=== PATIENT | male | born 1955 | race Caucasian/White ===

== ENCOUNTER 2017-02-26 08:25 | Emergency (ER) | payer OTHER ==
[~2017-02-26] VITALS: Ht 177.8 cm; Wt 90.7 kg
[~2017-02-26 08:25] MED LIST: ASPIRIN EC325 MG PO; HYZAAR 100-251 EACH PO; NORCO 10-325 T1 EACH PO; POTASSIUM CHLO20 ME1 PO; SIMVASTATIN40 MG PO; VERAPAMIL ER240 MG PO; VITAMIN D2000 UNI1 PO
[2017-02-26] MEDS ORDERED: ZOFRAN ODT4 MG PO (09:49)
[2017-02-26] MEDS ORDERED: OXAYDO5 MG PO (09:49)
== END 2017-02-26 10:12 | disposition home or self-care (01) ==
LOC: ED 08:25 → RAD 08:26 → ED 10:12
DX: S86.011A Strain of right Achilles tendon, initial encounter (principal); I10 Essential (primary) hypertension; Z79.82 Long term (current) use of aspirin; Z79.899 Other long term (current) drug therapy; W17.1XXA Fall into storm drain or manhole, initial encounter
CPT/HCPCS: 73630; 99283

== ENCOUNTER 2019-05-06 18:39 | Emergency (ER) | payer OTHER ==
[~2019-05-06] VITALS: Ht 177.8 cm; Wt 104.3 kg
--- OUTSIDE RECORDS SUMMARY | ~2019-05-06 | XMS | Encounter Summary ---
Demographics + + + | Address | [address] | | | [place] [address] | + + + | Home Phone | | + + + | Preferred Language | Unknown | + + + | Marital Status | Single | + + + | Anabaptism Affiliation | NON | + + + | Race | White | + + + | Ethnic Group | Not or | + + + Author + + + | Author | [facility] | + + + | Organization | [facility] | + + + | Address | Unknown | + + + | Phone | Unavailable | + + + Support + + + + + | Name | Relationship | Address | Phone | + + + + + | Linden Farah | ECON | [address] | | | | | [place] | | | | | [address] | | + + + + + Care Team Providers + +------+ + | Care Electrical Installer Name | Role | Phone | + +------+ + | Nolan Pierre MD | PCP | | + +------+ + Reason for Visit + + + | Reason | Comments | + + + | Prescription | | + + + Encounter Details +--------+ + + + + | Date | Type | Department | Care Team | Description | +--------+ + + + + | 06/25/ | Telephone | [facility] | Michelle Shields, | Prescription | | 2017 | | Pain Center at | MD [address] | | | | | [facility] | Ave [place], [place] | | | | | [address] | [address] | | | | | Mailcode: [facility] | [phone] | | | | | [facility] | | | | | | and Healing, | | | | | | Building , | | | | | | [facility] [place] | | | | | | [address] | | | | | | [phone] | | | +--------+ + + + + Social History + +-------+ +--------+------+ | Tobacco Use | Types | Packs/Day | Years | Date | | | | | Used | | + +-------+ +--------+------+ | Never Smoker | | | | | + +-------+ +--------+------+ + +---+---+---+ | Smokeless Tobacco: | | | | | Never Used | | | | + +---+---+---+ + + +---------+ + | Alcohol Use | Drinks/Week | oz/Week | Comments | + + +---------+ + | Yes | | | | + + +---------+ + + + + | Sex Assigned at | Date Recorded | | | | + + + | Not on file | | + + + + + + + | Job Start Date | Occupation | Industry | + + + + | Not on file | Not on file | Not on file | + + + + + + + + | Travel History | Travel Start | Travel End | + + + + + + | No recent travel history available. | + + documented as of this encounter Plan of Treatment Not on filedocumented as of this encounter Visit Diagnoses Not on filedocumented in this encounter"
--- OUTSIDE RECORDS SUMMARY | ~2019-05-06 | XMS | Encounter Summary ---
Demographics + + + | Address | [address] | | | [place] [address] | + + + | Home Phone | | + + + | Preferred Language | Unknown | + + + | Marital Status | Single | + + + | Methodist Affiliation | NON | + + + | Race | White | + + + | Ethnic Group | Not or | + + + Author + + + | Author | [facility] | + + + | Organization | [facility] | + + + | Address | Unknown | + + + | Phone | Unavailable | + + + Support + + + + + | Name | Relationship | Address | Phone | + + + + + | Linden aFrah | ECON | [address] | | | | | [place] | | | | | [address] | | + + + + + Care Team Providers + +------+ + | Care Glass Installer Name | Role | Phone | + +------+ + | Nolan Pierre MD | PCP | | + +------+ + Encounter Details +--------+ + + + + | Date | Type | Department | Care Team | Description | +--------+ + + + + | 09/10/ | Document-Sc | [facility] | Michelle Shields, | | | 2018 | annrito | Pain Center at | [address] | | | | | [facility] | [place], [place] | | | | | [address] | [address] | | | | | Mailcode: [id number] | [phone] | | | | | [facility] | | | | | | vict[place], | | | | | | [facility] | | | | | | Floor [place], [place] | | | | | | [address] | | | | | | [phone] | | | +--------+ + + + [...]
--- OUTSIDE RECORDS SUMMARY | ~2019-05-06 | XMS | Encounter Summary ---
Demographics + + + | Address | [address] | | | [place] [address] | + + + | Home Phone | | + + + | Preferred Language | Unknown | + + + | Marital Status | Single | + + + | Gnosticist Affiliation | NON | + + + | Race | White | + + + | Ethnic Group | Not or | + + + Author + + + | Author | [facility] | + + + | Organization | [facility] | + + + | Address | Unknown | + + + | Phone | Unavailable | + + + Support + + + + + | Name | Relationship | Address | Phone | + + + + + | Linden Farah | ECON | [address] | | | | | [place] | | | | | [address] | | + + + + + Care Team Providers + +------+ + | Care Hand Lacer Name | Role | Phone | + +------+ + | Nolan Pierre MD | PCP | | + +------+ + Reason for Referral Physical Therapy (Routine) +--------+--------+ + + + + | Status | Reason | Specialty | Diagnoses / | Referred By | Referred To | | | | | Procedures | Contact | Contact | +--------+--------+ + + + + | Closed | | Physical | Diagnoses | Velasquez, | [facility] | | | | Therapy | Achilles | Oscar Brock MD | Jame Figueroa | | | | | rupture, | [address] | [address] | | | | | right, | [address] | [address] | | | | | subsequent | [place], [place] | [address] | | | | | encounter | [address] | [place], [place] | | | | | Procedures | Phone: | [phone] Phone: | | | | | PHYSICAL | [phone] | [phone] | | | | | THERAPY | Fax: | Fax: | | | | | REFERRAL | [phone] | [phone] | +--------+--------+ + + + + Encounter Details +--------+ + + + + | Date | Type | Department | Care Team | Description | +--------+ + + + + | 04/05/ | MyChart | Orthopaedics at | Oscar Egn, | RE: Lola Farah | | 2017 | Encounter | [facility] [address] | MD [address] | | | | | Ave Mailcode: [id number] | [place], [place] | | | | | [facility] | [address] | | | | | and Healing, | [phone] | | | | | | | | | | | Floor [place], [place] | | | | | | [address] | | | | | | [phone] | | | +--------+ + + + [...] | | | + +---+---+---+ + + + | Sex Assigned at [...] filedocumented as of this encounter Visit Diagnoses + + | Diagnosis | + + | Achilles rupture, right, subsequent encounter - Primary | + + documented in this encounter"
--- OUTSIDE RECORDS SUMMARY | ~2019-05-06 | XMS | Encounter Summary ---
Demographics + + + | Address | [address] | | | [place] [address] | + + + | Home Phone | | + + + | Preferred Language | Unknown | + + + | Marital Status | Single | + + + | Synagogue Affiliation | NON | + + + | Race | White | + + + | Ethnic Group | Not or | + + + Author + + + | Author | [facility] | + + + | Organization | [facility] | + + + | Address | Unknown | + + + | Phone | Unavailable | + + + Support + + + + + | Name | Relationship | Address | Phone | + + + + + | Linden Farah | ECON | [address] | | | | | [place] | | | | | [address] | | + + + + + Care Team Providers + +------+ + | Care Airport Refueling Handler Name | Role | Phone | + +------+ + | Nolan Pierre MD | PCP | | + +------+ + Encounter Details +--------+ + + + + | Date | Type | Department | Care Team | Description | +--------+ + + + + | 03/26/ | MyChart | Orthopaedics at | Gage Nieto | RE: Lola Farah | | 2016 | Encounter | [facility] [address] PA-C [address] | | | | | [place] Mailcode: [id number] | Jonny Figueroa | | | | | [facility] | [place], [place] | | | | | and [place], | [address] | | | | | [facility] | [phone] | | | | | Floor [place], [place] | | | | | | [address] | | | | | | [phone] | | | +--------+ + + + [...]
--- OUTSIDE RECORDS SUMMARY | ~2019-05-06 | XMS | Encounter Summary ---
Demographics + + + | Address | [address] | | | [place] [address] | + + + | Home Phone | | + + + | Preferred Language | Unknown | + + + | Marital Status | Single | + + + | Religion Affiliation | NON | + + + | Race | White | + + + | Ethnic Group | Not or | + + + Author + + + | Author | [facility] | + + + | Organization | [facility] | + + + | Address | Unknown | + + + | Phone | Unavailable | + + + Support + + + + + | Name | Relationship | Address | Phone | + + + + + | Linden Farah | ECON | [address] | | | | | [place] | | | | | [address] | | + + + + + Care Team Providers + +------+ + | Care National Facilities Manager Name | Role | Phone | + +------+ + | Nolan Pierre MD | PCP | | + +------+ + Encounter Details +--------+ + + + + | Date | Type | Department | Care Team | Description | +--------+ + + + + | 03/26/ | MyChart | Orthopaedics at | aGge Nieto | RE: Lola Farah | | 2016 | Encounter | [facility] [address] PA-C [address] | | | | | [place] Mailcode: [id number] | [address] | | | | | [facility] | [place], [place] | | | | | and [place], | [address] | | | | | [facility] | [phone] | | | | | Floor [place], [place] | | | | | | [address] | | | | | | [phone] | | | +--------+ + + + [...]
--- OUTSIDE RECORDS SUMMARY | ~2019-05-06 | XMS | Encounter Summary ---
Demographics + + + | Address | [address] | | | [place] [address] | + + + | Home Phone | | + + + | Preferred Language | Unknown | + + + | Marital Status | Single | + + + | Christian Affiliation | NON | + + + | Race | White | + + + | Ethnic Group | Not or | + + + Author + + + | Author | [facility] | + + + | Organization | [facility] | + + + | Address | Unknown | + + + | Phone | Unavailable | + + + Support + + + + + | Name | Relationship | Address | Phone | + + + + + | Linden Farah | ECON | [address] | | | | | [place] | | | | | [address] | | + + + + + Care Team Providers + +------+ + | Care Pet Training Instructor Name | Role | Phone | + +------+ + | Nolan Pierre MD | PCP | | + +------+ + Encounter Details +--------+ + + + + | Date | Type | Department | Care Team | Description | +--------+ + + + + | 04/15/ | MyChart | Orthopaedics at | Oscar Eng, | RE: Lola Farah | | 2017 | Encounter | [facility] [address] | [address] | | | | | Ave Mailcode: CH12A | [place], [place] | | | | | [facility] | [address] | | | | | and [place], | [phone] | | | | | [facility] | | | | | | Floor [place], [place] | | | | | | [address] | | | | | | [phone] | | | +--------+ + + + [...]
--- OUTSIDE RECORDS SUMMARY | ~2019-05-06 | XMS | Encounter Summary ---
Demographics + + + | Address | [address] | | | [place] [address] | + + + | Home Phone | | + + + | Preferred Language | Unknown | + + + | Marital Status | Single | + + + | Roman Catholic Affiliation | NON | + + + | Race | White | + + + | Ethnic Group | Not or | + + + Author + + + | Author | [facility] | + + + | Organization | [facility] | + + + | Address | Unknown | + + + | Phone | Unavailable | + + + Support + + + + + | Name | Relationship | Address | Phone | + + + + + | Linden Farah | ECON | [address] | | | | | [place] | | | | | [address] | | + + + + + Care Team Providers + +------+ + | Care Pan Washer Name | Role | Phone | + +------+ + | Nolan Pierre MD | PCP | | + +------+ + Reason for Visit +---------+ + | Reason | Comments | +---------+ + | Post Op | right achilles | +---------+ + PROC - Outpatient Surgery (Routine) +--------+--------+ + + + + | Status | Reason | Specialty | Diagnoses / | Referred By | Referred To | | | | | Procedures | Contact | Contact | +--------+--------+ + + + + | Closed | | Orthopedics | Diagnoses | [facility] | [place], | | | | | Achilles | Epic Dept | Oscar Brock MD | | | | | rupture, | | [address] | | | | | right, | | Ave | | | | | initial | | [place], [place] | | | | | encounter | | [address] | | | | | Procedures | | Phone: | | | | | REQUEST TO | | [phone] | | | | | SURGERY | | Fax: | | | | | FLIGHT COORDINATOR | | [phone] | | | | | [place] REPAIR | | | | | | | ACHILLES | | | | | | | TENDON,PRIMA | | | | | | | [place] | | | | | | | REPAIR/GRAFT | | | | | | | ACHILLES | | | | | | | TENDON | | | +--------+--------+ + + + + Encounter Details +--------+---------+ + + + | Date | Type | Department | Care Team | Description | +--------+---------+ + + + | 06/16/ | Office | Orthopaedics at | Gage Nieto | S/P Achilles tendon | | 2017 | Visit | [facility] [address] | ANJEL Antonio [address] | repair (Primary Dx) | | | | [place] Mailcode: [id number] | [address] | | | | | [facility] | [place], [place] | | | | | and Healing, | [address] | | | | | Building | [phone] | | | | | Floor [place], [place] | | | | | | [address] | | | | | | [phone] | | | +--------+---------+ + + + Social History + +-------+ [...] + + documented as of this encounter Last Filed Vital Signs + + + + + | Vital Sign | Reading | Time Taken | Comments | + + + + + | Blood Pressure | - | - | | + + + + + | Pulse | - | - | | + + + + + | Temperature | - | - | | + + + + + | Respiratory Rate | - | - | | + + + + + | Oxygen Saturation | - | - | | + + + + + | Inhaled Oxygen | - | - | | | Concentration | | | | + + + + + | Weight | 86.2 kg (190 lb) | 06/16/2017 10:13 AM | | | | | PST | | + + + + + | Height | 177.8 cm (5' 10") | 06/16/2017 10:13 AM | | | | | PST | | + + + + + | Body Mass Index | 27.26 | 06/16/2017 10:13 AM | | | | | PST | | + + + + + documented in this encounter Patient Instructions Patient Instructions Gage Nieto PA-C - 06/16/2017 10:25 AM PSTIbuprofen - 600 mg by mouth four times a day for 14 days. Do not exceed this amount, 2400 mg/day. Take with f ood. If side effects develop, particularly GI, discontinue. or Naproxen - 500 mg by mouth every 12 hours for 14 days. Do not exceed 1250 mg/day. Take wi th food. If side effects develop, particularly GI, discontinue. documented in this encounter Progress Notes Gage Nieto PA-C - 06/16/2017 10:25 AM PSTDiagnosis: 03/18/17 R achilles repair SUBJECTIVE Lola Farah was seen today for his follow up visit. He has mild pain that is poorly co ntrolled with oral analgesics. He tolerates the pain well during the day, then pain is wors e at night and is limiting his sleep. He describes burning and fluctuating pain through the plantar foot. He believes the gabapentin is helping with the pain. Massage helps while ma ssaging, but pain comes back with stopping massage. This burning pain started when the marialuisa onal block was removed and is distinct from the surgical pain. Gabapentin 1200 TID. Presently ambulating WBAT in normal footwear. The complete past medical history, medications, allergies, surgical history, family history , social history, and a complete review of systems are included on the attached Patient Conf idential Health History form from the initial visit (see Scanned Documents/Media section) an d were reviewed and updated today. OBJECTIVE On examination the wound appears intact. Neurovascular exam is normal. ROM is decreased No tenderness to palpation along the achilles tendon or the plantar fascia insertion. ASSESSMENT/PLAN He returns in followup from the above. Continue with PT. Gabapentin prescribed today. Dr Carine Eng saw him today and he contacted anesthesia by email about this issue. F/U in 6 weeks Gage Nieto PA-C documented in t his encounter Plan of Treatment Not on filedocumented as of this encounter Procedures + +--------+ + + + | Procedure Name | Priori | Date/Time | Associated Diagnosis | Comments | | | ty | | | | + +--------+ + + + | ORDERS OTHER | | 06/16/2017 | | Results for this | | | | 12:00 AM | | procedure are in the | | | | PST | | results section. | + +--------+ + + + documented in this encounter Results ORDERS OTHER (06/16/2017 12:00 AM PST) + + + | Narrative | Performed At | + + + | | | + + + documented in this encounter Visit Diagnoses + + | Diagnosis | + + | S/P Achilles tendon repair - Primary Other postprocedural status | + + documented in this encounter
--- OUTSIDE RECORDS SUMMARY | ~2019-05-06 | XMS | Encounter Summary ---
Demographics + + + | Address | [address] | | | [place] [address] | + + + | Home Phone | | + + + | Preferred Language | Unknown | + + + | Marital Status | Single | + + + | Congregation Affiliation | NON | + + + | Race | White | + + + | Ethnic Group | Not or | + + + Author + + + | Author | [facility] | + + + | Organization | [facility] | + + + | Address | Unknown | + + + | Phone | Unavailable | + + + Support + + + + + | Name | Relationship | Address | Phone | + + + + + | Linden Farah | ECON | [address] | | | | | [place] | | | | | [address] | | + + + + + Care Team Providers + +------+ + | Care Architectural Drafter Name | Role | Phone | + [...] PT | | | | Therapy | Rupture of | Oscar Brock MD | Jame Figueroa | | | | | right | [address] | [address] | | | | | Achilles | [address] | [address] | | | | | tendon, | [place], [place] | [address] | | | | | subsequent | [address] | [place], [place] | | | | | encounter | Phone: | [phone] Phone: | | | | | Procedures | [phone] | [phone] | | | | | PHYSICAL | Fax: | Fax: | | | | | THERAPY | [phone] | [phone] | | | | | REFERRAL | | | +--------+--------+ + + + + Reason for Visit +---------+ + | Reason | Comments | +---------+ + | Post Op | right achilles surgery | +---------+ + PROC - Outpatient Surgery (Routine) +--------+--------+ + + + + | Status | Reason | Specialty | Diagnoses / | Referred By | Referred To | | | | | Procedures | Contact | Contact | +--------+--------+ + + + + | Closed | | Orthopedics | Diagnoses | [facility] | Velasquez, | | | | | Achilles | Epic Dept | Oscar Brock MD | | | | | rupture, | | [address] | | | | | right, | | Ave | | | | | initial | | [place], [place] | | | | | encounter | | [address] | | | | | Procedures | | Phone: | | | | | REQUEST TO | | [phone] | | | | | SURGERY | | Fax: | | | | | PMO BUSINESS ANALYST | | [phone] | | | | | [place] REPAIR | | | | | | | ACHILLES | | | | | | | TENDON,PRIMA | | | | | | | [place] | | | | | | | REPAIR/GRAFT | | | | | | | ACHILLES | | | | | | | TENDON | | | +--------+--------+ + + + + Encounter Details +--------+---------+ + + + | Date | Type | Department | Care Team | Description | +--------+---------+ + + + | 04/02/ | Office | Orthopaedics at | Oscar Eng, | Rupture of right | | 2017 | Visit | [facility] [address] | MD [address] | Achilles tendon, | | | | [address] | [place], [place] | subsequent encounter | | | | [address] | [address] | (Primary Dx) | | | | [place], [place] | [phone] | | | | | [address] | | | | | | [phone] | | | +--------+---------+ + + + [...] + + documented as of this encounter Progress Notes Oscar Eng MD - 04/02/2017 3:15 PM PDTDiagnosis: 03/18/17 R achilles repair SUBJECTIVE Lola Farah was seen today for his follow up visit. He has mild pain that is well cont rolled with oral analgesics. Presently ambulating NWB walker The complete past medical history, medications, allergies, surgical history, family history , social history, and a complete review of systems are included on the attached Patient Conf idential Health History form from the initial visit (see Scanned Documents/Media section) an d were reviewed and updated today. OBJECTIVE On examination the wound appears intact. Neurovascular exam is normal. ROM is decreased ASSESSMENT/PLAN He returns in followup from the above Referral for PT Protocol given for WB in Boot with heel wedges F/U in 3 weeks documen jeff in this encounter Plan of Treatment Not on filedocumented as of this encounter Procedures + +--------+ + + + | Procedure Name | Priori | Date/Time | Associated Diagnosis | Comments | | | ty | | | | + +--------+ + + + | ORDERS OTHER | | 04/02/2017 | | Results for this | | | | 12:00 AM | | procedure are in the | | | | PDT | | results section. | + +--------+ + + + documented in this encounter Results ORDERS OTHER (04/02/2017 12:00 AM PDT) + + + | Narrative | Performed At | + + + | | | + + + documented in this encounter Visit Diagnoses + + | Diagnosis | + + | Rupture of right Achilles tendon, subsequent encounter - Primary | + + documented in this encounter"
--- OUTSIDE RECORDS SUMMARY | ~2019-05-06 | XMS | Encounter Summary ---
Demographics + + + | Address | [address] | | | [place] [address] | + + + | Home Phone | | + + + | Preferred Language | Unknown | + + + | Marital Status | Single | + + + | Orthodoxy Affiliation | NON | + + + | Race | White | + + + | Ethnic Group | Not or | + + + Author + + + | Author | [facility] | + + + | Organization | [facility] | + + + | Address | Unknown | + + + | Phone | Unavailable | + + + Support + + + + + | Name | Relationship | Address | Phone | + + + + + | Linden Farah | ECON | [address] | | | | | [place] | | | | | [address] | | + + + + + Care Team Providers + +------+ + | Care Property Clerk Name | Role | Phone | + +------+ + | Nolan Pierre MD | PCP | | + +------+ + Reason for Visit +--------+ + | Reason | Comments | +--------+ + | Other | RX sig clarification | +--------+ + Encounter Details +--------+ + + + + | Date | Type | Department | Care Team | Description | +--------+ + + + + | 04/30/ | Telephone | Orthopaedics at | Oscar Eng, | Other (RX sig | | 2017 | | [facility] [address] | MD [address] | clarification ) | | | | Ave Mailcode: [id number] | [place], [place] | | | | | [facility] | [address] | | | | | and Healing, | [phone] | | | | | | | | | | | Floor [place], [place] | | | | | | [address] | | | | | | [phone] | | | +--------+ + + + [...]
--- OUTSIDE RECORDS SUMMARY | ~2019-05-06 | XMS | Encounter Summary ---
Demographics + + + | Address | [address] | | | [place] [address] | + + + | Home Phone | | + + + | Preferred Language | Unknown | + + + | Marital Status | Single | + + + | Restorationist Affiliation | NON | + + + | Race | White | + + + | Ethnic Group | Not or | + + + Author + + + | Author | [facility] | + + + | Organization | [facility] | + + + | Address | Unknown | + + + | Phone | Unavailable | + + + Support + + + + + | Name | Relationship | Address | Phone | + + + + + | Linden Farah | ECON | [address] | | | | | [place] | | | | | [address] | | + + + + + Care Team Providers + +------+ + | Care Front Office Coordinator Name | Role | Phone | + +------+ + | Nolan Pierre MD | PCP | | + +------+ + Encounter Details +--------+ + + + + | Date | Type | Department | Care Team | Description | +--------+ + + + + | 08/03/ | MyChart | [facility] | Michelle Shields, | RE: Lola Farah | | 2018 | Encounter | Pain Center at | [address] | | | | | [facility] | Ave [place], [place] | | | | | [address] | [address] | | | | | [facility] [phone] | | | | | [facility] | | | | | | and Healing, | | | | | | Building | | | | | | Floor [place], [place] | | | | | | [address] | | | | | | [phone] | | | +--------+ + + + [...]
--- OUTSIDE RECORDS SUMMARY | ~2019-05-06 | XMS | Encounter Summary ---
Demographics + + + | Address | [address] | | | [place] [address] | + + + | Home Phone | | + + + | Preferred Language | Unknown | + + + | Marital Status | Single | + + + | Zoroastrian Affiliation | NON | + + + | Race | White | + + + | Ethnic Group | Not or | + + + Author + + + | Author | [facility] | + + + | Organization | [facility] | + + + | Address | Unknown | + + + | Phone | Unavailable | + + + Support + + + + + | Name | Relationship | Address | Phone | + + + + + | Linden Farah | ECON | [address] | | | | | [place] | | | | | [address] | | + + + + + Care Team Providers + +------+ + | Care Rock Room Worker Name | Role | Phone | + [...] [address] | | | | | [facility] | [place], [place] | | | | | [address] | [address] | | | | | Mailcode: [id number] | [phone] | | | | | [facility] | | | | | | [address] [place], | | | | | | [facility] | | | | | | Floor [place], [place] | | | | | | [address] | | | | | | [phone] | | | +--------+ + + + [...]
--- OUTSIDE RECORDS SUMMARY | ~2019-05-06 | XMS | Encounter Summary ---
Demographics + + + | Address | [address] | | | [place] [address] | + + + | Home Phone | | + + + | Preferred Language | Unknown | + + + | Marital Status | Single | + + + | Moravian Affiliation | NON | + + + [...] + | Linden Farah | ECON | [address] | | | | | [place] | | | | | [address] | | + + + + + Care Team Providers + +------+ + | Care Sleeve Maker Name | Role | Phone | + +------+ + | Nolan Pierre MD | PCP | | + +------+ + Reason for Visit Diagnostic Testing (Routine) +--------+--------+ + + + + | Status | Reason | Specialty | Diagnoses / | Referred By | Referred To | | | | | Procedures | Contact | Contact | +--------+--------+ + + + + | Closed | | Clinical | Diagnoses | Lalit, | Cnl Emg | | | | Neurophysiolo | Chronic | Helen Andrews, | [address] | | | | gy | postoperativ | [address] | | | | | e pain | [place] [address] [place]ny | Mailcode: | | | | | Procedures | [address] | [facility] | | | | | EMG/NERVE | [place], [place] | for Health | | | | | CONDUCTION | [address] | and Healing, | | | | | STUDIES,ADUL | Phone: | Building 1, | | | | | T - | [phone] | 8th Floor | | | | | NEUROLOGY | Fax: | [place], [place] | | | | | [place] NEEDLE | [phone] | [address] | | | | | ELECTROMYOGR | | Phone: | | | | | APHY, EA | | [phone] | | | | | EXTREM, LTD | | Fax: | | | | | [place] NEEDLE | | [phone] | | | | | ELECTROMYOGR | | | | | | | APHY, EA | | | | | | | EXTREM, | | | | | | | COMPLETE [place] | | | | | | | MOTOR&/SENS | | | | | | | 1-2 NRV | | | | | | | CNDJ TST [place] | | | | | | | MOTOR&/SENS | | | | | | | 3-4 NRV | | | | | | | CNDJ TST [place] | | | | | | | MOTOR&/SENS | | | | | | | 5-6 NRV | | | | | | | CNDJ TST [place] | | | | | | | MOTOR&/SENS | | | | | | | 7-8 NRV | | | | | | | CNDJ TST | | | +--------+--------+ + + + + Encounter Details +--------+ + + + + | Date | Type | Department | Care Team | Description | +--------+ + + + + | 07/28/ | Hospital | Neurophysiology | Chary Banks MD | | | 2018 | Encounter | EMG at [facility] 8th Floor | [address] | | | | | [address] | [place], [place] | | | | | Mailcode: 8E | [address] | | | | | [facility] | [phone] | | | | | and [facility], | | | | | | Building 1, 8th | [address] | | | | | Floor [place], [place] | [place], [place] | | | | | [address] | [address] | | | | | [phone] | [phone] Marta, | | | | | | [address] | | | | | | [address] | | | | | | [place], [place] | | | | | | [address] | | +--------+ + + + + [...] + + documented as of this encounter Medications at Time of Discharge + + + +---------+ + + | Medication | Sig | Dispensed | Refills | Start | End Date | | | | | | Date | | + + + +---------+ + + | aspirin 325 mg | Take 325 mg by mouth | | 0 | | | | oral tablet | once daily. | | | | | + + + +---------+ + + | gabapentin 600 mg | Take 2 tablets by | 168 | 3 | 06/16/20 | | | oral tablet | mouth three times | tablet | | 17 | | | | daily. | | | | | + + + +---------+ + + | LOSARTAN POTASSIUM | Take by mouth. | | 0 | | | | (LOSARTAN ORAL) | | | | | | + + + +---------+ + + | | Take 100 mg by mouth | | 0 | 07/08/19 | | | losartan-hydrochloro | once daily. | | | 12 | | | thiazide 100-25 mg | | | | | | | oral tablet | | | | | | + + + +---------+ + + | nortriptyline 10 | Take 1 capsule by | 30 | 3 | 06/24/20 | | | mg oral | mouth once daily at | capsule | | 17 | | | capsuleIndications: | bedtime. | | | | | | Neuropathic | Indications: | | | | | | | Neuropathic | | | | | + + + +---------+ + + | nortriptyline 25 | Take 2 capsules by | 60 | 3 | 07/16/19 | | | mg oral capsule | mouth once daily at | capsule | | 18 | | | | bedtime. | | | | | + + + +---------+ + + | oxyCODONE | Take 1 tablet by | 30 | 0 | 07/01/19 | | | (immediate release) | mouth once daily. | tablet | | 18 | | | 5 mg oral | Indications: | | | | | | tabletIndications: | Neuropathic pain | | | | | | Neuropathic pain | | | | | | + + + +---------+ + + | oxyCODONE | Take 1 tablet by | 60 | 0 | 06/24/20 | | | (immediate release) | mouth once daily as | tablet | | 17 | | | 5 mg oral tablet | needed (for pain.). | | | | | + + + +---------+ + + | potassium chloride | Take 20 mEq by mouth | | 1 | 02/15/20 | | | SR 20 mEq oral | once daily. | | | 17 | | | tablet,ER | | | | | | | particles/crystals | | | | | | + + + +---------+ + + | simvastatin 40 mg | Take 40 mg by mouth | | 1 | 02/15/20 | | | oral tablet | once daily. | | | 17 | | + + + +---------+ + + | verapamil SR 12 hr | Take 240 mg by mouth | | 1 | 02/15/20 | | | 240 mg oral tablet | once. | | | 17 | | | extended release | | | | | | + + + +---------+ + + documented as of this encounter Plan of Treatment Not on filedocumented as of this encounter Procedures + +--------+ + + + | Procedure Name | Priori | Date/Time | Associated Diagnosis | Comments | | | ty | | | | + +--------+ + + + | EMG/NERVE CONDUCTION | Routin | 07/28/2017 | Chronic | Results for this | | STUDIES,ADULT - | e | 12:00 AM | postoperative pain | procedure are in the | | NEUROLOGY | | PST | | results section. | + +--------+ + + + documented in this encounter Results EMG/NERVE CONDUCTION STUDIES,ADULT - NEUROLOGY (07/28/2017 12:00 AM PST) + + + | Impressions | Performed At | + + + | Patient Name: Lola Farah Date of : 1955 Medical | [facility], | | Record Number: [id number] Date of Test: 07/28/2017 Place of | POINT OF CARE | | Service: [facility] (29) - [id number] Department: [id number] [facility] Nerve | TESTS | | Conduction Studies/Electromyography Patient History | | | 61-year-old male who is right foot numbness and dysfunction following | | | left block of the sciatic nerve for Achilles tendon repair. Patient | | | with persistent numbness and obtained of the sole of the foot | | | Summary Nerve conduction studies: 1. Right peroneal-EDB CMAP had | | | normal amplitude, distal latency and conduction velocity 2. Right | | | tibial-AH CMAP had normal amplitude, DL and CV. 3. Right sural SNAP | | | had markedly low amplitude when per to the left and normal peak | | | latency. 4. Right superficial peroneal SNAP had markedly low | | | amplitude when per to the left and normal peak latency. 5. Left | | | peroneal-EDB CMAP had normal amplitude, distal latency and conduction | | | velocity 6. Left sural SNAP had normal amplitude and peak latency. | | | 7. Left superficial peroneal SNAP had normal amplitude and peak | | | latency EMG: Needle examination of selected muscles of the right | | | short prominent fibrillation potential and positive sharp wave | | | especially in the distal tibial enervated muscle shows reduced | | | recruitment with neurogenic motor unit potential. There was mild motor | | | unit potentials in the right peroneal enervated muscle. | | | Conclusion Abnormal study. There is evidence for right sciatic | | | neuropathy affecting more severely the tibial division with evidence | | | of reinnervation in proximal innervated muscles and mild ongoing | | | reinnervation in distal innervated muscle. Chary Banks MD. | | | Suggested Modifier: None Suggested CPT: 99921 7-8 Nerve Conduction | | | studies 96293 EMG -Each Extremity, Completed (>5 Muscles) w/NCS, qty | | | 1 Suggested Dx: G57.01, Lesion of the sciatic nerve, right lower | | | limb. Electronically signed on 07/30/2017 at 1:12 PM CHARY BANKS, | | | . | | + + + + + + | Narrative | Performed At | + + + | | | + + + + + + + + | Performing | Address | City/State/Zipcode | Phone Number | | Organization | | | | + + + + + | [facility] | [address] | [place] [address] | | | OF CARE TESTS | | | | + + + + + documented in this encounter Visit Diagnoses + + | Diagnosis | + + | Sciatic neuropathy, right | + + | Chronic postoperative pain Other chronic postoperative pain | + + documented in this encounter"
--- OUTSIDE RECORDS SUMMARY | ~2019-05-06 | XMS | Encounter Summary ---
Demographics + + + | Address | [address] | | | [place] [address] | + + + | Home Phone | | + + + | Preferred Language | Unknown | + + + | Marital Status | Single | + + + | Nondenominational Affiliation | NON | + + + | Race | White | + + + | Ethnic Group | Not or | + + + Author + + + | Author | [facility] | + + + | Organization | [facility] | + + + | Address | Unknown | + + + | Phone | Unavailable | + + + Support + + + + + | Name | Relationship | Address | Phone | + + + + + | Linden Farah | ECON | [address] | | | | | [place] | | | | | [address] | | + + + + + Care Team Providers + +------+ + | Care Cabinet Builder Name | Role | Phone | + +------+ + | Nolan Pierre MD | PCP | | + +------+ + Encounter Details +--------+ + + + + | Date | Type | Department | Care Team | Description | +--------+ + + + + | 04/06/ | MyChart | Orthopaedics at | Oscar Eng, | RE: Lola Farah | | 2017 | Encounter | [facility] [address] | [address] | | | | | Ave Mailcode: CH12A | [place], [place] | | | | | [facility] | [address] | | | | | and [place], | [phone] | | | | | [facility] | | | | | | Floor [place], [place] | | | | | | [address] | | | | | | [phone] | | | +--------+ + + + [...]
--- OUTSIDE RECORDS SUMMARY | ~2019-05-06 | XMS | Encounter Summary ---
Demographics + + + | Address | [address] | | | [place] [address] | + + + | Home Phone | | + + + | Preferred Language | Unknown | + + + | Marital Status | Single | + + + | Confucianism Affiliation | NON | + + + | Race | White | + + + | Ethnic Group | Not or | + + + Author + + + | Author | [facility] | + + + | Organization | [facility] | + + + | Address | Unknown | + + + | Phone | Unavailable | + + + Support + + + + + | Name | Relationship | Address | Phone | + + + + + | Linden Farah | ECON | [address] | | | | | [place] | | | | | [address] | | + + + + + Care Team Providers + +------+ + | Care Sack Cleaner Name | Role | Phone | + +------+ + | Nolan Pierre MD | PCP | | + +------+ + Encounter Details +--------+ + + + + | Date | Type | Department | Care Team | Description | +--------+ + + + + | 06/29/ | Telephone | [facility] | Michelle Shields, | | | 2018 | | Pain Center at | [address] | | | | | [facility] | [place], [place] | | | | | [address] | [address] | | | | | Mailcode: CH15P | [phone] | | | | | [facility] | | | | | | victor [address] [place], | | | | | | Building | | | | | | [place], [place] | | | | | | [address] | | | | | | [phone] | | | +--------+ + + + [...]
--- OUTSIDE RECORDS SUMMARY | ~2019-05-06 | XMS | Encounter Summary ---
Demographics + + + | Address | [address] | | | [place] [address] | + + + | Home Phone | | + + + | Preferred Language | Unknown | + + + | Marital Status | Single | + + + | Alevism Affiliation | NON | + + + | Race | White | + + + | Ethnic Group | Not or | + + + Author + + + | Author | [facility] | + + + | Organization | [facility] | + + + | Address | Unknown | + + + | Phone | Unavailable | + + + Support + + + + + | Name | Relationship | Address | Phone | + + + + + | Linden Farah | ECON | [address] | | | | | [place] | | | | | [address] | | + + + + + Care Team Providers + +------+ + | Care Associate Java Developer Name | Role | Phone | + +------+ + | Nolan Pierre MD | PCP | | + +------+ + Reason for Referral Diagnostic Testing (Routine) +--------+--------+ + + + + | Status | Reason | Specialty | Diagnoses / | Referred By | Referred To | | | | | Procedures | Contact | Contact | +--------+--------+ + + + + | Closed | | Clinical | Diagnoses | Lalit, | Cnl Emg | | | | Neurophysiolo | Chronic | Helen Andrews, | [address] | | | | gy | postoperativ | [address] | | | | | e pain | [place] Jonny | Mailcode: | | | | | Procedures | [address] | [facility] | | | | | EMG/NERVE | [place], [place] | for Health | | | | | CONDUCTION | [address] | and Healing, | | | | | STUDIES,ADUL | Phone: | Building 1, | | | | | T - | [phone] | 8th Floor | | | | | NEUROLOGY | Fax: | [place], [place] | | | | | [place] NEEDLE | [phone] | [address] | | | | | ELECTROMYOGR | | Phone: | | | | | APHY, EA | | [phone] | | | | | EXTREM, LTD | | Fax: | | | | | [place] NEEDLE | | [phone] | | | | | ELECTROMYOGR | | | | | | | APHY, EA | | | | | | | EXTREM, | | | | | | | COMPLETE [place] | | | | | | | MOTOR&/SENS | | | | | | | 1-2 NRV | | | | | | | CNDJ TST [place] | | | | | | | MOTOR&/SENS | | | | | | | 3-4 NRV | | | | | | | CNDJ TST [place] | | | | | | | MOTOR&/SENS | | | | | | | 5-6 NRV | | | | | | | CNDJ TST [place] | | | | | | | MOTOR&/SENS | | | | | | | 7-8 NRV | | | | | | | CNDJ TST | | | +--------+--------+ + + + + Reason for Visit + + + | Reason | Comments | + + + | Follow-up Plan | | + + + Encounter Details +--------+ + + + + | Date | Type | Department | Care Team | Description | +--------+ + + + + | 06/17/ | Telephone | [facility] | Helen Cohn | Follow-up Plan | | 2017 | | Pain Center at | MD Juliana [address] | | | | | [facility] | [facility] | | | | | [address] | [place], [place] | | | | | Mailcode: CH15P | [address] | | | | | [facility] | [phone] | | | | | and Healing, | | | | | | | | | | | | [place], [place] | | | | | | [address] | | | | | | [phone] | | | +--------+ + + + [...] Farah Date of : 1955 Medical | [facility], | | Record Number: [id number] Date of Test: 07/28/2017 Place of | POINT OF CARE | | Service: [facility] (39) - [address] Department: [id number] [facility] Nerve | TESTS | | Conduction Studies/Electromyography [...] | | Suggested Modifier: None Suggested CPT: 50301 7-8 Nerve Conduction | | | studies 86332 EMG -Each Extremity, Completed (>5 Muscles) w/NCS, qty | | | 1 Suggested Dx: G57.01, Lesion of the sciatic nerve, right lower | | | limb. Electronically signed on 07/30/2017 at 1:12 PM CHARY BANKS | | | . | | + + + + + + | Narrative | Performed At | + + + | | | + + + + + + + + | Performing | Address | City/State/Zipcode | Phone Number | | Organization | | | | + + + + + | [facility] | [address] | [place] [address] | | | OF CARE TESTS | | | | + + + + + documented in this encounter Visit Diagnoses + + | Diagnosis | + + | Chronic postoperative pain - Primary Other chronic postoperative pain | + + documented in this encounter"
--- OUTSIDE RECORDS SUMMARY | ~2019-05-06 | XMS | Encounter Summary ---
Demographics + + + | Address | [address] | | | [place] [address] | + + + | Home Phone [...] Author + + + | Author | [facility] | + + + | Organization | [facility] | + + + | Address | Unknown | + + + | Phone | Unavailable | + + + Support + + + + + | Name | Relationship | Address | Phone | + + + + + | Linden Farah | ECON | [address] | | | | | [place] | | | | | [address] | | + + + + + Care Team Providers + +------+ + | Care Supervisor Melt House Name | Role | Phone | + +------+ + | Nolan Pierre MD | PCP | | + +------+ + Encounter Details +--------+ + + + + | Date | Type | Department | Care Team | Description | +--------+ + + + + | 09/30/ | MyChart | [facility] | Michelle Shields, | RE: Lola Farah | | 2018 | Encounter | Pain Center at | [address] | | | | | [facility] | Ave [place], [place] | | | | | [address] | [address] | | | | | Mailcode: [facility] | [phone] | | | | | [facility] | | | | | | and Healing, | | | | | | Building | | | | | | Floor [place], [place] | | | | | | [address] | | | | | | [phone] | | | +--------+ + + + [...]
--- OUTSIDE RECORDS SUMMARY | ~2019-05-06 | XMS | Encounter Summary ---
Demographics + + + | Address | [address] | | | [place] [address] | + + + | Home Phone | | + + + | Preferred Language | Unknown | + + + | Marital Status | Single | + + + | Taoism Affiliation | NON | + + + | Race | White | + + + | Ethnic Group | Not or | + + + Author + + + | Author | [facility] | + + + | Organization | [facility] | + + + | Address | Unknown | + + + | Phone | Unavailable | + + + Support + + + + + | Name | Relationship | Address | Phone | + + + + + | Linden Farah | ECON | [address] | | | | | [place] | | | | | [address] | | + + + + + Care Team Providers + +------+ + | Care Product Support Representative Name | Role | Phone | + +------+ + | Nolan Pierre MD | PCP | | + +------+ + Encounter Details +--------+ + + + + | Date | Type | Department | Care Team | Description | +--------+ + + + + | 03/04/ | Documentati | Orthopaedics at | Oscar Eng, | | | 2017 | on | BRENDAN [address] | [address] | | | | | [place] Mailcode: CH12A | [place], [place] | | | | | [facility] | [address] | | | | | and Healing, | [phone] | | | | | [facility] | | | | | | Floor [place], [place] | | | | | | [address] | | | | | | [phone] | | | +--------+ + + + + Social History + +-------+ +--------+------+ | Tobacco Use | Types | Packs/Day | Years | Date | | | | | Used | | + +-------+ +--------+------+ | Never Assessed | | | | | + +-------+ +--------+------+ + + + | Sex Assigned at [...]
--- OUTSIDE RECORDS SUMMARY | ~2019-05-06 | XMS | Encounter Summary ---
Demographics + + + | Address | [address] | | | [place] [address] | + + + | Home Phone | | + + + | Preferred Language | Unknown | + + + | Marital Status | Single | + + + | Tenriism Affiliation | NON | + + + | Race | White | + + + | Ethnic Group | Not or | + + + Author + + + | Author | [facility] | + + + | Organization | [facility] | + + + | Address | Unknown | + + + | Phone | Unavailable | + + + Support + + + + + | Name | Relationship | Address | Phone | + + + + + | Linden Farah | ECON | [address] | | | | | [place] | | | | | [address] | | + + + + + Care Team Providers + +------+ + | Care Counter Intelligence Name | Role | Phone | + +------+ + | Nolan Pierre MD | PCP | | + +------+ + Reason for Visit + + + | Reason | Comments | + + + | Refill Request | | + + + Encounter Details +--------+--------+ + + + | Date | Type | Department | Care Team | Description | +--------+--------+ + + + | 09/26/ | Refill | Orthopaedics at | Gage Nieto | Refill Request | | 2017 | | [facility] [address] | ANJEL Antonio [address] | | | | | [place] Mailcode: CH12A | [facility] | | | | | [facility] | [place], [place] | | | | | and [place], | [address] | | | | | [facility] | [phone] | | | | | Floor [place], [place] | | | | | | [address] | | | | | | [phone] | | | +--------+--------+ + + + Social History + +-------+ [...]
--- OUTSIDE RECORDS SUMMARY | ~2019-05-06 | XMS | Encounter Summary ---
Demographics + + + | Address | [address] | | | [place] [address] | + + + | Home Phone | | + + + | Preferred Language | Unknown | + + + | Marital Status | Single | + + + | Yarsani Affiliation | NON | + + + | Race | White | + + + | Ethnic Group | Not or | + + + Author + + + | Author | [facility] | + + + | Organization | [facility] | + + + | Address | Unknown | + + + | Phone | Unavailable | + + + Support + + + + + | Name | Relationship | Address | Phone | + + + + + | Linden Farah | ECON | [address] | | | | | [place] | | | | | [address] | | + + + + + Care Team Providers + +------+ + | Care Armature Rewinder Name | Role | Phone | + [...] | Chronic | Helen Andrews, | [address] | | | | gy | postoperativ | [address] | | | | | e pain | [address] | Mailcode: | | | | | Procedures | [address] | [facility] | | | | | EMG/NERVE | [place], [place] | for Health | | | | | CONDUCTION | [address] | and Healing, | | | | | STUDIES,ADUL | Phone: | Building 1, | | | | | T - | [phone] | 8th Floor | | | | | NEUROLOGY | Fax: | [place], [place] | | | | | [place] | [phone] | [address] | | | | | ELECTROMYOGR | | Phone: | | | | | APHY, EA | | [phone] | | | | | EXTREM, LTD | | Fax: | | | | | [place] | | [phone] | | | | | ELECTROMYOGR | | | | | | | APHY, EA | | | | | | | EXTREM, | | | | | | | COMPLETE [place] | | | | | | | MOTOR&/SENS | | | | | | | 1-2 NRV | | | | | | | CNDJ TST [place] | | | | | | | MOTOR&/SENS | | | | | | | 3-4 NRV | | | | | | | CNDJ TST [place] | | | | | | | MOTOR&/SENS | | | | | | | 5-6 NRV | | | | | | | CNDJ TST [place] | | | | | | | [...] | 2018 | Encounter | EMG at [facility] 8th Floor | [address] | | | | | [address] | [place], [place] | | | | | Mailcode: 8E | [address] | | | | | [facility] | [phone] | | | | | and [facility], | | | | | | Building 1, 8th | [address] | | | | | Floor [place], [place] | [place], [place] | | | | | [address] | [address] | | | | | [phone] | [phone] Marta, | | | | | | [address] | | | | | | [address] | | | | | | [place], [place] | | | | | | [address] | | +--------+ + + + + [...] Farah Date of : 1955 Medical | [facility], | | Record Number: [id number] Date of Test: 07/28/2017 Place of | POINT OF CARE | | Service: [facility] (56) - [address] Department: [id number] [facility] Nerve | TESTS | | Conduction Studies/Electromyography [...] | | Suggested Modifier: None Suggested CPT: 58359 7-8 Nerve Conduction | | | studies 49438 EMG -Each Extremity, Completed (>5 Muscles) w/NCS, [...] + + | [facility] | [address] [facility] | [place] [address] | | | OF CARE TESTS | | | | + + + + + documented in this encounter Visit Diagnoses + + | Diagnosis | + + | Sciatic neuropathy, right | + + | Chronic postoperative pain Other chronic postoperative pain | + + documented in this encounter"
--- OUTSIDE RECORDS SUMMARY | ~2019-05-06 | XMS | Encounter Summary ---
Demographics + + + | Address | [address] | | | [place] [address] | + + + | Home Phone | | + + + | Preferred Language | Unknown | + + + | Marital Status | Single | + + + | Christianity Affiliation | NON | + + + | Race | White | + + + | Ethnic Group | Not or | + + + Author + + + | Author | [facility] | + + + | Organization | [facility] | + + + | Address | Unknown | + + + | Phone | Unavailable | + + + Support + + + + + | Name | Relationship | Address | Phone | + + + + + | Linden Farah | ECON | [address] | | | | | [place] | | | | | [address] | | + + + + + Care Team Providers + +------+ + | Care Sales Expert Name | Role | Phone | + +------+ + | Nolan Pierre MD | PCP | | + +------+ + Encounter Details +--------+ + + + + | Date | Type | Department | Care Team | Description | +--------+ + + + + | 07/09/ | MyChart | [facility] | Michelle Shields, | RE: Lola Farah | | 2018 | Encounter | Pain Center at | [address] | | | | | [facility] | [place], [place] | | | | | [address] | [address] | | | | | Mail[facility]: [facility] | [phone] | | | | | [facility] | | | | | | and Healing, | | | | | | Building | | | | | | Floor [place], [place] | | | | | | [address] | | | | | | [phone] | | | +--------+ + + + [...]
--- OUTSIDE RECORDS SUMMARY | ~2019-05-06 | XMS | Encounter Summary ---
Demographics + + + | Address | [address] | | | [place] [address] | + + + | Home Phone [...] Author + + + | Author | [facility] | + + + | Organization | [facility] | + + + | Address | Unknown | + + + | Phone | Unavailable | + + + Support + + + + + | Name | Relationship | Address | Phone | + + + + + | Linden Farah | ECON | [address] | | | | | [place] | | | | | [address] | | + + + + + Care Team Providers + +------+ + | Care Service Station Manager Name | Role | Phone | + +------+ + | Nolan Pierre MD | PCP | | + +------+ + Reason for Visit AUTH/CERT +--------+--------+ + + + + | Status | Reason | Specialty | Diagnoses / | Referred By | Referred To | | | | | Procedures | Contact | Contact | +--------+--------+ + + + + | | | | | | | +--------+--------+ + + + + Encounter Details +--------+---------+ + + + | Date | Type | Department | Care Team | Description | +--------+---------+ + + + | 03/18/ | Surgery | 6A Intra Op [facility] | Oscar Eng, | RIGHT ACHILLES | | 2017 | | [facility] | MD [address] | REPAIR | | | | Admitting Desk | [place], [place] | | | | | Located on the | [address] | | | | | floor [address] [facility] | [phone] | | | | | Jonny Figueroa | | | | | | [place], [place] | | | | | | [address] | | | +--------+---------+ + + + [...] + + + | Blood Pressure | 118/64 | 03/18/2017 1:00 PM | | | | | PDT | | + + + + + | Pulse | 51 | 03/18/2017 1:00 PM | | | | | PDT | | + + + + + | Temperature | 36.1 C (97 F) | 03/18/2017 11:54 AM | | | | | PDT | | + + + + + | Respiratory Rate | 8 | 03/18/2017 1:00 PM | | | | | PDT | | + + + + + | Oxygen Saturation | 98% | 03/18/2017 1:00 PM | | | | | PDT | | + + + + + | Inhaled Oxygen | - | - | | | Concentration | | | | + + + + + | Weight | 88 kg (194 lb 0.1 | 03/18/2017 7:00 AM | | | | oz) | PDT | | + + + + + | Height | 177.8 cm (5' 10") | 03/18/2017 7:00 AM | | | | | PDT | | + + + + + | Body Mass Index | 27.84 | 03/18/2017 7:00 AM | | | | | PDT | | + + + + + documented in this encounter Discharge Instructions Instructions Shruti Chavez RN - 03/18/2017General Discharge Instructions for Same-Day Proced ure Patients: ? Remember that you are under the influence of medications. Do not stay alone. A responsible person should be with you. Do not drive, drink alcohol or make important personal or business decisions for 24 hour s. ? Resume normal activity and return to work when advised by your Doctor. Pain Management: Your last oral pain medication was given at: None given at [facility] ? Please follow your Doctor s instructions on the medication bottle. ? Do not take pain medication on an empty stomach, as this may cause nausea and vomiting. ? Do not drive or drink alcohol while on opioid pain medication. ? If you received a Peripheral Nerve Block, please take pain medication when numbing begins to wear off or when you go to bed. This will allow for pain coverage when your nerve block wears off during the night. ? If pain is not relieved or increases despite following these instructions, please call yo Doctor. Diet: ? If you do not experience nausea or vomiting resume your regular diet. Eat lightly and av oid large, high fat or highly spiced meals for 24-48 hours. ? Constipation can be a side effect of opioid pain medication. Take stool softeners, incre ase dietary fiber and drink plenty of water to prevent this. Wound/Dressing/Drain Care: ? Call your Doctor if there is excessive bleeding, redness, swelling or drainage at the ope rative site. Urination: ? Please contact your Doctor or proceed to the nearest Emergency Room if you have not urina jeff/voided in 8 hours after discharge. IV Site Care Instructions: ? Monitor IV site for pain, redness, swelling and/or drainage. If present, call your Docto r immediately. ? Minor redness and/or tenderness may be treated with warm, moist compresses for 24-48 hour s. If the area is still red and/or tender after this, notify your Doctor. Call your Doctor if you experience: ? Persistent nausea or vomiting. ? Fever ?101F or chills. ? Increased or uncontrolled pain despite taking pain medications. Call 911 if you experience difficulty breathing or unusual shortness of breath. Additional Home Care Instructions: See surgeon instructions Follow-up Appointment: As scheduled After arriving home you may receive a patient satisfaction survey from "Gina Hood". We vitaliy brunnre appreciate your feedback on the survey to help us provide excellent service to you and your family. documented in this encounter Medications at Time of Discharge [...] + + + +---------+ + + | MEDICAL SUPPLY, | Knee scooter | 1 each | 0 | 03/18/20 | | | MISCELLANEOUS (RX | | | | 17 | 7 | | DURABLE MEDICAL | | | | | | | EQUIPMENT HI) | | | | | | + + + +---------+ + + | MEDICAL SUPPLY, | | 1 each | 0 | 03/18/20 | | | MISCELLANEOUS (RX | | | | 17 | 7 | | DURABLE MEDICAL | | | | | | | EQUIPMENT HI) | | | | | | + + + +---------+ + + documented as of this encounter Plan of Treatment Not on filedocumented as of this encounter Procedures + +--------+ + + + | Procedure Name | Priori | Date/Time | Associated Diagnosis | Comments | | | ty | | | | + +--------+ + + + | ACHILLES TENDON | Routin | 03/24/2017 | | Results for this | | REPAIR | e | 9:28 PM | | procedure are in the | | | | PDT | | results section. | + +--------+ + + + | ACHILLES TENDON | Urgent | 03/18/2017 | RIGHT ACHILLES | | | REPAIR | | 10:18 AM | RUPTURE | | | | Surgic | PDT | | | | | al | | | | + +--------+ + + + | ANTIBODY SCREEN | Urgent | 03/18/2017 | | Results for this | | | | 8:16 AM | | procedure are in the | | | | PDT | | results section. | + +--------+ + + + | TYPE AND SCREEN | Urgent | 03/18/2017 | | Results for this | | | | 8:16 AM | | procedure are in the | | | | PDT | | results section. | + +--------+ + + + | ABO & RH TYPE | Urgent | 03/18/2017 | | Results for this | | | | 8:16 AM | | procedure are in the | | | | PDT | | results section. | + +--------+ + + + | CAPILLARY BLOOD | Routin | 03/18/2017 | Achilles rupture, | Results for this | | GLUCOSE (NO CHG), | e | 7:27 AM | right, initial | procedure are in the | | POC | | PDT | encounter | results section. | + +--------+ + + + | INTRAPROCEDURE | Routin | 03/18/2017 | | Results for this | | IMAGING | e | 7:11 AM | | procedure are in the | | | | PDT | | results section. | + +--------+ + + + | CARDIOLOGY | | 03/18/2017 | | Results for this | | | | 12:00 AM | | procedure are in the | | | | PDT | | results section. | + +--------+ + + + documented in this encounter Results ACHILLES TENDON REPAIR (03/24/2017 9:28 PM PDT) + + + | Narrative | Performed At | + + + | Oscar Eng MD 03/24/2017 9:28 PM [facility] | | [facility] DEPARTMENT OF ORTHOPAEDICS & REHABILITATION | | | OPERATIVE REPORT | | | Patient Name: Lola Farah Date of : 1955 Medical | | | Record Number: [id number] Contract Serial Number:: [id number] Report | | | Author: Oscar Eng MD Procedure Date: 03/18/2017 | | | Attending Physician: 1. Oscar Eng MD [employer](s): 1. | | | Gage ARRINGTON Preoperative Diagnosis(es): 1. Right | | | Achilles rupture Postoperative Diagnosis(es): 1. same | | | Procedure(s) Performed: 1. 2 incision achilles repair | | | Anesthesia Type: General and regional Estimated Blood Loss: | | | 40cc IV Fluids: Please see anesthesia records | | | Tourniquet Time: * No tourniquets in log * Complications: None | | | Apparent Orthopaedic Implants: 1. none Specimens: 1. | | | none Surgical Drains: none Indications for Procedure(s): | | | Lola Farah is a 61 y.o. male who sustained the above injury. | | | We discussed op and non-op management. He elected for operative | | | repair. I reviewed the planned procedure, alternatives the | | | associated risks and answered questions. We discussed the risks of | | | the procedure including but not limited to bleeding, infection, | | | damage to nerves/tendons/vessels, possible need for further surgery, | | | possible loss of limb and life, blood clots, and anesthesia | | | complications. He expressed understanding in the presence of | | | family, and wishes to proceed. Surgical Findings In Brief: | | | Complete rupture Description of the procedure(s) in detail: | | | The patient was seen in the preoperative area where the consent form | | | was reviewed and confirmed with the patient, the correct site was | | | marked, and the patient freely assented to proceed with the | | | procedure as planned. The patient was then brought back to the | | | operating room. Anesthesia was induced without event. The patient | | | was positioned appropriately in the supine position, and bony | | | prominances were padded. A tourniquet was not placed around the | | | thigh. The thigh was occluded with a 10-15 drape. The surgical | | | site was prepped and draped in the usual sterile fashion. Prior | | | to the beginning of the procedure the team paused to verify the | | | patient's identity, as well as the procedure to be performed and the | | | correct side/site. All equipment required was ready and | | | available. Images were confirmed. The appropriate implants and | | | instruments were available. Antibiotics were administered prior to | | | incision. Sequential compression devices were placed prior to | | | incision as well. Approach for 2 incision repair: The incision | | | was planned and then marked on the skin for a proximal medial and | | | distal medial approach to the achilles. An incision using a 15 | | | blade was made through the skin with blunt dissection carefully down | | | to fascia. Proximally the fascia was incised, and there was | | | evidence of hematoma within the sheath. The tendon was captured | | | proximally with #5 fiberwire Flushing sutures. Then distally the | | | tendon sheath was incised exposing the distal tendon. This was | | | similarly captured with Flushing sutures. A tendon passer was used | | | to shuttle fiberwire ends from one incision to the other. Next a | | | free needle was used to secure the tendon proximally and distally | | | using the gift box technique. Tensioning was performed, and cycled | | | against resistance prior to tieing suture ends so as to remove | | | slack from the repair. Then with the foot brought into | | | plantarflexion the suture ends were tied (10 knots each). Once | | | again the repair was tested and held nicely. Wounds were then | | | irrigated. Closure was performed with 4-0 biosyn in the fascia and | | | dermis distally. This was followed by 4-0 nylon in the skin. A | | | similar closure was performed proximally but with 3-0 biosyn and | | | nylon. A sterile dressing was then placed consisting of xeroform, | | | fluffs, ABDs and a short leg plaster NWB splint. The patient was | | | woken from anesthesia in the operating room and then transferred to | | | the post anesthesia care unit in stable condition. At the end of | | | the case the final instrument and sponge counts were correct. I, | | | Oscar Eng was present/available during the critical portions of | | | the procedure. Please list Gage ARRINGTON as 1st assist. | | | No qualified residents were available to assist. Disposition/Post | | | operative plan: 1. Weight Bearing: NWB 3 weeks in splint 2. | | | Acute pain: PO 3. Diet: Advance 4. PACU Disposition: home 5. | | | Medications: Resume 6. VTE prophalaxis: rivaroxaban 2 weeks 7. | | | Anticipated discharge: when D/C goals are met 8. Wound instructions | | | Keep splint Clean, dry, intact 9. First post op visit at 3 weeks, | | | will eval for suture/staple removal 10. Weightbearing at 3 weeks | | | 11. Physical therapy will begin 3 weeks 12. Velcro shoe placement at | | | 3 weeks postop Oscar Eng MD 03/24/2017, 9:26 PM | | | [facility] Time Frame Activity 0-3 Weeks NWB | | | in post-op splint or walking boot 3-6 Weeks Protected weight | | | bearing in velcro shoe and crutches Wean crutches and velcro shoe as | | | tolerated. Active plantar flexion and dorsiflexion beyond neutral | | | Proprioceptive and gait retraining Discontinue crutches and boot by | | | 6th week or sooner 6-8 Weeks Increased dorsiflexion Graduated | | | resistance exercises Cardiovascular exercises as tolerated Incision | | | mobilization > 8 Weeks Continue to progress ROM, strength, | | | proprioception Retrain strength, power, endurance Increase dynamic | | | weight-bearing exercise, >12 weeks Include plyometric training | | | Sport specific retraining | | + + + ANTIBODY SCREEN (03/18/2017 8:16 AM PDT) + + + + + + | Component | Value | Ref Range | Performed | Pathologist | | | | | At | Signature | + + + + + + | Antibody | Negative | | [facility] | | | Screen | | | LABORATORY | | | | | | SERVICES, | | | | | | TRANSFUSION | | | | | | MEDICINE | | + + + + + + + + | Specimen | + + | Blood - Blood | | (substance) | + + + + + + + | Performing | Address | City/State/Zipcode | Phone Number | | Organization | | | | + + + + + | [facility] | [address] | [place] [address] | | | SERVICES, | [address] | | | | TRANSFUSION MEDICINE | | | | + + + + + ABO & RH TYPE (03/18/2017 8:16 AM PDT) + + + + + + | Component | Value | Ref Range | Performed | Pathologist | | | | | At | Signature | + + + + + + | ABO Group | A | | [facility] | | | | | | LABORATORY | | | | | | SERVICES, | | | | | | TRANSFUSION | | | | | | MEDICINE | | + + + + + + | Rh Type | Positive | | [facility] | | | | | | LABORATORY | | | | | | SERVICES, | | | | | | TRANSFUSION | | | | | | MEDICINE | | + + + + + + + + | Specimen | + + | Blood - Blood | | (substance) | + + + + + + + | Performing | Address | City/State/Zipcode | Phone Number | | Organization | | | | + + + + + | [facility] | [address] | [place] [address] | | | SERVICES, | [address] | | | | TRANSFUSION MEDICINE | | | | + + + + + CAPILLARY BLOOD GLUCOSE (NO CHG), POC (03/18/2017 7:27 AM PDT) + +---------+ + + + | Component | Value | Ref Range | Performed | Pathologist | | | | | At | Signature | + +---------+ + + + | BLOOD | 115 (H) | 70 - 99 mg/dL | [facility] - | | | GLUCOSE, | | | [facility] | | | POC | | | [facility] | | | | | | OF CARE | | | | | | TESTS | | + +---------+ + + + + + | Specimen | + + | | + + + + + + + | Performing | Address | City/State/Zipcode | Phone Number | | Organization | | | | + + + + + | [facility] | [address] | [place], [place] | | | [facility] | [address] | [address] | | | TESTS | | | | + + + + + INTRAPROCEDURE IMAGING (03/18/2017 7:11 AM PDT) + + | Specimen | + + | | + + + + + | Narrative | Performed At | + + + | See admission or procedure notes for details of any intraprocedure | | | images obtained. | | + + + CARDIOLOGY (03/18/2017 12:00 AM PDT) + + + | Narrative | Performed At | + + + | | | + + + documented in this encounter Visit Diagnoses Not on filedocumented in this encounter Administered Medications + +--------+ +-------+------+ + | Medication Order | MAR | Action | Dose | Rate | Site | | | Action | Date | | | | + +--------+ +-------+------+ + | bupivacaine-EPINEPHrine | Given | 03/18/20 | 10 mL | | Surgical | | (MARCAINE-EPINEPHRINE) 0.5 | | 17 11:41 | | | Site | | %-1:200,000 injection | | AM PDT | | | | | INTRAPROCEDURE PRN, Starting Niru | | | | | | | 03/18/17 at 1141, Until Niru | | | | | | | 03/18/17 at 1159 | | | | | | + +--------+ +-------+------+ + +---+---+ | | | +---+---+ + + + +---+---+---+ | lactated Ringers IV 10 mL/hr, | given by | 03/18/20 | | | | | intravenous, PROCEDURE | | 17 11:45 | | | | | CONTINUOUS, Starting Niru 03/18/17 | anesthes | AM PDT | | | | | at 0715, Until Niru 03/18/17 at | iology | | | | | | 1254 | | | | | | + + + +---+---+---+ + + +---+---+---+ | given by anesthesiology | 03/18/20 | | | | | | 17 10:56 | | | | | | AM PDT | | | | + + +---+---+---+ | New Bag | 03/18/20 | | | | | | 17 8:44 | | | | | | AM PDT | | | | + + +---+---+---+ +---+---+ | | | +---+---+ + +---------+ +---+---+---+ | ropivacaine 0.2% peripheral | New Bag | 03/18/20 | | | | | nerve block (Single, I-Flow pump) | | 17 12:16 | | | | | Peripheral nerve, CONTINUOUS, | | PM PDT | | | | | Starting [facility] 03/18/17 at 0945, | | | | | | | Until [facility] 03/18/17 at 1254 | | | | | | + +---------+ +---+---+---+ +---+---+ | | | +---+---+ documented in this encounter
--- OUTSIDE RECORDS SUMMARY | ~2019-05-06 | XMS | Encounter Summary ---
Demographics + + + | Address | [address] | | | [place] [address] | + + + | Home Phone | | + + + | Preferred Language | Unknown | + + + | Marital Status | Single | + + + | Samaritan Affiliation | NON | + + + | Race | White | + + + | Ethnic Group | Not or | + + + Author + + + | Author | [facility] | + + + | Organization | [facility] | + + + | Address | Unknown | + + + | Phone | Unavailable | + + + Support + + + + + | Name | Relationship | Address | Phone | + + + + + | Linden Farah | ECON | [address] | | | | | [place] | | | | | [address] | | + + + + + Care Team Providers + +------+ + | Care Cylinder Inspector Name | Role | Phone | + +------+ + | Nolan Pierre MD | PCP | | + +------+ + Encounter Details +--------+ + + + + | Date | Type | Department | Care Team | Description | +--------+ + + + + | 08/05/ | Lab | Dermatopathology | Bg Blunt V, | | | 2018 | Requisition | [address] | [facility] | | | | | Mailcode: [id number] | Clinic Dermatology | | | | | [facility] | [address] | | | | | and Healing, | [place], [place] | | | | | [facility] | [id number] | | | | | Floor [place], [place] | | | | | | [address] | | | | | | [phone] | | | +--------+ + + + [...] | + +--------+ + + + | DERM PATHOLOGY | Routin | 08/03/2017 | Neoplasm of | Results for this | | | e | | uncertain behavior | procedure are in the | | | | | of skin | results section. | + +--------+ + + + documented in this encounter Results DERM PATHOLOGY (08/03/2017) + + + + + + | Component | Value | Ref Range | Performed | Pathologist | | | | | At | Signature | + + + + + + | Clinical | 4x3mm brown asymmetrical | | [facility] | | | History | macule; r/o lentigo vs. | | DERMATOPATH | | | | Atypical nevus. | | OLOGY | | + + + + + + | Final | EPITHELIAL | | [facility] | Electronically | | Pathologic | HYPERPIGMENTATION, | | DERMATOPATH | signed by Lebron | | Diagnosis | CONSISTENT WITH | | DEXTER | Shane Fernandes MD on | | | MELANOTIC MACULE/GENITAL | | | 08/09/2017 at | | | MELANOSIS.NOTE: There | | | 4:52 PM | | | is no evidence of | | | | | | melanoma in these | | | | | | sections.KPW: dm2 | | | | + + + + + + | Gross | Received in formalin is | | [facility] | | | Description | a specimen labeled with | | DERMATOPATH | | | | the patient's name:A: | | OLOGY | | | | Specimen is labeled "R | | | | | | lateral glans penis" and | | | | | | consists of an | | | | | | irregular shave of | | | | | | papular patchy ravi-brown | | | | | | skin, 6 x 5 x 1 mm. The | | | | | | surgical margin is | | | | | | inked blue; the tissue | | | | | | is bisected, and | | | | | | entirely submitted in | | | | | | cassette A1. | | | | + + + + + + | Microscopic | There is a slightly | | [facility] | | | | thinned epithelium, with | | DERMATOPATH | | | Description | melanin along the basal | | OLOGY | | | | layer, where single | | | | | | melanocytes appear to be | | | | | | present in mostly | | | | | | expected numbers | | | | | | (highlighted with | | | | | | Melan-A). Most of the | | | | | | melanocytic nuclei are | | | | | | moderately enlarged, and | | | | | | round to oval, and most | | | | | | of the cells contain | | | | | | moderate amounts of | | | | | | amphophilic cytoplasm. | | | | + + + + + + + + | Specimen | + + | Biopsy | + + + + + + + | Performing | Address | City/State/Zipcode | Phone Number | | Organization | | | | + + + + + | [facility] | Mailcode CH5D[address] | [place] [address] | | | DERMATOPATHOLOGY | [address] | | | + + + + + documented in this encounter Visit Diagnoses + + | Diagnosis | + + | Neoplasm of uncertain behavior of skin | + + documented in this encounter
--- OUTSIDE RECORDS SUMMARY | ~2019-05-06 | XMS | Encounter Summary ---
Demographics + + + | Address | [address] | | | [place] [address] | + + + | Home Phone | | + + + | Preferred Language | Unknown | + + + | Marital Status | Single | + + + | Mandaeism Affiliation | NON | + + + | Race | White | + + + | Ethnic Group | Not or | + + + Author + + + | Author | [facility] | + + + | Organization | [facility] | + + + | Address | Unknown | + + + | Phone | Unavailable | + + + Support + + + + + | Name | Relationship | Address | Phone | + + + + + | Linden Farah | ECON | [address] | | | | | [place] | | | | | [address] | | + + + + + Care Team Providers + +------+ + | Care Program Therapist Name | Role | Phone | + [...] + + + | Closed | | Radiology | Diagnoses | [place]erson | Jim Mri | | | | | S/P | Gage Antonio, | [facility] [address] | | | | | Achilles | PA-C [address] | | | | | tendon | [address] [place] [address] | Mailcode: | | | | | repair | [facility] | [facility] | | | | | Procedures | Rd | for Health | | | | | MRI ANKLE RT | [place], [place] | and Healing, | | | | | WO CONTRAST | [address] | [address], | | | | | - [place] | Phone: | 3rd Floor | | | | | [place] [facility] | [phone] | [place], [place] | | | | | LOWER EXTREM | Fax: | [phone] | | | | | JT, W/O | [phone] | Phone: | | | | | CONTRAST | | [phone] | | | | | | | Fax: | | | | | | | [phone] | +--------+--------+ + + + + Encounter Details +--------+ + + + + | Date | Type | Department | Care Team | Description | +--------+ + + + + | 05/24/ | MyChart | Orthopaedics at | Oscar Eng, | RE: Lola Farah | | 2017 | Encounter | [facility] [address] | MD [address] | | | | | Ave Mailcode: CH12A | [facility] [place] | | | | | [facility] | [address] | | | | | and [facility], | [phone] | | | | | [facility] [address] | | | | | | Floor [place], [place] | | | | | | [address] | | | | | | [phone] | | | +--------+ + + + [...] Not on filedocumented as of this encounter Results MRI ANKLE RT WO CONTRAST - [place] (06/11/2017 8:53 AM PST) + + | Specimen | + + | | + + + + + | Narrative | Performed At | + + + | EXAM: MR ANKLE RT WO CONTRAST WO - [place] HISTORY: Achilles | [facility] | | rupture status post repair on March 14, 2017. COMPARISON: | RADIOLOGY VOICE | | Radiograph right ankle on 02/26/17. TECHNIQUE: The following MR | RECOGNITION | | pulse sequences were performed through the ankle: 1. Coronal T1- | | | and fat-suppressed intermediate TE-weighted FSE. 2. Axial PD- and | | | fat-suppressed intermediate TE-weighted FSE. 3. Sagittal STIR. | | | FINDINGS: OSSEOUS/ARTICULAR: Bone marrow signal is normal. No | | | joint effusion. The talar dome is intact. No evidence of osteonecrosis | | | or osteochondral abnormality. Remote avulsion type fracture about the | | | lateral malleolus. Enthesophyte formation is present about the medial | | | gutter. There is no bone marrow edema-like signal abnormality about | | | the ankle. LIGAMENTS: The distal tibiofibular syndesmotic | | | ligaments are intact. Remote full-thickness rupture of the anterior | | | talofibular and calcaneofibular ligaments. The posterior talofibular | | | ligament is intact. There is thickening of the proximal | | | superficial fibers of the deltoid ligament complex compatible to | | | sequela of remote partial injury. The deep deltoid fibers are intact. | | | The spring ligament complex is intact. TENDONS: There is diffuse | | | heterogeneous T2 hypointense thickening throughout the distribution of | | | the Achilles tendon without identification of a focal fluid filled | | | defect. No distention of the retro-Achilles or retrocalcaneal bursae. | | | The peroneal tendons are intact with a small amount of fluid at | | | the retromalleolar groove report portion which is favored to be | | | physiologic. The flexor and extensor tendons are within normal limits | | | without evidence of tenosynovitis. MISCELLANEOUS: The plantar | | | fascia is normal. There is feathery T2 hyperintense signal | | | abnormality within the muscle bellies of the flexor hallucis longus | | | and posterior tibialis without identification of an organized | | | drainable fluid collection. There is no significant fatty | | | infiltration. This finding is favored to be postoperative in nature | | | with a denervation edema considered less likely. There is | | | subcutaneous soft tissue edema about the ankle. IMPRESSION: | | | Postsurgical changes of Achilles tendon repair without convincing | | | evidence of retearing. Remote full-thickness ruptures of the | | | anterior talofibular and calcaneofibular ligaments. Remote partial | | | injury of the superficial fibers of the deltoid ligament complex. | | | I have personally reviewed the images and, if necessary, edited | | | the report. I agree with the report as now presented. | | + + + + + | Procedure Note | + + | Service Account, Radiant Res In Interface - 06/11/2017 1:00 PM PST EXAM: MR ANKLE RT | | WO CONTRAST WO - [place] HISTORY: Achilles rupture status post repair on March 14, | | 2016. COMPARISON: Radiograph right ankle on 02/26/17.TECHNIQUE: The following MR pulse | | sequences were performed through the ankle:1. Coronal T1- and fat-suppressed | | intermediate TE-weighted FSE.2. Axial PD- and fat-suppressed intermediate TE-weighted | | FSE.3. Sagittal STIR.FINDINGS:OSSEOUS/ARTICULAR: Bone marrow signal is normal. No joint | | effusion. The talar dome is intact. No evidence of osteonecrosis or osteochondral | | abnormality. Remote avulsion type fracture about the lateral malleolus. Enthesophyte | | formation is present about the medial gutter. There is no bone marrow edema-like signal | | abnormality about the ankle.LIGAMENTS: The distal tibiofibular syndesmotic ligaments are | | intact. Remote full-thickness rupture of the anterior talofibular and calcaneofibular | | ligaments. The posterior talofibular ligament is intact.There is thickening of the | | proximal superficial fibers of the deltoid ligament complex compatible to sequela of | | remote partial injury. The deep deltoid fibers are intact. The spring ligament complex | | is intact.TENDONS: There is diffuse heterogeneous T2 hypointense thickening throughout | | the distribution of the Achilles tendon without identification of a focal fluid filled | | defect. No distention of the retro-Achilles or retrocalcaneal bursae.The peroneal | | tendons are intact with a small amount of fluid at the retromalleolar groove report | | portion which is favored to be physiologic. The flexor and extensor tendons are within | | normal limits without evidence of tenosynovitis.MISCELLANEOUS: The plantar fascia is | | normal. There is feathery T2 hyperintense signal abnormality within the muscle bellies | | of the flexor hallucis longus and posterior tibialis without identification of an | | organized drainable fluid collection. There is no significant fatty infiltration. This | | finding is favored to be postoperative in nature with a denervation edema considered | | less likely.There is subcutaneous soft tissue edema about the | | ankle.IMPRESSION:Postsurgical changes of Achilles tendon repair without convincing | | evidence of retearing.Remote full-thickness ruptures of the anterior talofibular and | | calcaneofibular ligaments.Remote partial injury of the superficial fibers of the deltoid | | ligament complex.I have personally reviewed the images and, if necessary, edited the | | report. I agree with the report as now presented. | |IMPRESSION: | | | |Postsurgical changes of Achilles tendon repair without convincing evidence of retearing. | | | |Remote full-thickness ruptures of the anterior talofibular and calcaneofibular ligaments. | | | |Remote partial injury of the superficial fibers of the deltoid ligament complex. | | | | | |I have personally reviewed the images and, if necessary, edited the report. I agree with t he report as now presented. | + + + +---------+ + + | Performing | Address | City[facility]State[facility] | Phone Number | | Organization | | | | + +---------+ + + | [facility] | | | | | VOICE RECOGNITION | | | | + +---------+ + + documented in this encounter Visit Diagnoses + + | Diagnosis | + + | S/P Achilles tendon repair - Primary Other postprocedural status | + + documented in this encounter"
--- OUTSIDE RECORDS SUMMARY | ~2019-05-06 | XMS | Encounter Summary ---
Demographics + + + | Address | [address] | | | [place] [address] | + + + | Home Phone | | + + + | Preferred Language | Unknown | + + + | Marital Status | Single | + + + | Oriental Orthodox Affiliation | NON | + + + | Race | White | + + + | Ethnic Group | Not or | + + + Author + + + | Author | [facility] | + + + | Organization | [facility] | + + + | Address | Unknown | + + + | Phone | Unavailable | + + + Support + + + + + | Name | Relationship | Address | Phone | + + + + + | Linden Farah | ECON | [address] | | | | | [place] | | | | | [address] | | + + + + + Care Team Providers + +------+ + | Care Sales Operations Coordinator Name | Role | Phone | + +------+ + | Nolan Pierre MD | PCP | | + +------+ + Reason for Visit + + + | Reason | Comments | + + + | Care Coordination | | + + + Encounter Details +--------+ + + + + | Date | Type | Department | Care Team | Description | +--------+ + + + + | 09/09/ | MyChart | [facility] | Michelle Shields, | RE: Lola Farah | | 2018 | Encounter | [facility] at | MD [address] | | | | | [facility] | Ave [facility] [place] | | | | | [address] | [address] | | | | | Mailcode: [id number] | [phone] | | | | | [facility] | | | | | | and [place], | | | | | | | | | | | | Floor [place], [place] | | | | | | [address] | | | | | | [phone] | | | +--------+ + + + [...]
--- OUTSIDE RECORDS SUMMARY | ~2019-05-06 | XMS | Encounter Summary ---
Demographics + + + | Address | [address] | | | [place] [address] | + + + | Home Phone | | + + + | Preferred Language | Unknown | + + + | Marital Status | Single | + + + | Hoahaoism Affiliation | NON | + + + [...] + | Linden Farah | ECON | [address] | | | | | [place] | | | | | [address] | | + + + + + Care Team Providers + +------+ + | Care Court Stenographer Name | Role | Phone | + +------+ + | Nolan Pierre MD | PCP | | + +------+ + Reason for Referral Consultation (Routine) +--------+---------+ + + + + | Status | Reason | Specialty | Diagnoses / | Referred By | Referred To | | | | | Procedures | Contact | Contact | +--------+---------+ + + + + | Closed | Other | Pain | Diagnoses | Cornelius | Ed Dow | | | | Management | Right | Michelle Barger, | Mariela, ANNE[address]IE [address] | | | | | sciatic | [address] | | | | | nerve pain | [address] | [place], [place] | | | | | Procedures | [place], [place] | [address] | | | | | CONSULT TO | [address] | Phone: | | | | | PAIN | Phone: | [phone] | | | | | MANAGEMENT | [phone] | Fax: | | | | | | Fax: | [phone] | | | | | | [phone] | | +--------+---------+ + + + + Consultation (Routine) +--------+--------+ + + + + | Status | Reason | Specialty | Diagnoses / | Referred By | Referred To | | | | | Procedures | Contact | Contact | +--------+--------+ + + + + | Closed | | Pain | Diagnoses | Cornelius, | | | | | Management | Right | Michelle Barger, | | | | | | sciatic | MD [address] | | | | | | nerve pain | [address] | | | | | | Procedures | [place], [place] | | | | | | CONSULT TO | [address] | | | | | | PAIN | Phone: | | | | | | MANAGEMENT | [phone] | | | | | | | Fax: | | | | | | | [phone] | | +--------+--------+ + + + + Reason for Visit + + + | Reason | Comments | + + + | Achilles Injury | | + + + Consultation (Urgent) +--------+--------+ + + + + | Status | Reason | Specialty | Diagnoses / | Referred By | Referred To | | | | | Procedures | Contact | Contact | +--------+--------+ + + + + | Closed | | Pain | Diagnoses | Velasquez, | Cornelius, | | | | Management | Numbness | Oscar Brock MD | Michelle Barger, | | | | | and tingling | [address] | | | | | of foot | [address] | [address] | | | | | | [place], [place] | [place], [place] | | | | | | [address] | [address] | | | | | | Phone: | Phone: | | | | | | [phone] | [phone] | | | | | | Fax: | Fax: | | | | | | [phone] | [phone] | +--------+--------+ + + + + Encounter Details +--------+---------+ + + + | Date | Type | Department | Care Team | Description | +--------+---------+ + + + | 06/24/ | Office | [facility] | Michelle Shields, | Right sciatic nerve | | 2017 | Visit | [facility] at | MD [address] | pain (Primary Dx) | | | | [facility] | Ave [facility] [place] | | | | | [address] | [address] | | | | | Mailcode: [id number] | [phone] | | | | | [facility] | | | | | | and Healing, | | | | | | | | | | | | [place], [place] | | | | | | [address] | | | | | | [phone] | | | +--------+---------+ + + + [...] + + + | Blood Pressure | 153/83 | 06/24/2017 6:56 AM | | | | | PST | | + + + + + | Pulse | 85 | 06/24/2017 6:56 AM | | | | | PST | | + + + + + | Temperature | - | - | | + + + + + | Respiratory Rate | 16 | 06/24/2017 6:56 AM | | | | | PST | | + + + + + | Oxygen Saturation | 96% | 06/24/2017 6:56 AM | | | | | PST | | + + + + + | Inhaled Oxygen | - | - | | | Concentration | | | | + + + + + | Weight | 90.7 kg (200 lb) | 06/24/2017 6:56 AM | | | | | PST | | + + + + + | Height | 177.8 cm (5' 10") | 06/24/2017 6:56 AM | | | | | PST | | + + + + + | Body Mass Index | 28.7 | 06/24/2017 6:56 AM | | | | | PST | | + + + + + documented in this encounter Patient Instructions Patient Instructions Michelle Shields MD - 06/24/2017 8:07 AM PST1.) We will start nort riptyline at 10-20 mg per night. 2.) We could also start Cymbalta or duloxetine at 20 mg per day. 3.) We do want to see the results of the nerve studies. 4.) We will trial some acupuncture. 5.) We will keep the gabapentin going. 6.) Shruti Mesa MD [facility] Ed Dow LAC [facility] [address] Appointments are available Wednesday thru Wednesday: 8:30 am - 8 pm, Wednesday 9 am - 4 pm and Wednesday: 9 am - 3 pm To make an appointment, call [phone]. Sliding scale is $15 - $35 per treatment.* You d ecide what you can afford. [facility] Accupuncture Neighborhoods: [place] [address] www.[place] Sliding Scale Pins and [place] [facility] [address], [facility] Sliding Scale [facility] Medicine Contact Us [address] [place] [address] : : Fax Group and individual accupuncture, massage [facility] Address[facility] [address] [place] [address] [facility] Berkley Peralta LAc, [facility] [address] [place] [address] $15-40, sliding scale Also provide herbal treatment and Qigong nortriptyline Pronunciation: nor TRIP ti ruben Brand: Bonilla What is the most important information I should know about nortriptyline? You should not use nortriptyline if you have recently had a heart attack, or if you are all ergic to certain medicines. Do not use this medicine if you have used an MAO inhibitor in the past 14 days, such as iso carboxazid, linezolid, methylene blue injection, phenelzine, rasagiline, selegiline, or agee ylcypromine. Some young people have thoughts about suicide when first taking an antidepressant. Stay mick rt to changes in your mood or symptoms. Report any new or worsening symptoms to your doctor. What is nortriptyline? Nortriptyline is a tricyclic antidepressant. Nortriptyline affects chemicals in the brain t hat may be unbalanced in people with depression. Nortriptyline is used to treat symptoms of depression. Nortriptyline may also be used for purposes not listed in this medication guide. What should I discuss with my healthcare provider before taking nortriptyline? You should not use nortriptyline if you are allergic to it, or if: you have recently had a heart attack; you are allergic to similar antidepressants (amitriptyline, amoxapine, clomipramine, placido ipramine, doxepin, imipramine, protriptyline, trimipramine); or you are allergic to certain seizure medications (carbamazepine, eslicarbazepine, oxcarba zepine, rufinamide). Do not use nortriptyline if you have used an MAO inhibitor in the past 14 days. A dangerous drug interaction could occur. MAO inhibitors include isocarboxazid, linezolid, methylene bl ue injection, phenelzine, rasagiline, selegiline, tranylcypromine, and others. To make sure nortriptyline is safe for you, tell your doctor if you have: heart disease, or a history of heart attack, stroke, or seizures; bipolar disorder (manic-depression); schizophrenia or other mental illness; liver disease; a thyroid disorder; diabetes (nortriptyline may raise or lower blood sugar); narrow-angle glaucoma; or problems with urination. Some young people have thoughts about suicide when first taking an antidepressant. Your doc tor will need to check your progress at regular visits while you are using nortriptyline. Yo ur family or other caregivers should also be alert to changes in your mood or symptoms. It is not known whether nortriptyline will harm an unborn baby. Tell your doctor if you are or plan to become while using this medication. It is not known whether nortriptyline passes into breast milk or if it could harm a nursing baby. Tell your doctor if you are breast-feeding a baby. Do not give this medicine to a child without medical advice. Nortriptyline is not approved for use in children. How should I take nortriptyline? Follow all directions on your prescription label. Your doctor may occasionally change your dose to make sure you get the best results. Do not take this medicine in larger or smaller a genny or for longer than recommended. If you need surgery, tell the surgeon ahead of time that you are using nortriptyline. You m ay need to stop using the medicine for a short time. Do not stop using nortriptyline suddenly, or you could have unpleasant withdrawal symptoms. Ask your doctor how to safely stop using nortriptyline. It may take a few weeks before your symptoms improve. Keep using the medication as directed and tell your doctor if your symptoms do not improve. Store at room temperature away from moisture and heat. What happens if I miss a dose? Take the missed dose as soon as you remember. Skip the missed dose if it is almost time for your next scheduled dose. Do not take extra medicine to make up the missed dose. What happens if I overdose? Seek emergency medical attention or call the Poison Help line at . An overdos e of nortriptyline can be fatal. What should I avoid while taking nortriptyline? Do not drink alcohol. Nortriptyline can increase the effects of alcohol, which could be joel gerous. This medication may impair your thinking or reactions. Be careful if you drive or do anythi ng that requires you to be alert. Avoid exposure to sunlight or tanning beds. Nortriptyline can make you sunburn more easily. Wear protective clothing and use sunscreen (SPF 30 or higher) when you are outdoors. What are the possible side effects of nortriptyline? Get emergency medical help if you have signs of an allergic reaction: hives; difficult rebecca thing; swelling of your face, lips, tongue, or throat. Report any new or worsening symptoms to your doctor, such as: mood or behavior changes, anx iety, panic attacks, trouble sleeping, or if you feel impulsive, irritable, agitated, hostil e, aggressive, restless, hyperactive (mentally or physically), more depressed, or have thoug hts about suicide or hurting yourself. Call your doctor at once if you have: blurred vision, tunnel vision, eye pain or swelling, or seeing halos around lights; restless muscle movements in your eyes, tongue, jaw, or neck; a light-headed feeling, like you might pass out; seizure (convulsions); new or worsening chest pain, pounding heartbeats or fluttering in your chest; sudden numbness or weakness, problems with vision, speech, or balance; fever, sore throat, easy bruising, unusual bleeding; jaundice (yellowing of the skin or eyes); painful or difficult urination; or high levels of serotonin in the body --agitation, hallucinations, fever, fast heart rate , overactive reflexes, nausea, vomiting, diarrhea, loss of coordination, fainting. Older adults may be more likely to have side effects from this medication. Common side effects may include: nausea, vomiting, loss of appetite; anxiety, sleep problems (insomnia); dry mouth, unusual taste; little or no urinating; constipation; vision changes; breast swelling (in men or women); or decreased sex drive, impotence, or difficulty having an orgasm. This is not a complete list of side effects and others may occur. Call your doctor for [facility] advice about side effects. You may report side effects to FDA at 8-194-OUA-2206. What other drugs will affect nortriptyline? Taking this medicine with other drugs that make you sleepy can worsen this effect. Ask your doctor before taking nortriptyline with a sleeping pill, narcotic pain medicine, muscle rel axer, or medicine for anxiety, depression, or seizures. Before taking nortriptyline, tell your doctor if you have used an "SSRI" antidepressant in the past 5 weeks, such as citalopram, escitalopram, fluoxetine, fluvoxamine, paroxetine, or sertraline. You must wait at least 5 weeks after stopping fluoxetine (Prozac) before you can take nortriptyline. Many drugs can interact with nortriptyline, which may cause unwanted or dangerous effects. This includes prescription and ntmb-ilj-trmvsyk medicines, vitamins, and herbal products. No t all possible interactions are listed in this medication guide. Tell your doctor about all medicines you use, and those you start or stop using during your treatment with nortriptyli ne. Give a list of all your medicines to any healthcare provider who treats you. Where can I get more information? Your pharmacist can provide more information about nortriptyline. Remember, keep this and all other medicines out of the reach of children, never share your medicines with others, and use this medication only for the indication prescribed. Every effort has been made to ensure that the information provided by [employer]. ( '[employer]') is accurate, up-to-date, and complete, but no guarantee is made to that effect. Dr jaqueline information contained herein may be time sensitive. [employer] information has been compiled for use by healthcare practitioners and consumers in the [place] and therefore [employer] does not warrant that uses outside of the [place] are appropriate, unless specifically indicated otherwise. [employer] drug information does not endorse drugs, diagnose patients or recommend therapy. [employer] drug information is an informational resource designed to gigi t licensed healthcare practitioners in caring for their patients and/or to serve consumers v iewing this service as a supplement to, and not a substitute for, the expertise, skill, know ledge and judgment of healthcare practitioners. The absence of a warning for a given drug or drug combination in no way should be construed to indicate that the drug or drug combinatio n is safe, effective or appropriate for any given patient. [employer] does not assume any respon sibility for any aspect of healthcare administered with the aid of information [employer] provid es. The information contained herein is not intended to cover all possible uses, directions, precautions, warnings, drug interactions, allergic reactions, or adverse effects. If you barreto ve questions about the drugs you are taking, check with your doctor, nurse or pharmacist. Copyright 5187-3358 [employer]. Version: .. Revision date: 01/15/2016. Care instructions adapted under license by [employer]. If you have questions about a medical condition or this instruction, always ask your healthcare profchin peters. [employer] disclaims any warranty or liability for your use of this info rmation. duloxetine Pronunciation: du LOX e teen Brand: Hannah Bae What is the most important information I should know about duloxetine? Do not take duloxetine within 5 days before or 14 days after you have used an MAO inhibitor , such as isocarboxazid, linezolid, methylene blue injection, phenelzine, rasagiline, selegi line, or tranylcypromine. Some young people have thoughts about suicide when first taking an antidepressant. Stay mick rt to changes in your mood or symptoms. Report any new or worsening symptoms to your doctor. Do not stop using duloxetine without first talking to your doctor. What is duloxetine? Duloxetine is a selective serotonin and norepinephrine reuptake inhibitor antidepressant (S SNRI). Duloxetine affects chemicals in the brain that may be unbalanced in people with depre ssion. Duloxetine is used to treat major depressive disorder in adults. Duloxetine is also used to treat general anxiety disorder in adults and children who are at least 7 years old. Duloxetine is also used in adults to treat fibromyalgia (a chronic pain disorder), or chron ic muscle or joint pain (such as low back pain and osteoarthritis pain). Duloxetine is also used to treat pain caused by nerve damage in adults with diabetes (diabe tic neuropathy). Duloxetine may also be used for purposes not listed in this medication guide. What should I discuss with my healthcare provider before taking duloxetine? You should not use duloxetine if you are allergic to it. Do not take duloxetine within 5 days before or 14 days after you have used an MAO inhibitor , such as isocarboxazid, linezolid, methylene blue injection, phenelzine, rasagiline, selegi line, or tranylcypromine. A dangerous drug interaction could occur. Some medicines can interact with duloxetine and cause a serious condition called serotonin syndrome. Be sure your doctor knows if you also take stimulant medicine, opioid medicine, he rbal products, or medicine for depression, mental illness, Parkinson's disease, migraine hea daches, serious infections, or prevention of nausea and vomiting. Ask your doctor before christiana ing any changes in how or when you take your medications. To make sure duloxetine is safe for you, tell your doctor if you have ever had: liver or kidney disease; seizures or epilepsy; a bleeding or blood clotting disorder; high blood pressure; narrow-angle glaucoma; bipolar disorder (manic depression); or drug addiction or suicidal thoughts. Some young people have thoughts about suicide when first taking an antidepressant. Your doc tor will need to check your progress at regular visits while you are using duloxetine. Your family or other caregivers should also be alert to changes in your mood or symptoms. It is not known whether duloxetine will harm an unborn baby. However, duloxetine may cause problems in a if you take the medicine during the third trimester of . Tell your doctor if you are or plan to become while using this medicine. If you are , your name may be listed on a registry. This is to track the outcome of the and to evaluate any effects of duloxetine on the baby. Duloxetine can pass into breast milk, but effects on the nursing baby are not known. Tell y our doctor if you are breast-feeding. Duloxetine is not approved for use by anyone younger than 18 years old. How should I take duloxetine? Follow all directions on your prescription label. Do not take this medicine in larger or sm aller amounts or for longer than recommended. You may take duloxetine with or without food. Do not crush, chew, break, or open an extended-release capsule. Swallow it whole. It may take 1 to 4 weeks before your symptoms improve. Keep using the medication as directe d. Do not stop using duloxetine without first talking to your doctor. You may have unpleasa nt side effects if you stop taking this medicine suddenly. Store at room temperature away from moisture and heat. What happens if I miss a dose? Take the missed dose as soon as you remember. Skip the missed dose if it is almost time for your next scheduled dose. Do not take extra medicine to make up the missed dose. What happens if I overdose? Seek emergency medical attention or call the Poison Help line at . What should I avoid while taking duloxetine? Avoid drinking alcohol. It may increase your risk of liver damage. Ask your doctor before taking a nonsteroidal anti-inflammatory drug (NSAID) for pain, arthr itis, fever, or swelling. This includes aspirin, ibuprofen (Advil, Motrin), naproxen (Aleve) , celecoxib (Celebrex), diclofenac, indomethacin, meloxicam, and others. Using an NSAID with duloxetine may cause you to bruise or bleed easily. Duloxetine may impair your thinking or reactions. Be careful if you drive or do anything th at requires you to be alert. Avoid getting up too fast from a sitting or lying position, or you may feel dizzy. Get up slowly and steady yourself to prevent a fall. Severe dizziness or fainting can cause falls, accidents, or severe injuries. What are the possible side effects of duloxetine? Get emergency medical help if you have signs of an allergic reaction: skin rash or hives; d ifficulty breathing; swelling of your face, lips, tongue, or throat. Report any new or worsening symptoms to your doctor, such as: mood or behavior changes, anx iety, panic attacks, trouble sleeping, or if you feel impulsive, irritable, agitated, hostil e, aggressive, restless, hyperactive (mentally or physically), more depressed, or have thoug hts about suicide or hurting yourself. Call your doctor at once if you have: a light-headed feeling, like you might pass out; vision changes, eye pain or swelling, eye redness; easy bruising, unusual bleeding; painful or difficult urination; a seizure; a manic episode --racing thoughts, increased energy, reckless behavior, feeling extremel y happy or irritable, talking more than usual, severe problems with sleep; liver problems --right-sided upper stomach pain, itching, dark urine, jaundice (yellowin g of the skin or eyes); low levels of sodium in the body --headache, confusion, slurred speech, severe weakness, vomiting, loss of coordination, feeling unsteady; or severe skin reaction --fever, sore throat, swelling in your face or tongue, burning in y our eyes, skin pain, followed by a red or purple skin rash that spreads (especially in the f morris or upper body) and causes blistering and peeling. Seek medical attention right away if you have symptoms of serotonin syndrome, such as: agit ation, hallucinations, fever, sweating, shivering, fast heart rate, muscle stiffness, twitch ing, loss of coordination, nausea, vomiting, or diarrhea. Older adults may be more sensitive to the side effects of this medicine. Common side effects may include: dry mouth; drowsiness, dizziness; tired feeling; nausea, constipation, loss of appetite, weight loss; or increased sweating. This is not a complete list of side effects and others may occur. Call your doctor for [facility] advice about side effects. You may report side effects to FDA at 8-456-ADT-3705. What other drugs will affect duloxetine? Many drugs can interact with duloxetine. Not all possible interactions are listed here. Tel l your doctor about all your current medicines and any you start or stop using, especially: any other antidepressant; cimetidine; [place]'s wort; theophylline; tryptophan (sometimes called L-tryptophan); an amphetamine --Adderall, Focalin, Vyvanse, Ritalin, Concerta, Strattera, and others; an antibiotic --ciprofloxacin, enoxacin; a blood thinner --warfarin, Coumadin, Jantoven; heart rhythm medication --flecainide, propafenone, quinidine, and others; opioid medicine --fentanyl, tramadol; medicine to treat mood disorders, thought disorders, or mental illness --buspirone, lith ium, thioridazine, and many others; or migraine headache medicine --sumatriptan, rizatriptan, zolmitriptan, and others. This list is not complete and many other drugs can interact with duloxetine. This includes prescription and awwn-zuw-wngfhfi medicines, vitamins, and herbal products. Give a list of a ll your medicines to any healthcare provider who treats you. Where can I get more information? Your pharmacist can provide more information about duloxetine. Remember, keep this and all other medicines out of the reach of children, never share your medicines with others, and use this medication only for the indication prescribed. Every effort has been made to ensure that the information provided by [employer]. ( [employer]') is accurate, up-to-date, and complete, but no guarantee is made to that effect. Dr jaqueline information contained herein may be time sensitive. [employer] information has been compiled for use by healthcare practitioners and consumers in the [place] and therefore [employer] does not warrant that uses outside of the [place] are appropriate, unless specifically indicated otherwise. [employer] drug information does not endorse drugs, diagnose patients or recommend therapy. [employer] drug information is an informational resource designed to gigi t licensed healthcare practitioners in caring for their patients and/or to serve consumers v iewing this service as a supplement to, and not a substitute for, the expertise, skill, know ledge and judgment of healthcare practitioners. The absence of a warning for a given drug or drug combination in no way should be construed to indicate that the drug or drug combinatio n is safe, effective or appropriate for any given patient. [employer] does not assume any respon sibility for any aspect of healthcare administered with the aid of information Asha meeks. The information contained herein is not intended to cover all possible uses, directions, precautions, warnings, drug interactions, allergic reactions, or adverse effects. If you barreto ve questions about the drugs you are taking, check with your doctor, nurse or pharmacist. Copyright [id number] [employer] Version: 11.. Revision date: 01/04/2017. Care instructions adapted under license by [facility]. If you have questions about a medical condition or this instruction, always ask your healthcare ale peters. [employer] disclaims any warranty or liability for your use of this info rmation. documented in this encounter Progress Notes Michelle Shields MD - 06/24/2017 7:30 AM PSTFormatting of this note might be different f rom the original. Date: 07/03/2017 was referred for pain management consultation by Oscar Eng MD [address] [place] [address] Reason for consult: Sciatic-distribution pain Chief Complaint Patient presents with Achilles Injury History of Present Illness: Lola Farah is a 61 year old male with a several month hist ory of pain located in the foot (initally leg, now just foot). His pain is made worse by c limbing stairs, exercise, lying down, sitting and walking. His pain is improved by medicatio ns and Lola does think that the gabapentin is helpful.. As soon as the sciatic nerve catheter block wore off, the burning, tingling would occur. D uring ht day the pain was less severe. By 5 p.m. Every afternoon, the ankle and foot was r eally tingling. Lola then started on gabapentin at 300 mg a day. This was not effective. Lola is now on 3600 mg gabapentin and this has helped the tingling. Overall, Lola is seeing improvement in his pain. Surgery was in February and gabapentin was started about a month ago. It is the bottom of the foot that is bothersome. In the beginning it was from the midfoot to the toes but now the heel is bothersome as well. The heel started bothering Lola a few weeks ago. Lola doesn't know if the heel is from the "problem" or from more excessive ph ysical therapy. Overall Lola is better although sheets can still be bothersome to his foot. Lola reports that her urinates a lot of on his blood medications. Lola trialed lidocai ne ointment on his foot and it wasn't beneficial. 's treatment for this pain complaint has included ibuprofen and gabapentin. His nonmedication treatment has included several sessions of physical therapy. The most effective therapy for Lola is likely the oxycodone and the gabapentin. lives in a single family home in [facility]. He is living now in [place] , while recovering from his surgery, with his brother.. He is no longer worker but may go ba after his surgical recovery is completed. 's recreational activities include: none at this time.. As a result of his pain, notes multiple changes in his life, including being surprised how long his recovery will take. 's goal is to continue to get healing in his right leg. The Brief Pain Inventory is scanned into the media section of [employer]. Past Medical History: Diagnosis Date Numbness and tingling of foot Past Surgical History Procedure Laterality Date Shoulder surgery Appendectomy Achilles tendon surgery Right 03/18/2017 Knee surgery Family History Problem Relation Heart Disease Mother Emphysema Father History Alcohol Use Yes History Drug Use No Social History Social History Narrative No narrative on file No Known Allergies Current Medication List Name Sig ASPIRIN 325 MG TABLET Take 325 mg by mouth once daily. GABAPENTIN 600 MG TABLET Take 2 tablets by mouth three times daily. LOSARTAN ORAL Take by mouth. LOSARTAN 100 MG-HYDROCHLOROTHIAZIDE 25 MG TABLET Take 100 mg by mouth once daily. NORTRIPTYLINE 10 MG CAPSULE Take 1 capsule by mouth once daily at bedtime. Indications: Vashti ropathic OXYCODONE 5 MG TABLET Take 1 tablet by mouth once daily. Indications: Neuropathic pain OXYCODONE 5 MG TABLET Take 1 tablet by mouth once daily as needed (for pain.). POTASSIUM CHLORIDE ER 20 MEQ TABLET,EXTENDED RELEASE(PART/CRYST) Take 20 mEq by mouth once daily. SIMVASTATIN 40 MG TABLET Take 40 mg by mouth once daily. VERAPAMIL ER (SR) 240 MG TABLET,EXTENDED RELEASE Take 240 mg by mouth once. Radiology/Diagnostic Tests: There were no new imaging tests for this visit. Most Recent Labs: BMP Lab Results Component Value Date GLU 115 03/18/2017 CMP Lab Results Component Value Date GLU 115 03/18/2017 ROS Review of systems is negative other than the history of present illness. BP 153/83 | Pulse 85 | RR 16 | Ht 1.778 m (5' 10") | Wt 90.7 kg (200 lb) | SpO2 96% | BMI 2 8.7 kg/(m^2) Physical Exam Neurologic Exam Ortho Exam General: Awake and alert, Sitting in the examination room. Lower extremities: 5/5 bilaterally in the lower extremities Neurological: Cranial nerves intact. Psychological: Nonfocal Head and neck: Within normal limits. Sensory examination: Intact with some possibly altered sensation in the distribution of the sciatic nerve. Abdomen: Flat, nondistended Lymphatics: Deferred. Cervical Exam: Deferred Gait: Intact. Patient Active Problem List Diagnosis Cervical radiculopathy Degenerative disc disease, cervical Foraminal stenosis of cervical region Glossitis Impaired mobility and ADLs Pain in right hand Weakness of right hand Visit Diagnoses: M54.31 Right sciatic nerve pain For today's evaluation, I have included my personal review of Mr. Farah's history and ph ysical examination. I also used the following components in my medical decision making: Laboratory studies reviewed. Radiology Reports reviewed. Impression: Mr. Lola Farah is a very pleasant male patient who is here for his postoperative pain. On March 18, 2017, Lola had a right Achilles tendon repair. Since that time, and si nce the removal of the sciatic continuous peripheral nerve block, Lola has sciatic neuropa thic/neuritis pain. The good sign if that the pain is improving and I suspect Lola may ge t full recovery. I have encouraged the continued use of higher dose gabapentin as well as a dding in nortriptyline at night. One of the things we discussed was having relief at night because the pain awakens him a ni ght. Lola is still only getting a few hours of sleep at night and so we feel like the nor triptyline may help with sleep. Duloxetine (Cymbalta) can always be added at a later date. We will initiate some acupunctu re either here at [facility] or closer to Lola's home in [facility]. We also encouraged obt aining the EMG/NCV for further information. Recommendation/Plan: 1.) We will start nortriptyline at 10-20 mg per night. 2.) We could also start Cymbalta or duloxetine at 20 mg per day. 3.) We do want to see the results of the nerve studies. 4.) We will trial some acupuncture. 5.) We will keep the gabapentin going. Michelle Shields MD [facility] documented in this encounter Plan of Treatment Not on filedocumented as of this encounter Visit Diagnoses + + | Diagnosis | + + | Right sciatic nerve pain - Primary | + + documented in this encounter
--- OUTSIDE RECORDS SUMMARY | ~2019-05-06 | XMS | Encounter Summary ---
Demographics + + + | Address | [address] | | | [place] [address] | + + + | Home Phone | | + + + | Preferred Language | Unknown | + + + | Marital Status | Single | + + + | Islam Affiliation | NON | + + + | Race | White | + + + | Ethnic Group | Not or | + + + Author + + + | Author | [facility] | + + + | Organization | [facility] | + + + | Address | Unknown | + + + | Phone | Unavailable | + + + Support + + + + + | Name | Relationship | Address | Phone | + + + + + | Linden Farah | ECON | [address] | | | | | [place] | | | | | [address] | | + + + + + Care Team Providers + +------+ + | Care Supervisor Ski Production Name | Role | Phone | + [...] | | | Kimberlee Mailcode: CH12A | [place], [place] | | | | | [facility] | [address] | | | | | and Healing, | [phone] | | | | | [facility] | | | | | | Floor [place], [place] | | | | | | [address] | | | | | | [phone] | | | +--------+ + + + [...]
--- OUTSIDE RECORDS SUMMARY | ~2019-05-06 | XMS | Encounter Summary ---
Demographics + + + | Address | [address] | | | [place] [address] | + + + | Home Phone [...] Author + + + | Author | [facility] | + + + | Organization | [facility] | + + + | Address | Unknown | + + + | Phone | Unavailable | + + + Support + + + + + | Name | Relationship | Address | Phone | + + + + + | Linden Farah | ECON | [address] | | | | | [place] | | | | | [address] | | + + + + + Care Team Providers + +------+ + | Care Supervisor Policy Change Clerks Name | Role | Phone | + [...] | | | | | repair | [address] | [facility] | | | | | Procedures | Rd | for Health | | | | | MRI ANKLE RT | [place], [place] | and Healing, | | | | | WO CONTRAST | [address] | [address], | | | | | - [place] | Phone: | 3rd Floor | | | | | CO MRI | [phone] | [place], [place] | | | | | LOWER EXTREM | Fax: | [phone] | | | | | JT, W/O | [phone] | Phone: | | | | | CONTRAST | | [phone] | | | | | | | Fax: | | | | | | | [phone] | +--------+--------+ + + + + Reason for Visit Diagnostic Testing (Routine) +--------+--------+ + + + + | Status | Reason | Specialty | Diagnoses / | Referred By | Referred To | | | | | Procedures | Contact | Contact | +--------+--------+ + + + + | Closed | | Radiology | Diagnoses | Gerson, | Rad Mri | | | | | S/P | Gage Antonio, | [address] | | | | | Achilles | PA-C [address] | | | | | tendon | [address] | Mailcode: | | | | | repair | [facility] | [facility] | | | | | Procedures | Rd | for Health | | | | | MRI ANKLE RT | [place], [place] | and Healing, | | | | | WO CONTRAST | [address] | [address], | | | | | - [place] | Phone: | 3rd Floor | | | | | CO MRI | [phone] | [place], [place] | | | | | LOWER EXTREM | Fax: | [address] | | | | | JT, W/O | [phone] | Phone: | | | | | CONTRAST | | [phone] | | | | | | | Fax: | | | | | | | [phone] | +--------+--------+ + + + + Encounter Details +--------+ + + + + | Date | Type | Department | Care Team | Description | +--------+ + + + + | 06/11/ | Hospital | [facility] | [facility]o | | | 2017 | Encounter | [facility] at | ANJEL Antonio [address] | | | | | [place] [address] [address] | | | | | [address] | [place], [place] | | | | | [place], [place] | [address] | | | | | [address] | [phone] | | | | | [phone] | | | +--------+ + + + [...] | + +--------+ + + + | MRI ANKLE RT WO | Routin | 06/11/2017 | S/P Achilles | Results for this | | CONTRAST - [place] | e | 8:53 AM | tendon repair | procedure are in the | | | | PST | | results section. | + +--------+ + + + documented in this encounter Results MRI ANKLE RT WO [...] Achilles rupture status post repair on March 14 | | 2016. COMPARISON: Radiograph right ankle [...] + + | S/P Achilles tendon repair Other postprocedural status | + + documented in this encounter"
--- OUTSIDE RECORDS SUMMARY | ~2019-05-06 | XMS | Encounter Summary ---
Demographics + + + | Address | [address] | | | [place] [address] | + + + | Home Phone | | + + + | Preferred Language | Unknown | + + + | Marital Status | Single | + + + | Latter-Day Affiliation | NON | + + + | Race | White | + + + | Ethnic Group | Not or | + + + Author + + + | Author | [facility] | + + + | Organization | [facility] | + + + | Address | Unknown | + + + | Phone | Unavailable | + + + Support + + + + + | Name | Relationship | Address | Phone | + + + + + | Linden Farah | ECON | [address] | | | | | [place] | | | | | [address] | | + + + + + Care Team Providers + +------+ + | Care Child Welfare Manager Name | Role | Phone | [...] | | | | | repair | [facility] | [facility] | | | | | Procedures | Rd | for Health | | | | | MRI ANKLE RT | [place], [place] | and Healing, | | | | | WO CONTRAST | [address] | [address], | | | | | - [place] | Phone: | 3rd Floor | | | | | GA MRI | [phone] | [place], [place] | | | | | [address] EXTREM | Fax: | [phone] | | | | | JT, W/O | [phone] | Phone: | | | | | CONTRAST | | [phone] | | | | | | | Fax: | | | | | | | [phone] | +--------+--------+ + + + + Encounter [...] | | | Ave Mailcode: CH12A | [facility] [place] | | | | | [facility] | [address] | | | | | and [facility], | [phone] | | | | | [facility] | | | | | | Floor [place], [place] | | | | | | [address] | | | | | | [phone] | | | +--------+ + + + [...] + + | Performing | Address | City/State[facility] | Phone Number | | Organization | [...]
--- OUTSIDE RECORDS SUMMARY | ~2019-05-06 | XMS | Encounter Summary ---
Demographics + + + | Address | [address] | | | [place] [address] | + + + | Home Phone [...] Author + + + | Author | [facility] | + + + | Organization | [facility] | + + + | Address | Unknown | + + + | Phone | Unavailable | + + + Support + + + + + | Name | Relationship | Address | Phone | + + + + + | Linden Farah | ECON | [address] | | | | | [place] | | | | | [address] | | + + + + + Care Team Providers + +------+ + | Care Mill Set Up Name | Role | Phone | + [...] Farah | | 2017 | Encounter | [facility] [address] | [address] | | | | | Ave Mailcode: CH12A | [place], [place] | | | | | [facility] | [address] | | | | | and [place], | [phone] | | | | | [facility] | | | | | | Floor [place], [place] | | | | | | [address] | | | | | | [phone] | | | +--------+ + + + [...]
--- OUTSIDE RECORDS SUMMARY | ~2019-05-06 | XMS | Encounter Summary ---
Demographics + + + | Address | [address] | | | [place] [address] | + + + | Home Phone [...] + + | Author | [facility] | + + + | Organization | [facility] | + + + | Address | Unknown | + + + | Phone | Unavailable | + + + Support + + + + + | Name | Relationship | Address | Phone | + + + + + | Linden Farah | ECON | [address] | | | | | [place] | | | | | [address] | | + + + + + Care Team Providers + +------+ + | Care Supervisor Power Reactor Name | Role | Phone | + +------+ + | Nolan Pierre MD | PCP | | + +------+ + Encounter Details +--------+ + + + + | Date | Type | Department | Care Team | Description | +--------+ + + + + | 03/18/ | Procedure | 6A Intra Op [facility] | | | | 2016 | Pass | [facility] | | | | | | Admitting Desk | | | | | | Located on the 9th | | | | | | floor [address] [facility] | | | | | | [address] | | | | | | [place], [place] | | | | | | [address] | | | +--------+ + + + [...]
--- OUTSIDE RECORDS SUMMARY | ~2019-05-06 | XMS | Encounter Summary ---
Demographics + + + | Address | [address] | | | [place] [address] | + + + | Home Phone | | + + + | Preferred Language | Unknown | + + + | Marital Status | Single | + + + | Yazdanism Affiliation | NON | + + + | Race | White | + + + | Ethnic Group | Not or | + + + Author + + + | Author | [facility] | + + + | Organization | [facility] | + + + | Address | Unknown | + + + | Phone | Unavailable | + + + Support + + + + + | Name | Relationship | Address | Phone | + + + + + | Linden Farah | ECON | [address] | | | | | [place] | | | | | [address] | | + + + + + Care Team Providers + +------+ + | Care Grinder Gear Name | Role | Phone | + +------+ + | Nolan Pierre MD | PCP | | + +------+ + Encounter Details +--------+ + + + + | Date | Type | Department | Care Team | Description | +--------+ + + + + | 02/26/ | Document-Sc | UNKNOWN DEPARTMENT | Unknown . | | | 2017 | anned | [address] [facility] | | | | | | [address] | | | | | | [place], [place] | | | | | | [address] | | | +--------+ + + + [...] | + +--------+ + + + | RADIOLOGY | | 02/26/2017 | | Results for this | | | | 12:00 AM | | procedure are in the | | | | PDT | | results section. | + +--------+ + + + documented in this encounter Results RADIOLOGY (02/26/2017 12:00 AM PDT) + + + | Narrative | Performed At | + + + | | | + + + documented in this encounter Visit Diagnoses Not on filedocumented in this encounter"
--- OUTSIDE RECORDS SUMMARY | ~2019-05-06 | XMS | Clinical Summary ---
Demographics + + + | Address | [address] | | | [place] [address] | + + + | Home Phone | | + + + | Preferred Language | Unknown | + + + | Marital Status | Single | + + + | Temple Affiliation | Unknown | + + + | Race | Unknown | + + + | Ethnic Group | Unknown | + + + Author + + + | Author | [facility] | | | and [place] | + + + | Organization | [facility] | | | and [place] | + + + | Address | Unknown | + + + | Phone | Unavailable | + + + Support + + +---------+ + | Name | Relationship | Address | Phone | + + +---------+ + | Teena Mcgowan | ECON | Unknown | | + + +---------+ + Care Team Providers + +------+ + | Care R Developer Name | Role | Phone | + +------+ + | Nolan Pierre MD | PCP | | + +------+ + Allergies No Known Allergies Medications + + + +---------+------+------+-------+ | Medication | Sig | Dispensed | Refills | Star | End | Statu | | | | | | t | Date | s | | | | | | Date | | | + + + +---------+------+------+-------+ | simvastatin | Take 40 mg by mouth | | 0 | 02/26 | | Activ | | (ZOCOR) 40 mg tablet | nightly. | | | 420 | | e | | | | | | 12 | | | + + + +---------+------+------+-------+ | pilocarpine | Take 5 mg by mouth | | 0 | 02/26 | | Activ | | (SALAGEN) 5 mg | every morning. | | | 10/15 | | e | | tablet | | | | 12 | | | + + + +---------+------+------+-------+ | aspirin 325 mg | Take 325 mg by mouth | | 0 | 1 | | Activ | | tablet | Daily. | | | 10/15 | | e | | | | | | 12 | | | + + + +---------+------+------+-------+ | potassium chloride | Take 20 mEq by mouth | | 0 | 02/26 | | Activ | | (KLOR-CON) 20 MEQ | Daily. | | | 420 | | e | | packet | | | | 12 | | | + + + +---------+------+------+-------+ | verapamil (VERELAN | Take 240 mg by mouth | | 0 | 02/26 | | Activ | | PM) 240 MG 24 hr | Daily. | | | 10/15 | | e | | capsule | | | | 12 | | | + + + +---------+------+------+-------+ | lidocaine | 4 times a day before | | 0 | 02/26 | | Activ | | (XYLOCAINE) 2% | meals and at | | | 10/15 | | e | | solution | bedtime | | | 12 | | | + + + +---------+------+------+-------+ | | Take 100-25 mg by | | 0 | 06/28 | | Activ | | losartan-hydrochloro | mouth Daily. | | | 07/17 | | e | | thiazide (HYZAAR) | | | | 12 | | | | 100-25 MG per tablet | | | | | | | + + + +---------+------+------+-------+ | tiZANidine | Take 4 mg by mouth | | 0 | | | Activ | | (ZANAFLEX) 4 mg | every 6 hours as | | | | | e | | tablet | needed. | | | | | | + + + +---------+------+------+-------+ | meloxicam (MOBIC) | Take 1 tablet by | 60 | 5 | 10/26 | | Activ | | 7.5 mg tablet | mouth Twice daily | tablet | | 09/14 | | e | | | as needed for Pain. | | | 17 | | | + + + +---------+------+------+-------+ Active Problems + + + | Problem | Noted Date | + + + | Degenerative disc disease, cervical | 11/07/2016 | + + + | Foraminal stenosis of cervical region | 11/07/2016 | + + + | Cervical radiculopathy | 11/07/2016 | + + + | Pain in right hand | 04/29/2016 | + + + | Weakness of right hand | 04/29/2016 | + + + | Impaired mobility and ADLs | 04/29/2016 | + + + | GLOSSITIS | 07/08/2011 | + + + Family History + + +------+ + | Medical History | Relation | Name | Comments | + + +------+ + | Lung cancer | Father | | | + + +------+ + | Heart defect | Mother | | | + + +------+ + + +------+ + + | Relation | Name | Status | Comments | + +------+ + + | Father | | | natural causes | | | | (Age | | | | | 77) | | + +------+ + + | Mother | | | natural causes | | | | (Age | | | | | 82) | | + +------+ + + Social History + +-------+ +--------+------+ [...] + +---------+ + | Alcohol Use | Drinks/We | oz/Week | Comments | | | ek | | | + + +---------+ + | Yes | 0 | 0.0 | | | | Standard | | | | | drinks or | | | | | | | | | | equivalen | | | | | t | | | + + +---------+ + [...] recent travel history available. | + + Last Filed Vital Signs + + + + | Vital Sign | Reading | Time Taken | + + + + | Blood Pressure | 136/88 | 11/07/2016 0825 PDT | + + + + | Pulse | 70 | 11/07/2016824 PDT | + + + + | Temperature | - | - | + + + + | Respiratory Rate | 12 | 11/07/2016824 PDT | + + + + | Oxygen Saturation | - | - | + + + + | Inhaled Oxygen | - | - | | Concentration | | | + + + + | Weight | 94.3 kg (208 lb) | 11/07/2016824 PDT | + + + + | Height | 177.8 cm (5' 10") | 11/07/2016824 PDT | + + + + | Body Mass Index | 29.84 | 11/07/2016 0825 PDT | + + + + Plan of Treatment + + + + + | Health Maintenance | Due Date | Last Done | Comments | + + + + + | Vaccine: | | | | | Dtap/Tdap/Td (1 - | 4 | | | | Tdap) | | | | + + + + + | Vaccine: Zoster (1 | | | | | of 2) | 5 | | | + + + + + | Vaccine: Influenza | | | | | (#1) | 9 | | | + + + + + Results Not on filefrom Last 3 Months Insurance +-------+--------+ +--------+ + +------+ | Payer | Benefi | Subscriber | Effect | Phone | Address | Type | | | t Plan | ID | sylvie | | | | | | / | | Dates | | | | | | Group | | | | | | +-------+--------+ +--------+ + +------+ | MODA | MODA | [id number] | 06/28/19 | [phone] | [address] | PPO | | | [place]FF[place] | | 16-Pre | [phone] | [phone] | | | | [place] | | [place] | | [place], | | | | [place] | | | | [place] [address] | | | | [employer] | | | | | | | | EPO | | | | | | +-------+--------+ +--------+ + +------+ + +--------+ +--------+ + + | Guarantor Name | Accoun | Relation to | Date | Phone | Billing Address | | | t Type | Patient | of | | | | | | | | | | + +--------+ +--------+ + + | Lola Farah | Person | Self [birth year] | [address] | | | al/Fam | | 1956 | [phone] | [place] | | | ever | | | 1 (Home) | [address] | + +--------+ +--------+ + + Advance Directives Patient has advance care planning documents on file. For more information, please contact:[facility] [place] [address]
--- OUTSIDE RECORDS SUMMARY | ~2019-05-06 | XMS | Encounter Summary ---
Demographics + + + | Address | [address] | | | [place] [address] | + + + | Home Phone | | + + + | Preferred Language | Unknown | + + + | Marital Status | Single | + + + | Episcopalian Affiliation | NON | + + + [...] + | Linden Farah | ECON | [address] | | | | | [place] | | | | | [address] | | + + + + + Care Team Providers + +------+ + | Care Enamel Dipper Name | Role | Phone | + +------+ + | Nolan Pierre MD | PCP | | + +------+ + Encounter Details +--------+ + + + + | Date | Type | Department | Care Team | Description | +--------+ + + + + | 03/18/ | Pharmacy | Outpatient Retail | | | | 2016 | Visit | [facility] | | | | | | [address] | | | | | | [place], | | | | | | [place] [address] | | | +--------+ + + + [...]
--- OUTSIDE RECORDS SUMMARY | ~2019-05-06 | XMS | Encounter Summary ---
Demographics + + + | Address | [address] | | | [place] [address] | + + + | Home Phone | | + + + | Preferred Language | Unknown | + + + | Marital Status | Single | + + + | Voodoo Affiliation | NON | + + + [...] + | Linden Farah | ECON | [address] | | | | | [place] | | | | | [address] | | + + + + + Care Team Providers + +------+ + | Care High Lighter Name | Role | Phone | + +------+ + | Nolan Pierre MD | PCP | | + +------+ + Encounter Details +--------+ + + + + | Date | Type | Department | Care Team | Description | +--------+ + + + + | 05/10/ | MyChart | Orthopaedics at | [facility] | RE: Lola Farah | | 2016 | Encounter | [facility] [address] PA-C [address] | | | | | Kimberlee Mailcode: [id number] | [address] | | | | | [facility] | [place], [place] | | | | | and [place], | [address] | | | | | [facility] | [phone] | | | | | Floor [place], [place] | | | | | | [address] | | | | | | [phone] | | | +--------+ + + + [...]
--- OUTSIDE RECORDS SUMMARY | ~2019-05-06 | XMS | Encounter Summary ---
Demographics + + + | Address | [address] | | | [place] [address] | + + + | Home Phone | | + + + | Preferred Language | Unknown | + + + | Marital Status | Single | + + + | Bahai Affiliation | NON | + + + [...] + | Linden Farah | ECON | [address] | | | | | [place] | | | | | [address] | | + + + + + Care Team Providers + +------+ + | Care Chief Minister Name | Role | Phone | + +------+ + | Nolan Pierre MD | PCP | | + +------+ + Reason for Visit +---------+ + | Reason | Comments | +---------+ + | Post Op | r achilles rupture | +---------+ + PROC - Outpatient Surgery (Routine) +--------+--------+ + + + + | Status | Reason | Specialty | Diagnoses / | Referred By | Referred To | | | | | Procedures | Contact | Contact | +--------+--------+ + + + + | Closed | | Orthopedics | Diagnoses | [facility] | [place], | | | | | Achilles | Epic Dept | Oscar Brock MD | | | | | rupture, | | [address] | | | | | right, | | Ave | | | | | initial | | [place], [place] | | | | | encounter | | [address] | | | | | Procedures | | Phone: | | | | | REQUEST TO | | [phone] | | | | | SURGERY | | Fax: | | | | | DOCK ATTENDANT | | [phone] | | | | | [place] REPAIR | | | | | | | ACHILLES | | | | | | | TENDON,PRIMA | | | | | | | RY [place] | | | | | | | REPAIR/GRAFT | | | | | | | ACHILLES | | | | | | | TENDON | | | +--------+--------+ + + + + Encounter Details +--------+---------+ + + + | Date | Type | Department | Care Team | Description | +--------+---------+ + + + | 04/30/ | Office | Orthopaedics at | Gage Nieto | Rupture of right | | 2017 | Visit | [facility] [address] | [address] [facility] | Achilles tendon, | | | | [address] | [address] | subsequent encounter | | | | [address] | [place], [place] | (Primary Dx) | | | | [place], [place] | [address] | | | | | [address] | [phone] | | | | | [phone] | | | +--------+---------+ + + + [...] Weight | 86.2 kg (190 lb) | 04/30/2017 12:13 PM | | | | | PDT | | + + + + + | Height | 177.8 cm (5' 10") | 04/30/2017 12:13 PM | | | | | PDT | | + + + + + | Body Mass Index | 27.26 | 04/30/2017 12:13 PM | | | | | PDT | | + + + + + documented in this encounter Progress Notes Gage Nieto PA-C - 04/30/2017 12:15 PM PDTDiagnosis: 03/18/17 R achilles repair SUBJECTIVE Lola Farah was seen today for his follow up visit. He has mild pain that is poorly co ntrolled with oral analgesics. He tolerates the pain well during the day, then pain is wors e at night and is limiting his sleep. He describes burning and fluctuating pain through the posterior leg and into the arch. The hydrocodone is not helping with the pain. Presently ambulating WBAT in walking boot The complete past medical history, medications, allergies, [...] No tenderness to palpation along the achilles tendon. ASSESSMENT/PLAN He returns in followup from the above. Continue with PT. Ai protocol provided today. Gabapentin prescribed today. He is anxious to return home to [facility]. Ok for him to return home and resume PT there. F/U in 6 weeks Gage Nieto PA-C documented in t his encounter Plan of Treatment Not on filedocumented as of this encounter Procedures + +--------+ + + + | Procedure Name | Priori | Date/Time | Associated Diagnosis | Comments | | | ty | | | | + +--------+ + + + | ORDERS OTHER | | 04/30/2017 | | Results for this | | | | 12:00 AM | | procedure are in the | | | | PDT | | results section. | + +--------+ + + + | ORDERS OTHER | | 04/30/2017 | | Results for this | | | | 12:00 AM | | procedure are in the | | | | PDT | | results section. | + +--------+ + + + documented in this encounter Results ORDERS OTHER (04/30/2017 12:00 AM PDT) + + + | Narrative | Performed At | + + + | | | + + + ORDERS OTHER (04/30/2017 12:00 AM PDT) + + + | Narrative | Performed At | + + + | | | + + + documented in this encounter Visit Diagnoses + + | Diagnosis | + + | Rupture of right Achilles tendon, subsequent encounter - Primary | + + documented in this encounter
--- OUTSIDE RECORDS SUMMARY | ~2019-05-06 | XMS | Encounter Summary ---
Demographics + + + | Address | [address] | | | [place] [address] | + + + | Home Phone | | + + + | Preferred Language | Unknown | + + + | Marital Status | Single | + + + | Restoration Affiliation | NON | + + + | Race | White | + + + | Ethnic Group | Not or | + + + Author + + + | Author | [facility] | + + + | Organization | [facility] | + + + | Address | Unknown | + + + | Phone | Unavailable | + + + Support + + + + + | Name | Relationship | Address | Phone | + + + + + | Linden Farah | ECON | [address] | | | | | [place] | | | | | [address] | | + + + + + Care Team Providers + +------+ + | Care Maintenance Millwright Name | Role | Phone | + +------+ + | Nolan Pierre MD | PCP | | + +------+ + Encounter Details +--------+ + + + + | Date | Type | Department | Care Team | Description | +--------+ + + + + | 05/25/ | MyChart | Orthopaedics at | Gage Nieto | RE: Lola Farah | | 2016 | Encounter | [facility] [address] PA-C [address] | | | | | [place] Mailcode: [id number] | [address] | | | | | [facility] | [place], [place] | | | | | and [place], | [address] | | | | | [facility] | [phone] | | | | | Floor [place], [place] | | | | | | [address] | | | | | | [phone] | | | +--------+ + + + [...]
--- OUTSIDE RECORDS SUMMARY | ~2019-05-06 | XMS | Encounter Summary ---
Demographics + + + | Address | [address] | | | [place] [address] | + + + | Home Phone | | + + + | Preferred Language | Unknown | + + + | Marital Status | Single | + + + | Hindu Affiliation | NON | + + + [...] + | Linden Farah | ECON | [address] | | | | | [place] | | | | | [address] | | + + + + + Care Team Providers + +------+ + | Care Retail Office Associate Name | Role | Phone | + [...] | | | | WO CONTRAST | [address] | Building [address], | | | | | - ACHILLES | Phone: | 3rd Floor | | | | | ID MRI | [phone] | [place], [place] | | | | | LOWER EXTREM | Fax: | [address] | | | | | JT, W/O | [phone] | Phone: | | | | | CONTRAST | | [phone] | | | | | | | Fax: | | | | | | | [phone] | +--------+--------+ + + + + Reason [...] | | | MRI ANKLE RT | [place], [place] | and Healing, | | | | | WO CONTRAST | [address] | Building 1, | | | | | - ACHILLES | Phone: | 3rd Floor | | | | | ID MRI | [phone] | [place], [place] | | | | | LOWER EXTREM | Fax: | [address] | | | | | JT, W/O | [phone] | Phone: | | | | | CONTRAST | | [phone] | | | | | | | Fax: | | | | | | | [phone] | +--------+--------+ + + + + Encounter Details +--------+ + + + + | Date | Type | Department | Care Team | Description | +--------+ + + + + | 06/11/ | Hospital | [facility] | Gage Nieto | | | 2017 | Encounter | [place] at | [address] Antonio [address] | | | | | [place] [address] [address] | [address] | | | | | [address] | [place], [place] | | | | | [place], [place] | [address] | | | | | [address] | [phone] | | | | | [phone] | | | +--------+ + + + [...]
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
--- OUTSIDE RECORDS SUMMARY | ~2019-05-06 | XMS | Encounter Summary ---
Demographics + + + | Address | [address] | | | [place] [address] | + + + | Home Phone [...] + | Linden Farah | ECON | [address] | | | | | [place] | | | | | [address] | | + + + + + Care Team Providers + +------+ + | Care Harbor Boat Pilot Name | Role | Phone | + +------+ + | Nolan Pierre MD | PCP | | + +------+ + Encounter Details +--------+ + + + + | Date | Type | Department | Care Team | Description | +--------+ + + + + | 04/16/ | MyChart | Orthopaedics at | Gage Nieto | RE: Lola Farah | | 2016 | Encounter | [facility] [address] PA-C [address] | | | | | [place] Mailcode: [id number] | [address] | | | | | [facility] | [place], [place] | | | | | and [place], | [address] | | | | | [facility] | [phone] | | | | | Floor [place], [place] | | | | | | [address] | | | | | | [phone] | | | +--------+ + + + [...]
--- OUTSIDE RECORDS SUMMARY | ~2019-05-06 | XMS | Encounter Summary ---
Demographics + + + | Address | [address] | | | [place] [address] | + + + | Home Phone | | + + + | Preferred Language | Unknown | + + + | Marital Status | Single | + + + | Latter Day Affiliation | NON | + + + | Race | White | + + + | Ethnic Group | Not or | + + + Author + + + | Author | [facility] | + + + | Organization | [facility] | + + + | Address | Unknown | + + + | Phone | Unavailable | + + + Support + + + + + | Name | Relationship | Address | Phone | + + + + + | Linden Farah | ECON | [address] | | | | | [place] | | | | | [address] | | + + + + + Care Team Providers + +------+ + | Care Hot Plate Plywood Press Offbearer Name | Role | Phone | + [...] | Orthopedics | Diagnoses | [facility] | [place], | | | | | Achilles | Epic Dept | Oscar Brock MD | | | | | rupture, | | [address] | | | | | right, | | Ave | | | | | initial | | [place], [place] | | | | | encounter | | [address] | | | | | Procedures | | Phone: | | | | | REQUEST TO | | [phone] | | | | | SURGERY | | Fax: | | | | | REGISTERED NURSE POST PARTUM | | [phone] | | | | | [place] REPAIR | | | | | | | ACHILLES | | | | | | | TENDON,PRIMA | | | | | | | RY [place] | | | | | | | [...] tendon | | 2017 | Visit | [facility] [address] | [address] | repair (Primary Dx) | | | | [place] Mailcode: [id number] | [address] | | | | | [facility] | [place], [place] | | | | | and Healing, | [address] | | | | | Building | [phone] | | | | | Floor [place], [place] | | | | | | [address] | | | | | | [phone] | | | +--------+---------+ + + + [...]
--- OUTSIDE RECORDS SUMMARY | ~2019-05-06 | XMS | Encounter Summary ---
Demographics + + + | Address | [address] | | | [place] [address] | + + + | Home Phone [...] + + + | Author | [facility] | + + + | Organization | [facility] | + + + | Address | Unknown | + + + | Phone | Unavailable | + + + Support + + + + + | Name | Relationship | Address | Phone | + + + + + | Linden Farah | ECON | [address] | | | | | [place] | | | | | [address] | | + + + + + Care Team Providers + +------+ + | Care Toxicology Teacher Name | Role | Phone | + [...] | 2017 | | [facility] [address] | MD [address] | clarification ) | | | | Ave Mailcode: CH12A | [place], [place] | | | | | [facility] | [address] | | | | | and Healing, | [phone] | | | | | | | | | | | Floor [place], [place] | | | | | | [address] | | | | | | [phone] | | | +--------+ + + + [...]
--- OUTSIDE RECORDS SUMMARY | ~2019-05-06 | XMS | Encounter Summary ---
Demographics + + + | Address | [address] | | | [place] [address] | + + + | Home Phone [...] Author + + + | Author | [facility] | + + + | Organization | [facility] | + + + | Address | Unknown | + + + | Phone | Unavailable | + + + Support + + + + + | Name | Relationship | Address | Phone | + + + + + | Linden Farah | ECON | [address] | | | | | [place] | | | | | [address] | | + + + + + Care Team Providers + +------+ + | Care Manager Of Selection And Assessment Name | Role | Phone | + +------+ + | Nolan Pierre MD | PCP | | + +------+ + Encounter Details +--------+ + + + + | Date | Type | Department | Care Team | Description | +--------+ + + + + | 02/26/ | Document-Sc | UNKNOWN DEPARTMENT | Unknown . | | | 2017 | anned | [address] [facility] | | | | | | [address] | | | | | | [place], [place] | | | | | | [address] | | | +--------+ + + + [...]
--- OUTSIDE RECORDS SUMMARY | ~2019-05-06 | XMS | Encounter Summary ---
Demographics + + + | Address | [address] | | | [place] [address] | + + + | Home Phone [...] Author + + + | Author | [facility] | + + + | Organization | [facility] | + + + | Address | Unknown | + + + | Phone | Unavailable | + + + Support + + + + + | Name | Relationship | Address | Phone | + + + + + | Linden Farah | ECON | [address] | | | | | [place] | | | | | [address] | | + + + + + Care Team Providers + +------+ + | Care Stand Grinder Name | Role | Phone | + +------+ + | Nolan Pierre MD | PCP | | + +------+ + Encounter Details +--------+ + + + + | Date | Type | Department | Care Team | Description | +--------+ + + + + | 05/07/ | MyChart | Orthopaedics at | Gage Nieto | RE: Lola Farah- | | 2017 | Encounter | [facility] [address] PA-C [address] | Prescription | | | | Ave Mailcode: CH12A | [address] | refills | | | | [facility] | [place], [place] | | | | | [place], | [address] | | | | | [facility] | [phone] | | | | | Floor [place], [place] | | | | | | [address] | | | | | | [phone] | | | +--------+ + + + [...]
--- OUTSIDE RECORDS SUMMARY | ~2019-05-06 | XMS | Encounter Summary ---
Demographics + + + | Address | [address] | | | [place] [address] | + + + | Home Phone [...] Author + + + | Author | [facility] | + + + | Organization | [facility] | + + + | Address | Unknown | + + + | Phone | Unavailable | + + + Support + + + + + | Name | Relationship | Address | Phone | + + + + + | Linden Farah | ECON | [address] | | | | | [place] | | | | | [address] | | + + + + + Care Team Providers + +------+ + | Care Pool Technician Name | Role | Phone | + [...] + + + + | 03/18/ | Hospital | [facility] [address] | Oscar Eng, | | | 2017 | Encounter | [address] | [address] | | | | | [address] | [place], [place] | | | | | [place], | [address] | | | | | [place] [address] | [phone] | | | | | [phone] | | | +--------+ + + + [...] medication was given at: None given at [facility] ? Please follow your Doctor s instructions [...] a patient satisfaction survey from "[employer]ina [employer]". Owen brunner appreciate your feedback on the survey to [...] | | | | | | EQUIPMENT [place]) | | | | | | + + + +---------+ + + | MEDICAL SUPPLY, | | 1 each | 0 | 03/18/20 | | | MISCELLANEOUS (RX | | | | 17 | 7 | | DURABLE MEDICAL | | | | | | | EQUIPMENT FL) | | | | | | + [...] | Oscar Eng MD 03/24/2017 9:28 PM [facility] | | | [facility] DEPARTMENT OF ORTHOPAEDICS & REHABILITATION | | | OPERATIVE REPORT | | | Patient Name: Lola Farah Date of : 1955 Medical | | | Record Number: [id number] Contract Serial Number:: [id number] Report | | | Author: Oscar Eng MD Procedure Date: 03/18/2017 | | | Attending Physician: 1Carine Eng MD Tank Car Reconditioner(s): 1. | | | Gage [place] Preoperative [...] | | | proximally with #5 fiberwire Stockton sutures. Then distally the | | | tendon sheath was incised exposing the distal tendon. This was | | | similarly captured with Stock[place] sutures. A tendon passer was used | [...] | + + + + + | [facility] | [address] | [place] [address] | | | SERVICES, | [address] [...] | + + + + + | [facility] | [address] | [place] [address] | | | SERVICES, | [address] [...] (H) | 70 - 99 mg/dL | [facility] - | | | GLUCOSE, | | [...] + + + | KRISHNA MICHELLE | [address] | [place], [place] | | | [facility] | [address] | [address] | | | TESTS | | | [...] + | Achilles rupture, right, initial encounter | + + documented in this encounter Administered Medications + + + +------+------+------+ | Medication Order | MAR | Action | Dose | Rate | Site | | | Action | Date | | | | + + + +------+------+------+ | lactated Ringers IV 10 mL/hr, | given by | 03/18/20 | | | | | intravenous, PROCEDURE | | 17 11:45 | | | | | CONTINUOUS, Starting Niru 03/18/17 | anesthes | AM PDT | | | | | at 0715, Until Wed03/18/17 at | iology | | | | | | 1254 | | | | | | + + + +------+------+------+ + + +---+---+---+ | given by anesthesiology [...] PDT | | | | | Starting [facility] 03/18/17 at 0945, | | | | | | | Until [facility] 03/18/17 at 1254 | | | | | | + +---------+ +---+---+---+ +---+---+ | | | +---+---+ documented in this encounter
--- OUTSIDE RECORDS SUMMARY | ~2019-05-06 | XMS | Encounter Summary ---
Demographics + + + | Address | [address] | | | [place] [address] | + + + | Home Phone | | + + + | Preferred Language | Unknown | + + + | Marital Status | Single | + + + | Buddhism Affiliation | NON | + + + [...] + | Linden Farah | ECON | [address] | | | | | [place] | | | | | [address] | | + + + + + Care Team Providers + +------+ + | Care Certified Nuclear Medicine Technologist Name | Role | Phone | + [...] Description | +--------+--------+ + + + | 05/11/ | Refill | [facility] at | Gage Nieto | Refill Request | | 2016 | | [facility] [address] | [address] [facility] | | | | | [address] | [facility] | | | | | [facility] [address] | [place], [place] | | | | | [place], [place] | [address] | | | | | [address] | [phone] | | | | | [phone] | | | +--------+--------+ + + + [...]
--- OUTSIDE RECORDS SUMMARY | ~2019-05-06 | XMS | Encounter Summary ---
Demographics + + + | Address | [address] | | | [place] [address] | + + + | Home Phone | | + + + | Preferred Language | Unknown | + + + | Marital Status | Single | + + + | Jehovah'S Witness Affiliation | NON | + + + | Race | White | + + + | Ethnic Group | Not or | + + + Author + + + | Author | [facility] | + + + | Organization | [facility] | + + + | Address | Unknown | + + + | Phone | Unavailable | + + + Support + + + + + | Name | Relationship | Address | Phone | + + + + + | Linden Farah | ECON | [address] | | | | | [place] | | | | | [address] | | + + + + + Care Team Providers + +------+ + | Care Ergonomics Engineer Name | Role | Phone | + [...] Farah | | 2017 | Encounter | [facility] [address] | [address] | | | | | Ave Mailcode: [id number] | [place], [place] | | | | | [facility] | [address] | | | | | and [place], | [phone] | | | | | [facility] | | | | | | Floor [place], [place] | | | | | | [address] | | | | | | [phone] | | | +--------+ + + + [...]
--- OUTSIDE RECORDS SUMMARY | ~2019-05-06 | XMS | Encounter Summary ---
Demographics + + + | Address | [address] | | | [place] [address] | + + + | Home Phone | | + + + | Preferred Language | Unknown | + + + | Marital Status | Single | + + + | Yazidi Affiliation | NON | + + + [...] + | Linden Farah | ECON | [address] | | | | | [place] | | | | | [address] | | + + + + + Care Team Providers + +------+ + | Care Profile Mill Operator Tape Control Name | Role | Phone | + [...] Clinic Dermatology | | | | | [facility] | [address] [facility] | | | | | and Healing, | [place], [place] | | | | | [facility] | [id number] | | | | | Floor [place], [place] | | | | | | [address] | | | | | | [phone] | | | +--------+ + + + [...] [facility] | Mailcode CH5D, [address] | [place] [address] | | | DERMATOPATHOLOGY | [address] | | | + + + + + documented in this encounter Visit Diagnoses + + | Diagnosis | + + | Neoplasm of uncertain behavior of skin | + + documented in this encounter
--- OUTSIDE RECORDS SUMMARY | ~2019-05-06 | XMS | Encounter Summary ---
Demographics + + + | Address | [address] | | | [place] [address] | + + + | Home Phone [...] Author + + + | Author | [facility] | + + + | Organization | [facility] | + + + | Address | Unknown | + + + | Phone | Unavailable | + + + Support + + + + + | Name | Relationship | Address | Phone | + + + + + | Linden Farah | ECON | [address] | | | | | [place] | | | | | [address] | | + + + + + Care Team Providers + +------+ + | Care Generator Operator Straight Bevel Gear Name | Role | Phone | [...] | Orthopedics | Diagnoses | [facility] | [place], | | | | | Achilles | Epic Dept | Oscar Brock MD | | | | | rupture, | | [address] | | | | | right, | | Ave | | | | | initial | | [place], [place] | | | | | encounter | | [address] | | | | | Procedures | | Phone: | | | | | REQUEST TO | | [phone] | | | | | SURGERY | | Fax: | | | | | FITNESS DIRECTOR | | [phone] | | | | | MD REPAIR | | | | | | | ACHILLES | | | | | | | TENDON,PRIMA | | | | | | | RY MD | | | | | | | [...] | | | | | | | [place], [place] | | | | | | | [address] | | | | | | | Phone: | | | | | | | [phone] | | | | | | | Fax: | | | | | | | [phone] | +--------+--------+ + + + + Encounter Details +--------+---------+ + + + | Date | Type | Department | Care Team | Description | +--------+---------+ + + + | 03/12/ | Office | Orthopaedics at | Gage Nieto | Achilles rupture, | | 2017 | Visit | [facility] [address] | [address] | right, initial | | | | [address] | [address] | encounter (Primary | | | | [address] | [place], [place] | Dx) | | | | [place] | [address] | | | | | [address] | [phone] | | | | | [phone] | | | +--------+---------+ + + + [...] offered both op and non-op mgt. I scholarship counselor ed the risks of both (rerupture 9% with non-op vs 2-3% with repair, infection 2-3% with repa ir). I explained reasonable return of function without surgery. He would like to proceed w ith surgery. Recovery explained. Rehab protocol given. Plan for [place] next week. Oscar Eng M.D. Enrichment Teacher Foot and Ankle Surgery Department of Orthopedics & Rehabilitation [facility] [phone] documented in this en counter Plan of Treatment Not on filedocumented as of this encounter Visit Diagnoses + + | Diagnosis | + + | Achilles rupture, right, initial encounter - Primary | + + documented in this encounter
--- OUTSIDE RECORDS SUMMARY | ~2019-05-06 | XMS | Encounter Summary ---
Demographics + + + | Address | [address] | | | [place] [address] | + + + | Home Phone [...] + | Linden Farah | ECON | [address] | | | | | [place] | | | | | [address] | | + + + + + Care Team Providers + +------+ + | Care Instructor Traffic Safety Name | Role | Phone | + +------+ + | Nolan Pierre MD | PCP | | + +------+ + Encounter Details +--------+ + + + + | Date | Type | Department | Care Team | Description | +--------+ + + + + | 05/25/ | Procedure | [facility] | | | | 2016 | Pass | [facility] | | | | | | [place] [address] | | | | | | [address] | | | | | | [place], [place] | | | | | | [address] | | | | | | [phone] | | | +--------+ + + + [...]
--- OUTSIDE RECORDS SUMMARY | ~2019-05-06 | XMS | Encounter Summary ---
Demographics + + + | Address | [address] | | | [place] [address] | + + + | Home Phone | | + + + | Preferred Language | Unknown | + + + | Marital Status | Single | + + + | Mormon Affiliation | NON | + + + [...] + | Linden Farah | ECON | [address] | | | | | [place] | | | | | [address] | | + + + + + Care Team Providers + +------+ + | Care Cafeteria Aide Name | Role | Phone | + +------+ + | Nolan Pierre MD | PCP | | + +------+ + Encounter Details +--------+ + + + + | Date | Type | Department | Care Team | Description | +--------+ + + + + | 04/23/ | MyChart | Orthopaedics at | Gage Nieto | RE: Lola Farah | | 2016 | Encounter | [facility] [address] PA-C [address] | | | | | [place] Mailcode: [id number] | [address] | | | | | [facility] | [place], [place] | | | | | and [place], | [address] | | | | | [facility] | [phone] | | | | | Floor [place], [place] | | | | | | [address] | | | | | | [phone] | | | +--------+ + + + [...]
--- OUTSIDE RECORDS SUMMARY | ~2019-05-06 | XMS | Encounter Summary ---
Demographics + + + | Address | [address] | | | [place] [address] | + + + | Home Phone | | + + + | Preferred Language | Unknown | + + + | Marital Status | Single | + + + | Adventism Affiliation | NON | + + + [...] + | Linden Farah | ECON | [address] | | | | | [place] | | | | | [address] | | + + + + + Care Team Providers + +------+ + | Care Speech Communication Professor Name | Role | Phone | + +------+ + | Nolan Pierre MD | PCP | | + +------+ + Encounter Details +--------+ + + + + | Date | Type | Department | Care Team | Description | +--------+ + + + + | 07/15/ | MyChart | [facility] | Michelle Shields, | Lola Farah: | | 2018 | Encounter | Pain Center at | [address] | Waiting for reply to | | | | [facility] | Ave [place], [place] | email | | | | [address] | [address] | | | | | Mailcode: [id number] | [phone] | | | | | [facility] | | | | | | and Healing, | | | | | | Building | | | | | | Floor [place], [place] | | | | | | [address] | | | | | | [phone] | | | +--------+ + + + [...]
--- OUTSIDE RECORDS SUMMARY | ~2019-05-06 | XMS | Encounter Summary ---
Demographics + + + | Address | [address] | | | [place] [address] | + + + | Home Phone | | + + + | Preferred Language | Unknown | + + + | Marital Status | Single | + + + | Scientology Affiliation | NON | + + + | Race | White | + + + | Ethnic Group | Not or | + + + Author + + + | Author | [facility] | + + + | Organization | [facility] | + + + | Address | Unknown | + + + | Phone | Unavailable | + + + Support + + + + + | Name | Relationship | Address | Phone | + + + + + | Linden Farah | ECON | [address] | | | | | [place] | | | | | [address] | | + + + + + Care Team Providers + +------+ + | Care Biometrics Analyst Name | Role | Phone | + +------+ + | Nolan Pierre MD | PCP | | + +------+ + Encounter Details +--------+ + + + + | Date | Type | Department | Care Team | Description | +--------+ + + + + | 05/28/ | MyChart | Orthopaedics at | Gage Nieto | RE: Lola Farah | | 2016 | Encounter | [facility] [address] PA-C [address] | | | | | [place] Mailcode: [id number] | [address] | | | | | [facility] | [place], [place] | | | | | and [place], | [address] | | | | | [facility] | [phone] | | | | | Floor [place], [place] | | | | | | [address] | | | | | | [phone] | | | +--------+ + + + [...]
--- OUTSIDE RECORDS SUMMARY | ~2019-05-06 | XMS | Encounter Summary ---
Demographics + + + | Address | [address] | | | [place] [address] | + + + | Home Phone [...] + + + | Author | [facility] | + + + | Organization | [facility] | + + + | Address | Unknown | + + + | Phone | Unavailable | + + + Support + + + + + | Name | Relationship | Address | Phone | + + + + + | Linden Farah | ECON | [address] | | | | | [place] | | | | | [address] | | + + + + + Care Team Providers + +------+ + | Care Sales Stock Associate Name | Role | Phone | [...] RIGHT ACHILLES | | 2017 | | [facility] | MD [address] | REPAIR | | | | Admitting Desk | [place], [place] | | | | | Located on the | [address] | | | | | floor [address] [facility] | [phone] | | | | | [address] | | | | | | [place], [place] | | | | | | [address] | | | +--------+---------+ + + + [...] medication was given at: [facility] Please follow your Doctor s [...] satisfaction survey from "[employer]". We vitaliy brunner appreciate your feedback on the survey [...] | | | | | | EQUIPMENT [place]) | | | | | | + + + +---------+ + + | MEDICAL SUPPLY, | | 1 each | 0 | 03/18/20 | | | MISCELLANEOUS (RX | | | | 17 | 7 | | DURABLE MEDICAL | | | | | | | EQUIPMENT NV) | | | | | | + [...] | Oscar Eng MD 03/24/2017 9:28 PM [facility] | | | [facility] DEPARTMENT OF ORTHOPAEDICS & REHABILITATION | | | OPERATIVE REPORT | | | Patient Name: Lola Farah Date of : 1955 Medical | | | Record Number: [id number] Contract Serial Number:: [id number] Report | | | Author: Oscar Eng MD Procedure Date: 03/18/2017 | | | Attending Physician: 1. Oscar Eng MD Day Trader(s): 1. | | | [facility] Preoperative [...] | | | proximally with #5 fiberwire P[place]mont sutures. Then distally the | | | tendon sheath was incised exposing the distal tendon. This was | | | similarly captured with P[place]mont sutures. A tendon passer was used | [...] [facility] | [address] | [place] [address] | | | SERVICES, | [address] [...] | + + + + + | [facility] | [address] | [place] [address] | | | SERVICES, | [address] [...] (H) | 70 - 99 mg/dL | [facility] - | | | GLUCOSE, | | [...] + + + | KRISHNA MICHELLE | [address] | [place], [place] | | | MELISSA POINT OF CARE | [address] | [address] | | | TESTS | | | [...] | | | | at 0715, Until Nriu 03/18/17 at | iology | | | [...] PDT | | | | | Starting [facility] 03/18/17 at 0945, | | | | | | | Until [facility] 03/18/17 at 1254 | | | | | | + +---------+ +---+---+---+ +---+---+ | | | +---+---+ documented in this encounter
--- OUTSIDE RECORDS SUMMARY | ~2019-05-06 | XMS | Encounter Summary ---
Demographics + + + | Address | [address] | | | [place] [address] | + + + | Home Phone | | + + + | Preferred Language | Unknown | + + + | Marital Status | Single | + + + | Temple Affiliation | NON | + + + [...] + | Linden Farah | ECON | [address] | | | | | [place] | | | | | [address] | | + + + + + Care Team Providers + +------+ + | Care Maintenance Groundman Name | Role | Phone | + [...] Refill Request | | 2016 | | [facility] [address] | [address] [facility] | | | | | [address] | [facility] | | | | | [facility] [address] | [place], [place] | | | | | [place], [place] | [address] | | | | | [address] | [phone] | | | | | [phone] | | | +--------+--------+ + + + [...]
--- OUTSIDE RECORDS SUMMARY | ~2019-05-06 | XMS | Encounter Summary ---
Demographics + + + | Address | [address] | | | [place] [address] | + + + | Home Phone | | + + + | Preferred Language | Unknown | + + + | Marital Status | Single | + + + | Adventist Affiliation | NON | + + + [...] + | Linden Farah | ECON | [address] | | | | | [place] | | | | | [address] | | + + + + + Care Team Providers + +------+ + | Care Assistant Speech Language Pathologist Name | Role | Phone | + +------+ + | Nolan Pierre MD | PCP | | + +------+ + Encounter Details +--------+ + + + + | Date | Type | Department | Care Team | Description | +--------+ + + + + | 05/25/ | Procedure | [facility] | | | | 2016 | Pass | [facility] | | | | | | [place] [address] | | | | | | [address] | | | | | | [place], [place] | | | | | | [address] | | | | | | [phone] | | | +--------+ + + + [...]
--- OUTSIDE RECORDS SUMMARY | ~2019-05-06 | XMS | Encounter Summary ---
Demographics + + + | Address | [address] | | | [place] [address] | + + + | Home Phone | | + + + | Preferred Language | Unknown | + + + | Marital Status | Single | + + + | Pentecostalism Affiliation | NON | + + + | Race | White | + + + | Ethnic Group | Not or | + + + Author + + + | Author | [facility] | + + + | Organization | [facility] | + + + | Address | Unknown | + + + | Phone | Unavailable | + + + Support + + + + + | Name | Relationship | Address | Phone | + + + + + | Linden Farah | ECON | [address] | | | | | [place] | | | | | [address] | | + + + + + Care Team Providers + +------+ + | Care Photo Finish Photographer Name | Role | Phone | + [...] Farah | | 2016 | Encounter | [facility] [address] | | | | | [place] Mailcode: [id number] | [address] | | | | | [facility] | [place], [place] | | | | | and [place], | [address] | | | | | [facility] | [phone] | | | | | Floor [place], [place] | | | | | | [address] | | | | | | [phone] | | | +--------+ + + + [...]
--- OUTSIDE RECORDS SUMMARY | ~2019-05-06 | XMS | Encounter Summary ---
Demographics + + + | Address | [address] | | | [place] [address] | + + + | Home Phone | | + + + | Preferred Language | Unknown | + + + | Marital Status | Single | + + + | Druze Affiliation | NON | + + + | Race | White | + + + | Ethnic Group | Not or | + + + Author + + + | Author | [facility] | + + + | Organization | [facility] | + + + | Address | Unknown | + + + | Phone | Unavailable | + + + Support + + + + + | Name | Relationship | Address | Phone | + + + + + | Linden Farah | ECON | [address] | | | | | [place] | | | | | [address] | | + + + + + Care Team Providers + +------+ + | Care Insole Cementer Name | Role | Phone | + [...] | | | | | right | [address] | [address] | | | | | Achilles | [address] | [address] | | | | | tendon, | [place], [place] | 285 | | | | | subsequent | [address] | [place], [place] | | | | | encounter | Phone: | [phone] Phone: | | | | | Procedures | [phone] | [phone] | | | | | PHYSICAL | Fax: | Fax: | | | | | THERAPY | [phone] | [phone] | | | | | REFERRAL | [...] | | | | initial | | [place], [place] | | | | | encounter | | [address] | | | | | Procedures | | Phone: | | | | | REQUEST TO | | [phone] | | | | | SURGERY | | Fax: | | | | | REPRODUCTION MACHINE LOADER | | [phone] | | | | | [place] REPAIR | | | | | | | ACHILLES | | | | | | | TENDON,PRIMA | | | | | | | RY [place] | | | | | | | [...] right | | 2017 | Visit | [facility] [address] | MD [address] | Achilles tendon, | | | | [address] | [place], [place] | subsequent encounter | | | | [address] | [address] | (Primary Dx) | | | | [place], [place] | [phone] | | | | | [address] | | | | | | [phone] | | | +--------+---------+ + + + [...]
--- OUTSIDE RECORDS SUMMARY | ~2019-05-06 | XMS | Encounter Summary ---
Demographics + + + | Address | [address] | | | [place] [address] | + + + | Home Phone | | + + + | Preferred Language | Unknown | + + + | Marital Status | Single | + + + | Denominational Affiliation | NON | + + + | Race | White | + + + | Ethnic Group | Not or | + + + Author + + + | Author | [facility] | + + + | Organization | [facility] | + + + | Address | Unknown | + + + | Phone | Unavailable | + + + Support + + + + + | Name | Relationship | Address | Phone | + + + + + | Linden Farah | ECON | [address] | | | | | [place] | | | | | [address] | | + + + + + Care Team Providers + +------+ + | Care Hot Mill Operator Name | Role | Phone | [...] + + + + | 03/18/ | Anesthesia | 6A Intra Op [facility] | Helen Tolentino | | | 2016 | [facility] | [facility] | MD Juliana [address] | | | | | Admitting Desk | [address] | | | | | Located on the 9th | [place], [place] | | | | | [facility] [address] | [address] | | | | | [address] | [phone] | | | | | [place], [place] | | | | | | [address] | Jan Downs, | | | | | | EDUCATION AND TRAINING COORDINATOR [address] | | | | | | [address] | | | | | | [place], [place] | | | | | | [address] | | | | | | [phone] | | | | | | | | +--------+ + + + + Anesthesia Record + + + + + | Procedure Name | Responsible | Anesthesia Start | Anesthesia Stop Time | | | Anesthesiologist | Time | | + + + + + | RIGHT ACHILLES | Helen Tolentino, | 03/18/17 1015 | 03/18/17 1155 | | REPAIR (Right Foot) | MD | | | + + + + + +----+---+ + + | Da | T | Event | Comment | | te | i | | | | | m | | | | | e | | | +----+---+ + + | 09 | 0 | Block Pause | | | /2 | 8 | | | | 1/ | 2 | | | | 20 | 1 | | | | 17 | | | | +----+---+ + + | | 0 | O2 by NC | | | | 8 | | | | | 2 | | | | | 1 | | | +----+---+ + + | | 0 | Start | | | | 8 | Catheter | | | | 2 | | | | | 4 | | | +----+---+ + + | | 0 | PNB Cath | | | | 8 | Stop | | | | 4 | | | | | 7 | | | +----+---+ + + | | 0 | Start PNB | | | | 8 | SS | | | | 4 | | | | | 7 | | | +----+---+ + + | | 0 | PNB SS Stop | | | | 8 | | | | | 5 | | | | | 4 | | | +----+---+ + + | | 1 | | | | | 0 | | | | | 0 | | | | | 2 | | | +----+---+ + + | | 1 | Pt. Check | Prior to anesthesia start, pt. Identified, examined, chart | | | 0 | | reviewed, PARQ held, anesthetic plan made or approved by | | | 0 | | attending anesthesiologist. NPO status confirmed as appropriate | | | 2 | | for procedure Preoperative evaluation: unchanged | +----+---+ + + | | 1 | An Start | | | | 0 | | | | | 1 | | | | | 5 | | | +----+---+ + + | | 1 | Eq Check | Anesthesia machine checked Equipment verified | | | 0 | | | | | 1 | | | | | 5 | | | +----+---+ + + | | 1 | An Start | | | | 0 | Data | | | | 1 | | | | | 8 | | | +----+---+ + + | | 1 | Vitals | Monitors applied Vital signs checked Patient ready for anesthesia | | | 0 | Checked | | | | 1 | | | | | 9 | | | +----+---+ + + | | 1 | SGA | | | | 0 | | | | | 2 | | | | | 2 | | | +----+---+ + + | | 1 | Ready | | | | 0 | | | | | 2 | | | | | 4 | | | +----+---+ + + | | 1 | Abx | | | | 0 | Administere | | | | 2 | d | | | | 8 | | | +----+---+ + + | | 1 | Incision | | | | 0 | | | | | 3 | | | | | 8 | | | +----+---+ + + | | 1 | Surgery end | | | | 1 | | | | | 4 | | | | | 1 | | | +----+---+ + + | | 1 | SGA Removed | | | | 1 | | | | | 4 | | | | | 2 | | | +----+---+ + + | | 1 | an stop | | | | 1 | data | | | | 4 | | | | | 3 | | | +----+---+ + + | | 1 | PACU Rpt | | | | 1 | Given | | | | 5 | | | | | 5 | | | +----+---+ + + | | 1 | Anesthesia | | | | 1 | End | | | | 5 | | | | | 5 | | | +----+---+ + + +------+ | Meds | +------+ + + + | Name | Total | + + + | celecoxib | 400 mg | + + + | acetaminophen PO | 1,000 mg | + + + | midazolam | 2 mg | + + + | fentaNYL | 200 mcg | + + + | bupivacaine 0.5% | 30 mL | + + + | propofol | 200 mg | + + + | lidocaine 2% | 60 mg | + + + | dexamethasone | 4 mg | + + + | ceFAZolin | 2,000 mg | + + + | ePHEDrine | 10 mg | + + + | ondansetron | 4 mg | + + + | lactated Ringers IV | 800 mL | + + + + + | Name | + + | O2 FR Avance (Total Liters) | + + | Air FR Avance (l/min) | + + | Insp Sevo | + + | Et Sevo | + + | EtN2O % | + + | Insp N2O % | + + + + | No blood administrations on file. | + + +--------+ + + + | Type | Details | Placement | Removal | +--------+ + + + | Incisi | 03/18/17; Dr. Eng; Right; heel | 03/18/17 0000 by | | | on | | Davida Corea RN | | +--------+ + + + | Incisi | 03/18/17; Dr. Eng; Lower, | 03/18/17 0000 by | | | on | Posterior; leg | Davida Corea RN | | +--------+ + + + | Periph | 03/18/17; 813; Clinic Staff; | 03/18/17813 by | | | gradyl | MD Yanet; Right; | Amanda Holt, | | | Nerve | Sciatic/popliteal | | | | Block | | | | +--------+ + + + | Periph | 03/18/17; 724; Huy De Jesus RN; | 03/18/17724 by | 03/18/172206 by | | eral | Right; Forearm; 20 g; None; | Lary Nuñez RN | Discontinued After | | IV | Positive; 03/18/17; 2206 | | Discharge | +--------+ + + + documented in this encounter Social History + +-------+ +--------+------+ | Tobacco [...] | + +--------+ + + + | RENATO LMA | Routin | 03/18/2017 | | Results for this | | | e | 5:25 PM | | procedure are in the | | | | PDT | | results section. | + +--------+ + + + | RENATO MEJIAB SS | Routin | 03/18/2017 | | Results for this | | | e | 10:48 AM | | procedure are in the | | | | PDT | | results section. | + +--------+ + + + | RENATO MEJIAB CATH | Routin | 03/18/2017 | | Results for this | | | e | 10:48 AM | | procedure are in the | | | | PDT | | results section. | + +--------+ + + + documented in this encounter Results RENATO LMA (03/18/2017 5:25 PM PDT) + + + | Narrative | Performed At | + + + | Bg Huertas CRNA 03/18/2017 10:40 AM Procedure Reason | | | for Intubation: For surgical procedure, Location Performed: [place] , | | | Patient was preoxygenated Mask Ventilation Grade 0 - Ventilation by | | | mask not attempted ETT SGA Atraumatic Placement: Yes LMA | | | Type: Air-Q LMA Size: 4.5LMA Size: 4.5 LMA positive for Etco2 | | | Breath Sounds Auscultated: Bilateral and equal Narrative | | | Attending physically present | | + + + ANE PNB SS (03/18/2017 10:48 AM PDT) + + + | Narrative | Performed At | + + + | Amanda Holt MD 03/18/2017 9:08 AM Single-Shot | | | Type Type saphenous block Technique used ultrasound guided Side right | | | Block indication: Have received and accepted request from attending | | | surgeon to offer advanced acute pain management services to the | | | patient Pre-Op The patient was identified, the site marked, full | | | PARQ Done Procedure Pt. Position Supine, Monitors used NIBP, SpO2 | | | and EKG Supplimental O2 used Single Shot Prep: ChloraPrep | | | Ultrasound Spread Characteristics: full spread around nerve/plexus | | | Image printed and placed in patients chart Guidance: Needle tip | | | confirmed by hydrolocalization and Needle tip visualized Needle | | | Needle type: Short-bevel Gauge: 21 G Length: 4 in No, Aspiration | | | was Negative for blood Nerve Stimulator Assessment Ist | | | attempt Result: Block not evaluated prior to induction Complications: | | | None, Block not abandoned Technical difficulty: Easy | | | Intended analgesia: deferred Attending physically present | | | Attending Name: HELEN TOLENTINO I Performed by Resident YANET, | | | AMANDA Pisano Patient awake, alert, conversant throughout procedure. | | | Needle tip visualized throughout procedure under ultrasound | | | guidance. Local anesthetic delivered in 5cc increments with negative | | | aspiration. No complaints or complications noted. See chart for | | | images. | | + + + ANE PNB CATH (03/18/2017 10:48 AM PDT) + + + | Narrative | Performed At | + + + Jenna Holt MD 03/18/2017 9:06 AM PNB Cath | | | TYPE Type: sciatic block Indication: ultrasound guided Side: right | | | Block indication: Have received and accepted request from attending | | | surgeon to offer advanced acute pain management services to the | | | patient Location: Pre-Op, The patient was identified, the site | | | marked, full PARQ Done PROCEDURE Pt. Position: L lateral Monitors | | | used: EKG, NIBP and SpO2 Supplimental O2 used draped in sterile | | | fashion ULTRASOUND Spread characteristics: full spread around | | | nerve/plexus Image: printed and placed in patients chart Guidance: | | | Needle tip confirmed by hydrolocalization and Needle tip visualized | | | NEEDLE Needle type: Tuohy Gauge: 17 G Length: 9 cm Catheter at | | | skin depth 11 cm No, Aspiration was Negative for blood NERVE | | | STIMULATOR ASSESSMENT Ist attempt Complications: None Attending | | | physically present Attending: HELEN TOLENTINO I | | | Performed by Resident AMANDA HOLT Patient awake, | | | alert, conversant throughout procedure. Needle tip visualized | | | throughout procedure under ultrasound guidance. Local anesthetic | | | delivered in 5cc increments with negative aspiration. No complaints | | | or complications noted. See chart for images. | | + + + documented in this encounter Visit Diagnoses Not on filedocumented in this encounter Administered Medications + +--------+ + +------+------+ | Medication Order | MAR | Action | Dose | Rate | Site | | | Action | Date | | | | + +--------+ + +------+------+ | acetaminophen (TYLENOL) tablet | Given | 03/18/20 | 1,000 mg | | | | INTRAPROCEDURE PRN, Starting Niru | | 17 8:00 | | | | | 03/18/17 at 0800, Until Niru | | AM PDT | | | | | 03/18/17 at 1144 | | | | | | + +--------+ + +------+------+ +---+---+ | | | +---+---+ + +-------+ +------+---+---+ | bupivacaine (PF) | Given | 03/18/20 | 5 mL | | | | (MARCAINE,SENSORCAINE-MPF) | | 17 8:53 | | | | | injection INTRAPROCEDURE PRN, | | AM PDT | | | | | Starting Niru 03/18/17 at 0850, | | | | | | | Until Niru 03/18/17 at 1144 | | | | | | + +-------+ +------+---+---+ +-------+ +------+---+---+ | Given | 03/18/20 | 5 mL | | | | | 17 8:52 | | | | | | AM PDT | | | | +-------+ +------+---+---+ | Given | 03/18/20 | 5 mL | | | | | 17 8:37 | | | | | | AM PDT | | | | +-------+ +------+---+---+ +---+---+ | | | +---+---+ + +-------+ + +---+---+ | ceFAZolin (ANCEF) injection | Given | 03/18/20 | 2,000 mg | | | | intravenous, INTRAPROCEDURE PRN, | | 17 10:28 | | | | | Starting Niru 03/18/17 at 1028, | | AM PDT | | | | | Until Niru 03/18/17 at 1144 | | | | | | + +-------+ + +---+---+ +---+---+ | | | +---+---+ + +-------+ +--------+---+---+ | celecoxib (CELEBREX) capsule | Given | 03/18/20 | 400 mg | | | | INTRAPROCEDURE PRN, Starting Niru | | 17 8:00 | | | | | 03/18/17 at 0800, Until Niru | | AM PDT | | | | | 03/18/17 at 1144 | | | | | | + +-------+ +--------+---+---+ +---+---+ | | | +---+---+ + +-------+ +------+---+---+ | dexamethasone (DECADRON) | Given | 03/18/20 | 4 mg | | | | injection INTRAPROCEDURE PRN, | | 17 10:28 | | | | | Starting Niru 03/18/17 at 1028, | | AM PDT | | | | | Until Niru 03/18/17 at 1144 | | | | | | + +-------+ +------+---+---+ +---+---+ | | | +---+---+ + +-------+ +-------+---+---+ | ePHEDrine injection | Given | 03/18/20 | 10 mg | | | | intravenous, INTRAPROCEDURE PRN, | | 17 10:44 | | | | | Starting Niru 03/18/17 at 1044, | | AM PDT | | | | | Until Niru 03/18/17 at 1144 | | | | | | + +-------+ +-------+---+---+ +---+---+ | | | +---+---+ + +-------+ +--------+---+---+ | fentaNYL citrate (PF) | Given | 03/18/20 | 50 mcg | | | | (SUBLIMAZE) injection | | 17 10:40 | | | | | INTRAPROCEDURE PRN, Starting Niru | | AM PDT | | | | | 03/18/17 at 0825, Until Niru | | | | | | | 03/18/17 at 1144 | | | | | | + +-------+ +--------+---+---+ +-------+ +--------+---+---+ | Given | 03/18/20 | 50 mcg | | | | | 17 10:37 | | | | | | AM PDT | | | | +-------+ +--------+---+---+ | Given | 03/18/20 | 50 mcg | | | | | 17 8:40 | | | | | | AM PDT | | | | +-------+ +--------+---+---+ +---+---+ | | | +---+---+ + + [...] +---+---+---+ +---+---+ | | | +---+---+ + +-------+ +-------+---+---+ | lidocaine (XYLOCAINE MPF) 2 % | Given | 03/18/20 | 60 mg | | | | (20 mg/mL) injection | | 17 10:21 | | | | | INTRAPROCEDURE PRN, Starting Niru | | AM PDT | | | | | 03/18/17 at 1021, Until Niru | | | | | | | 03/18/17 at 1144 | | | | | | + +-------+ +-------+---+---+ +---+---+ | | | +---+---+ + +-------+ +------+---+---+ | midazolam (VERSED) injection | Given | 03/18/20 | 1 mg | | | | INTRAPROCEDURE PRN, Starting Niru | | 17 8:45 | | | | | 03/18/17 at 0825, Until Niru | | AM PDT | | | | | 03/18/17 at 1144 | | | | | | + +-------+ +------+---+---+ +-------+ +------+---+---+ | Given | 03/18/20 | 1 mg | | | | | 17 8:25 | | | | | | AM PDT | | | | +-------+ +------+---+---+ +---+---+ | | | +---+---+ + +-------+ +------+---+---+ | ondansetron (ZOFRAN) injection | Given | 03/18/20 | 4 mg | | | | INTRAPROCEDURE PRN, Starting Niru | | 17 11:18 | | | | | 03/18/17 at 1118, Until Niru | | AM PDT | | | | | 03/18/17 at 1144 | | | | | | + +-------+ +------+---+---+ +---+---+ | | | +---+---+ + +-------+ +--------+---+---+ | propofol INTRAPROCEDURE PRN, | Given | 03/18/20 | 200 mg | | | | Starting Niru 03/18/17 at 1021, | | 17 10:21 | | | | | Until Niru 03/18/17 at 1144 | | AM PDT | | | | + +-------+ +--------+---+---+ +---+---+ | | | +---+---+ documented in this encounter"
--- OUTSIDE RECORDS SUMMARY | ~2019-05-06 | XMS | Encounter Summary ---
Demographics + + + | Address | [address] | | | [place] [address] | + + + | Home Phone | | + + + | Preferred Language | Unknown | + + + | Marital Status | Single | + + + | Faith Affiliation | NON | + + + [...] + | Linden Farah | ECON | [address] | | | | | [place] | | | | | [address] | | + + + + + Care Team Providers + +------+ + | Care Linen Supervisor Name | Role | Phone | + [...] Farah | | 2016 | Encounter | [facility] [address] | | | | | [place] Mailcode: [id number] | [address] | | | | | [facility] | [place], [place] | | | | | and [place], | [address] | | | | | [facility] | [phone] | | | | | Floor [place], [place] | | | | | | [address] | | | | | | [phone] | | | +--------+ + + + [...]
--- OUTSIDE RECORDS SUMMARY | ~2019-05-06 | XMS | Encounter Summary ---
Demographics + + + | Address | [address] | | | [place] [address] | + + + | Home Phone [...] Author + + + | Author | [facility] | + + + | Organization | [facility] | + + + | Address | Unknown | + + + | Phone | Unavailable | + + + Support + + + + + | Name | Relationship | Address | Phone | + + + + + | Linden Farah | ECON | [address] | | | | | [place] | | | | | [address] | | + + + + + Care Team Providers + +------+ + | Care Psychologist Experimental Name | Role | Phone | + +------+ + | Nolan Pierre MD | PCP | | + +------+ + Encounter Details +--------+ + + + + | Date | Type | Department | Care Team | Description | +--------+ + + + + | 07/16/ | Compressor Mechanic Bus | [facility] | Michelle Shields, | | | 2017 | | Pain Center at | MD [address] | | | | | [facility] | [place], [place] | | | | | [address] | [address] | | | | | Mailcode: [id number] | [phone] | | | | | [facility] | | | | | | and [address], | | | | | | Building | | | | | | [place], [place] | | | | | | [address] | | | | | | [phone] | | | +--------+ + + + [...]
--- OUTSIDE RECORDS SUMMARY | ~2019-05-06 | XMS | Encounter Summary ---
Demographics + + + | Address | [address] | | | [place] [address] | + + + | Home Phone | | + + + | Preferred Language | Unknown | + + + | Marital Status | Single | + + + | Evangelical Affiliation | NON | + + + [...] + | Linden Farah | ECON | [address] | | | | | [place] | | | | | [address] | | + + + + + Care Team Providers + +------+ + | Care Oyster Washer Name | Role | Phone | + +------+ + | Nolan Pierre MD | PCP | | + +------+ + Encounter Details +--------+ + + + + | Date | Type | Department | Care Team | Description | +--------+ + + + + | 09/24/ | MyChart | [facility] | Michelle Shields, | RE: Lola Farah | | 2018 | Encounter | Pain Center at | [address] | | | | | [facility] | Ave [place], [place] | | | | | [address] | [address] | | | | | Mailcode: [facility] | [phone] | | | | | [facility] | | | | | | and Healing, | | | | | | Building | | | | | | Floor [place], [place] | | | | | | [address] | | | | | | [phone] | | | +--------+ + + + [...]
--- OUTSIDE RECORDS SUMMARY | ~2019-05-06 | XMS | Encounter Summary ---
Demographics + + + | Address | [address] | | | [place] [address] | + + + | Home Phone | | + + + | Preferred Language | Unknown | + + + | Marital Status | Single | + + + | Rastafari Affiliation | NON | + + + | Race | White | + + + | Ethnic Group | Not or | + + + Author + + + | Author | [facility] | + + + | Organization | [facility] | + + + | Address | Unknown | + + + | Phone | Unavailable | + + + Support + + + + + | Name | Relationship | Address | Phone | + + + + + | Linden Farah | ECON | [address] | | | | | [place] | | | | | [address] | | + + + + + Care Team Providers + +------+ + | Care Cart Driver Name | Role | Phone | + [...] [address] | | | | | [facility] | [address] [place], [place] | | | | | [address] | [address] | | | | | Mailcode: [facility] | [phone] | | | | | [facility] | | | | | | and Healing, | | | | | | Building | | | | | | Floor [place], [place] | | | | | | [address] | | | | | | [phone] | | | +--------+ + + + [...]
--- OUTSIDE RECORDS SUMMARY | ~2019-05-06 | XMS | Encounter Summary ---
Demographics + + + | Address | [address] | | | [place] [address] | + + + | Home Phone [...] + | Linden Farah | ECON | [address] | | | | | [place] | | | | | [address] | | + + + + + Care Team Providers + +------+ + | Care Quality Assurance Tech Name | Role | Phone | + [...] [address] | | | | | [facility] | [place], [place] | | | | | [address] | [address] | | | | | Mailcode: CH15P | [phone] | | | | | [facility] | | | | | | [place], | | | | | | Building | | | | | | [place], [place] | | | | | | [address] | | | | | | [phone] | | | +--------+ + + + [...]
--- OUTSIDE RECORDS SUMMARY | ~2019-05-06 | XMS | Encounter Summary ---
Demographics + + + | Address | [address] | | | [place] [address] | + + + | Home Phone | | + + + | Preferred Language | Unknown | + + + | Marital Status | Single | + + + | Sabianism Affiliation | NON | + + + | Race | White | + + + | Ethnic Group | Not or | + + + Author + + + | Author | [facility] | + + + | Organization | [facility] | + + + | Address | Unknown | + + + | Phone | Unavailable | + + + Support + + + + + | Name | Relationship | Address | Phone | + + + + + | Linden Farah | ECON | [address] | | | | | [place] | | | | | [address] | | + + + + + Care Team Providers + +------+ + | Care Supervisor Word Processing Name | Role | Phone | + [...] + + | 09/09/ | MyChart | [facility] | Michelle Shields, | RE: Lola Farah | | 2018 | Encounter | Pain Center at | MD [address] | | | | | [facility] | Ave [facility] [place] | | | | | [address] | [address] | | | | | Mailcode: CH15P | [phone] | | | | | [facility] | | | | | | and [place], | | | | | | | | | | | | Floor [place], [place] | | | | | | [address] | | | | | | [phone] | | | +--------+ + + + [...]
--- OUTSIDE RECORDS SUMMARY | ~2019-05-06 | XMS | Encounter Summary ---
Demographics + + + | Address | [address] | | | [place] [address] | + + + | Home Phone [...] + | Linden Farah | ECON | [address] | | | | | [place] | | | | | [address] | | + + + + + Care Team Providers + +------+ + | Care Batteryman Name | Role | Phone | + [...] [address] | | | | | [facility] | Ave [place], [place] | | | | | [address] | [address] | | | | | Mailcode: [facility] | [phone] | | | | | [facility] | | | | | | and Healing, | | | | | | Building | | | | | | Floor [place], [place] | | | | | | [address] | | | | | | [phone] | | | +--------+ + + + [...]
--- OUTSIDE RECORDS SUMMARY | ~2019-05-06 | XMS | Encounter Summary ---
Demographics + + + | Address | [address] | | | [place] [address] | + + + | Home Phone [...] + | Linden Farah | ECON | [address] | | | | | [place] | | | | | [address] | | + + + + + Care Team Providers + +------+ + | Care Set Up Mechanic Name | Role | Phone | + +------+ + | Nolan Pierre MD | PCP | | + +------+ + Encounter Details +--------+ + + + + | Date | Type | Department | Care Team | Description | +--------+ + + + + | 05/03/ | MyChart | Orthopaedics at | Gage Nieto | RE: Lola Farah | | 2016 | Encounter | [facility] [address] | | | | | [place] Mailcode: [id number] | [address] | | | | | [facility] | [place], [place] | | | | | and [place], | [address] | | | | | [facility] | [phone] | | | | | Floor [place], [place] | | | | | | [address] | | | | | | [phone] | | | +--------+ + + + [...]
--- OUTSIDE RECORDS SUMMARY | ~2019-05-06 | XMS | Encounter Summary ---
Demographics + + + | Address | [address] | | | [place] [address] | + + + | Home Phone [...] + | Linden Farah | ECON | [address] | | | | | [place] | | | | | [address] | | + + + + + Care Team Providers + +------+ + | Care Market Research Specialist Name | Role | Phone | + [...] Farah- | | 2017 | Encounter | [facility] [address] PA[address] | Prescription | | | | Ave Mailcode: [id number] | [address] | refills | | | | [facility] | [place], [place] | | | | | [place], | [address] | | | | | [facility] | [phone] | | | | | Floor [place], [place] | | | | | | [address] | | | | | | [phone] | | | +--------+ + + + [...]
--- OUTSIDE RECORDS SUMMARY | ~2019-05-06 | XMS | Encounter Summary ---
Demographics + + + | Address | [address] | | | [place] [address] | + + + | Home Phone [...] + + + | Author | [facility] | + + + | Organization | [facility] | + + + | Address | Unknown | + + + | Phone | Unavailable | + + + Support + + + + + | Name | Relationship | Address | Phone | + + + + + | Linden Farah | ECON | [address] | | | | | [place] | | | | | [address] | | + + + + + Care Team Providers + +------+ + | Care Bisque Ware Dipper Name | Role | Phone | [...] + + | 03/18/ | Hospital | [facility] [address] | Oscar Eng, | | | 2017 | Encounter | [address] | [address] | | | | | [address]/[address] | [place], [place] | | | | | [place], | [address] | | | | | [place] [address] | [phone] | | | | | [phone] | | | +--------+ + + + [...] medication was given at: None given at [facility] ? Please follow your Doctor s [...] | | | | | | EQUIPMENT CO) | | | | | | + + + +---------+ + + | MEDICAL SUPPLY, | | 1 each | 0 | 03/18/20 | | | MISCELLANEOUS (RX | | | | 17 | 7 | | DURABLE MEDICAL | | | | | | | EQUIPMENT CO) | | | | | | + [...] Eng MD 03/24/2017 9:28 PM [facility] | | | [facility] DEPARTMENT OF ORTHOPAEDICS & REHABILITATION | | | OPERATIVE REPORT | | | Patient Name: Lola Farah Date of : 1955 Medical | | | Record Number: [id number] Contract Serial Number:: [id number] Report | | | Author: Oscar Eng MD Procedure Date: 03/18/2017 | | | Attending Physician: 1Carine Eng MD Retail Seasonal Specialist(s): 1. | | | Gage [place] Preoperative [...] | | | proximally with #5 fiberwire Narka sutures. Then distally the | | | tendon sheath was incised exposing the distal tendon. This was | | | similarly captured with Narka sutures. A tendon passer was used | [...] | + + + + + | [facility] | [address] | [place] [address] | | | SERVICES, | [address] [...] | + + + + + | [facility] | [address] | [place] [address] | | | SERVICES, | [address] [...] (H) | 70 - 99 mg/dL | [facility] - | | | GLUCOSE, | | [...] MICHELLE | [address] | [place], [place] | | | [facility] | [address] | [address] | | | TESTS | | | [...] PDT | | | | | Starting [facility] 03/18/17 at 0945, | | | | | | | Until [facility] 03/18/17 at 1254 | | | | | | + +---------+ +---+---+---+ +---+---+ | | | +---+---+ documented in this encounter
--- OUTSIDE RECORDS SUMMARY | ~2019-05-06 | XMS | Encounter Summary ---
Demographics + + + | Address | [address] | | | [place] [address] | + + + | Home Phone | | + + + | Preferred Language | Unknown | + + + | Marital Status | Single | + + + | Cheondoism Affiliation | NON | + + + [...] + | Linden Farah | ECON | [address] | | | | | [place] | | | | | [address] | | + + + + + Care Team Providers + +------+ + | Care Bowl Attendant Name | Role | Phone | + [...] | | | | | rupture, | [address] | [address] | | | | | right, | [address] | [address] | | | | | subsequent | [place], [place] | [address] | | | | | encounter | [address] | [place], [place] | | | | | Procedures | Phone: | [address] Phone: | | | | | PHYSICAL | [phone] | [phone] | | | | | THERAPY | Fax: | Fax: | | | | | REFERRAL | [phone] | [phone] | +--------+--------+ + + + + Encounter [...] | | | Ave Mailcode: CH12A | [place], [place] | | | | | [place] for [facility] | [address] | | | | | and Healing, | [phone] | | | | | | | | | | | Floor [place], [place] | | | | | | [address] | | | | | | [phone] | | | +--------+ + + + [...]
--- OUTSIDE RECORDS SUMMARY | ~2019-05-06 | XMS | Encounter Summary ---
Demographics + + + | Address | [address] | | | [place] [address] | + + + | Home Phone | | + + + | Preferred Language | Unknown | + + + | Marital Status | Single | + + + | Orthodox Affiliation | NON | + + + | Race | White | + + + | Ethnic Group | Not or | + + + Author + + + | Author | [facility] | + + + | Organization | [facility] | + + + | Address | Unknown | + + + | Phone | Unavailable | + + + Support + + + + + | Name | Relationship | Address | Phone | + + + + + | Linden Farah | ECON | [address] | | | | | [place] | | | | | [address] | | + + + + + Care Team Providers + +------+ + | Care Group Manager Name | Role | Phone | [...] | nerve pain | [address] | [place], [place] | | | | | Procedures | [place] | [address] | | | | | CONSULT [place] | [address] | Phone: | | | | | PAIN | Phone: | [phone] | | | | | MANAGEMENT | [phone] | Fax: | | | | | | Fax: | [phone] | | | | | | [phone] | | +--------+---------+ + + + + [...] | | | | | Procedures | [place], [place] | | | | | | CONSULT TO | [address] | | | | | | PAIN | Phone: | | | | | | MANAGEMENT | [phone] | | | | | | | Fax: | | | | | | | [phone] | | +--------+--------+ + + + + [...] Ave | | | | | | [place], [place] | [place], [place] | | | | | | [address] | [address] | | | | | | Phone: | Phone: | | | | | | [phone] | [phone] | | | | | | Fax: | Fax: | | | | | | [phone] | [phone] | +--------+--------+ + + + + Encounter Details +--------+---------+ + + + | Date | Type | Department | Care Team | Description | +--------+---------+ + + + | 06/24/ | Office | [facility] | Michelle Shields, | Right sciatic nerve | | 2017 | Visit | Pain Center at | MD [address] | pain (Primary Dx) | | | | [facility] | [address] [facility] [place] | | | | | [address] | [address] | | | | | Mailcode: CH15P | [phone] | | | | | [facility] | | | | | | and Healing, | | | | | | | | | | | | [place], [place] | | | | | | [address] | | | | | | [phone] | | | +--------+---------+ + + + [...] [facility] Working [facility] Acupuncture [facility] Appointments are available Wednesday thru Wednesday: 8:30 am - 8 pm, Wednesday 9 am - 4 pm and Wednesday: 9 am - 3 pm To make an appointment, call [phone]. Sliding scale is $15 - $35 per treatment.* You d ecide what you can afford. [facility] Accupuncture Neighborhoods: [place] [address] www.[employer] Sliding Scale Pins and Hobbs [facility] Acupuncture [address], [facility] Sliding Scale [facility] Medicine Contact Us [address] [place] [address] : : Fax Group and individual accupuncture, massage [facility] Address: [address] [place] [address] [facility]uncture Berkley Peralta LAc, [facility] [address] [place] [address] $15-40, sliding scale Also provide herbal treatment [...] others may occur. Call your doctor for [facility] advice about side effects. You may report side effects to FDA at 4-485-QGJ-2478. What other drugs will affect nortriptyline? Taking [...] or dangerous effects. This includes prescription and crwt-fhg-kljmcut medicines, vitamins, and herbal products. No t [...] to ensure that the information provided by [employer]. ( '[employer]') is accurate, up-to-date, and complete, but no guarantee is made to that effect. Dr jaqueline information contained herein may be time sensitive. [employer] information has been compiled for use by healthcare practitioners and consumers in the [place] and therefore [employer] does not warrant that uses outside of the [place] are appropriate, unless specifically indicated otherwise. [employer] drug information does not endorse drugs, diagnose patients or recommend therapy. [employer] drug information is an informational resource designed [...] effective or appropriate for any given patient. [employer] does not assume any respon sibility for any aspect of healthcare administered with the aid of information [employer] provid es. The information contained herein is not intended to cover all possible uses, directions, precautions, warnings, drug interactions, allergic reactions, or adverse effects. If you barreto ve questions about the drugs you are taking, check with your doctor, nurse or pharmacist. Copyright 1468-9972 [employer]. Version: .. Revision date: 01/15/2016. Care instructions adapted under license by [employer] [facility] [employer]. If you have questions about a medical condition or this instruction, always ask your healthcare profchin peters. [employer] disclaims any warranty or liability for your [...] may occur. Call your doctor for [facility] advice about side effects. You may report side effects to FDA at 7-517-IZL-9146. What other drugs will affect duloxetine? Many drugs can interact with duloxetine. Not all possible interactions are listed here. Tel l your doctor about all your current medicines and any you start or stop using, especially: any other antidepressant; cimetidine; George's wort; theophylline; tryptophan (sometimes called L-tryptophan); an [...] interact with duloxetine. This includes prescription and xuzi-mlj-tcqmypx medicines, vitamins, and herbal products. Give a [...] to ensure that the information provided by [employer]. ( '[employer]') is accurate, up-to-date, and complete, but no guarantee is made to that effect. Dr jaqueline information contained herein may be time sensitive. [employer] information has been compiled for use by healthcare practitioners and consumers in the [place] and therefore [employer] does not warrant that uses outside of the [place] are appropriate, unless specifically indicated otherwise. [employer] drug information does not endorse drugs, diagnose patients or recommend therapy. [employer] drug information is an informational resource designed [...] with your doctor, nurse or pharmacist. Copyright 3903-9809 [employer] Version: 11.. Revision date: 01/04/2017. Care instructions adapted under license by [facility] [place]. If you have questions about a medical condition or this instruction, always ask your healthcare ale peters. [employer] disclaims any warranty or liability for your use of this info rmation. documented in this encounter Progress Notes Michelle Shields MD - 06/24/2017 7:30 AM PSTFormatting of this note might be different f rom the original. Date: 07/03/2017 was referred for pain management consultation by Oscar Eng MD [address] [place] [address] Reason for consult: Sciatic-distribution pain Chief Complaint [...] lives in a single family home in [place] [facility]. He is living now in [place] , while recovering from his surgery, with [...] is scanned into the media section of [employer]. Past Medical History: Diagnosis Date Numbness and [...] initiate some acupunctu re either here at [facility] or closer to Lola's home in [place] [facility] [place]. We also encouraged obt aining the EMG/NCV for further information. Recommendation/Plan: 1.) We will start nortriptyline at 10-20 mg per night. 2.) We could also start Cymbalta or duloxetine at 20 mg per day. 3.) We do want to see the results of the nerve studies. 4.) We will trial some acupuncture. 5.) We will keep the gabapentin going. Michelle Shields MD [facility] documented in this encounter Plan of Treatment Not on filedocumented as of this encounter Visit Diagnoses + + | Diagnosis | + + | Right sciatic nerve pain - Primary | + + documented in this encounter
--- OUTSIDE RECORDS SUMMARY | ~2019-05-06 | XMS | Encounter Summary ---
Demographics + + + | Address | [address] | | | [place] [address] | + + + | Home Phone [...] Author + + + | Author | [facility] | + + + | Organization | [facility] | + + + | Address | Unknown | + + + | Phone | Unavailable | + + + Support + + + + + | Name | Relationship | Address | Phone | + + + + + | Linden Farah | ECON | [address] | | | | | [place] | | | | | [address] | | + + + + + Care Team Providers + +------+ + | Care Patient Financial Services Manager Name | Role | Phone | [...] [address] | | | | | [facility] | Ave [place], [place] | | | | | [address] | [address] | | | | | Mailcode: [facility] | [phone] | | | | | [facility] | | | | | | and Healing, | | | | | | Building | | | | | | Floor [place], [place] | | | | | | [address] | | | | | | [phone] | | | +--------+ + + + [...]
--- OUTSIDE RECORDS SUMMARY | ~2019-05-06 | XMS | Encounter Summary ---
Demographics + + + | Address | [address] | | | [place] [address] | + + + | Home Phone [...] + | Linden Farah | ECON | [address] | | | | | [place] | | | | | [address] | | + + + + + Care Team Providers + +------+ + | Care Cloud Systems Architect Name | Role | Phone | + +------+ + | Nolan Pierre MD | PCP | | + +------+ + Encounter Details +--------+ + + + + | Date | Type | Department | Care Team | Description | +--------+ + + + + | 03/18/ | Procedure | 6A Intra Op [facility] | | | | 2016 | Pass | [facility] | | | | | | Admitting Desk | | | | | | Located on the 9th | | | | | | floor [address] [facility] | | | | | | [address] | | | | | | [place], [place] | | | | | | [address] | | | +--------+ + + + [...]
--- OUTSIDE RECORDS SUMMARY | ~2019-05-06 | XMS | Encounter Summary ---
Demographics + + + | Address | [address] | | | [place] [address] | + + + | Home Phone | | + + + | Preferred Language | Unknown | + + + | Marital Status | Single | + + + | Baptist Affiliation | NON | + + + [...] + | Linden Farah | ECON | [address] | | | | | [place] | | | | | [address] | | + + + + + Care Team Providers + +------+ + | Care Buffer Operator Name | Role | Phone | [...] | | [facility] | Ave [place], [place] | | | | | [address] | [address] | | | | | Mailcode: [facility] | [phone] | | | | | [facility] | | | | | | and Healing, | | | | | | Building | | | | | | Floor [place], [place] | | | | | | [address] | | | | | | [phone] | | | +--------+ + + + [...]
--- OUTSIDE RECORDS SUMMARY | ~2019-05-06 | XMS | Encounter Summary ---
Demographics + + + | Address | [address] | | | [place] [address] | + + + | Home Phone [...] + + + | Author | [facility] | + + + | Organization | [facility] | + + + | Address | Unknown | + + + | Phone | Unavailable | + + + Support + + + + + | Name | Relationship | Address | Phone | + + + + + | Linden Farah | ECON | [address] | | | | | [place] | | | | | [address] | | + + + + + Care Team Providers + +------+ + | Care Anesthesia Assistant Name | Role | Phone | + [...] | Encounter | Pain Center at | [address] | Waiting for reply to | | | | [facility] | Ave [place], [place] | email | | | | [address] | [address] | | | | | Mailcode: CH15P | [phone] | | | | | [facility] | | | | | | and Healing, | | | | | | Building | | | | | | Floor [place], [place] | | | | | | [address] | | | | | | [phone] | | | +--------+ + + + [...]
--- OUTSIDE RECORDS SUMMARY | ~2019-05-06 | XMS | Encounter Summary ---
Demographics + + + | Address | [address] | | | [place] [address] | + + + | Home Phone [...] + | Linden Farah | ECON | [address] | | | | | [place] | | | | | [address] | | + + + + + Care Team Providers + +------+ + | Care Truck Shop Mechanic Name | Role | Phone | [...] | Chronic | [place], | [address] | | | | gy | postoperativ | [address] | | | | | e pain | [facility] | Mailcode: | | | | | Procedures | [address] | [facility] | | | | | EMG/NERVE | [place], [place] | for Health | | | | | CONDUCTION | [address] | and Healing, | | | | | STUDIES,ADUL | Phone: | Building 1, | | | | | T - | [phone] | 8th Floor | | | | | NEUROLOGY | Fax: | [place], [place] | | | | | DE NEEDLE | [phone] | [address] | | | | | ELECTROMYOGR | | Phone: | | | | | APHY, EA | | [phone] | | | | | EXTREM, LTD | | Fax: | | | | | [place] NEEDLE | | [phone] | | | | | ELECTROMYOGR | | | | | | | APHY, EA | | | | | | | EXTREM, | | | | | | | COMPLETE DE | | | | | | | MOTOR&/SENS | | | | | | | 1-2 NRV | | | | | | | CNDJ TST DE | | | | | | | MOTOR&/SENS | | | | | | | 3-4 NRV | | | | | | | CNDJ TST DE | | | | | | | MOTOR&/SENS | | | | | | | 5-6 NRV | | | | | | | CNDJ TST DE | | | | | | | [...] [address] | | | | | [facility] | [facility] | | | | | [address] | [place], [place] | | | | | Mailcode: CH15P | [address] | | | | | [place] for [facility] | [phone] | | | | | and Healing, | | | | | | | | | | | | [place], [place] | | | | | | [address] | | | | | | [phone] | | | +--------+ + + + [...] | + + + | Patient Name: Lloa Farah Date of : 1955 Medical | [facility], | | Record Number: [id number] Date of Test: 07/28/2017 Place of | POINT OF CARE | | Service: [facility] (83) - [address] Department: [id number] EMG [facility] Nerve | TESTS | | Conduction [...] | | Suggested Modifier: None Suggested CPT: 03800 7-8 Nerve Conduction | | | studies 85912 EMG -Each Extremity, Completed (>5 Muscles) w/NCS, [...] + + | [facility] | [address] [facility] | [place] [address] | | | OF CARE TESTS | | | | + + + + + documented in this encounter Visit Diagnoses + + | Diagnosis | + + | Chronic postoperative pain - Primary Other chronic postoperative pain | + + documented in this encounter"
--- OUTSIDE RECORDS SUMMARY | ~2019-05-06 | XMS | Clinical Summary ---
Demographics + + + | Address | [address] | | | [place] [address] | + + + | Home Phone [...] Author + + + | Author | NON REVENUE LOCATIONS | + + + | Organization | NON REVENUE LOCATIONS | + + + | Address | Unknown | + + + | Phone | Unavailable | + + + Support + + + + + | Name | Relationship | Address | Phone | + + + + + | Linden Farah | ECON | [address] | | | | | [place], [place] | | | | | [address] | | + + + + + Care Team Providers + +------+ + | Care Precise Winder Name | Role | Phone | + +------+ + | Nolan Pierre MD | PCP | | + +------+ + Source Comments KRISHNA is fully live on both [facility] Ambulatory and [facility] InPatient.[facility] Allergies No Known Allergies Medications + + + +---------+------+------+-------+ | Medication | Sig | Dispensed | Refills | Star | End | Statu | | | | | | t | Date | s | | | | | | Date | | | + + + +---------+------+------+-------+ | | Take 100 mg by mouth | | 0 | 01/1 | | Activ | | losartan-hydrochloro | once daily. | | | /20 | | e | | thiazide 100-25 mg | | | | 12 | | | | oral tablet | | | | | | | + + + +---------+------+------+-------+ | potassium chloride | Take 20 mEq by mouth | | 1 | 08/2 | | Activ | | SR 20 mEq oral | once daily. | | | 0/20 | | e | | tablet,ER | | | | 17 | | | | particles/crystals | | | | | | | + + + +---------+------+------+-------+ | simvastatin 40 mg | Take 40 mg by mouth | | 1 | 08/2 | | Activ | | oral tablet | once daily. | | | 0/20 | | e | | | | | | 17 | | | + + + +---------+------+------+-------+ | verapamil SR 12 hr | Take 240 mg by mouth | | 1 | 08/2 | | Activ | | 240 mg oral tablet | once. | | | 0/20 | | e | | extended release | | | | 17 | | | + + + +---------+------+------+-------+ | LOSARTAN POTASSIUM | Take by mouth. | | 0 | | | Activ | | (LOSARTAN ORAL) | | | | | | e | + + + +---------+------+------+-------+ | aspirin 325 mg | Take 325 mg by mouth | | 0 | | | Activ | | oral tablet | once daily. | | | | | e | + + + +---------+------+------+-------+ | gabapentin 600 mg | Take 2 tablets by | 168 | 3 | 12/2 | | Activ | | oral tablet | mouth three times | tablet | | 0/20 | | e | | | daily. | | | 17 | | | + + + +---------+------+------+-------+ | nortriptyline 10 | Take 1 capsule by | 30 | 3 | 12/2 | | Activ | | mg oral | mouth once daily at | capsule | | 8/20 | | e | | capsuleIndications: | bedtime. | | | 17 | | | | Neuropathic | Indications: | | | | | | | | Neuropathic | | | | | | + + + +---------+------+------+-------+ | oxyCODONE | Take 1 tablet by | 60 | 0 | 12/2 | | Activ | | (immediate release) | mouth once daily as | tablet | | 8/20 | | e | | 5 mg oral tablet | needed (for pain.). | | | 17 | | | + + + +---------+------+------+-------+ | oxyCODONE | Take 1 tablet by | 30 | 0 | 01/0 | | Activ | | (immediate release) | mouth once daily. | tablet | | 4/20 | | e | | 5 mg oral | Indications: | | | 18 | | | | tabletIndications: | Neuropathic pain | | | | | | | Neuropathic pain | | | | | | | + + + +---------+------+------+-------+ | nortriptyline 25 | Take 2 capsules by | 60 | 3 | 01/1 | | Activ | | mg oral capsule | mouth once daily at | capsule | | 9/20 | | e | | | bedtime. | | | 18 | | | + + + +---------+------+------+-------+ Active Problems + + + | Problem | Noted Date | + + + | Cervical radiculopathy | 11/07/2016 | + + + | Degenerative disc disease, cervical | 11/07/2016 | + + + | Foraminal stenosis of cervical region | 11/07/2016 | + + + | Impaired mobility and ADLs | 04/29/2016 | + + + | Pain in right hand | 04/29/2016 | + + + | Weakness of right hand | 04/29/2016 | + + + | Glossitis | 07/08/2011 | + + + Family History + + +------+ + | Medical History | Relation | Name | Comments | + + +------+ + | Emphysema | Father | | | + + +------+ + | Heart Disease | Mother | | | + + +------+ + + +------+ + + | Relation | Name | Status | Comments | + +------+ + + | Father | | | | + +------+ + + | Mother | | | | + +------+ + + Social [...] | | + + + + + Plan of Treatment + + + + + | Health Maintenance | Due Date | Last Done | Comments | + + + + + | Influenza (Flu) | | 03/14/2017, 03/10/2016, | | | vaccination (#1) | 9 | 02/13/2015, Additional history | | | | | exists | | + + + + + | Pneumococcal | Aged Out | 04/01/2009 | No longer eligible | | vaccination | | | based on patient's | | | | | age to complete this | | | | | topic | + + + + + Results [...] + +------+ | MODA | MODA | xxxxxxxxx | 06/28/19 | [phone] | [address] | PPO | | | [address] | | [address] | [address] | [id number] | | | | [place] | | sent | | [place], | | | | | | | | [place] [address] | | +-------+--------+ +--------+ + +------+ + +--------+ +--------+ + + | Guarantor Name | Accoun | Relation to | Date | Phone | Billing Address | | | t Type | Patient | of | | | | | | | | | | + +--------+ +--------+ + + | Lola Farah | Person | Self [birth year] | [address] | | | al/Fam | | 1956 | [phone] | [address] [place], [place] | | | ever | | | 1 (Home) | [address] | + +--------+ +--------+ + + Advance Directives + + + + + | Code Status | Date | Date | Comments | | | Activated | Inactivated | | + + + + + | Full Code | 03/18/2017 | 03/18/2017 | | | | 7:11 AM | 12:54 PM | | + + + + +
--- OUTSIDE RECORDS SUMMARY | ~2019-05-06 | XMS | Encounter Summary ---
Demographics + + + | Address | [address] | | | [place] [address] | + + + | Home Phone [...] Author + + + | Author | [facility] | + + + | Organization | [facility] | + + + | Address | Unknown | + + + | Phone | Unavailable | + + + Support + + + + + | Name | Relationship | Address | Phone | + + + + + | Linden Farah | ECON | [address] | | | | | [place] | | | | | [address] | | + + + + + Care Team Providers + +------+ + | Care Instructional Coordinator Name | Role | Phone | [...] Farah | | 2016 | Encounter | [facility] [address] PA-[address] | | | | | Kimberlee Mailcode: [id number] | Jonny Figueroa | | | | | [facility] | [place], [place] | | | | | and [place], | [address] | | | | | [facility] | [phone] | | | | | Floor [place], [place] | | | | | | [address] | | | | | | [phone] | | | +--------+ + + + [...]
--- OUTSIDE RECORDS SUMMARY | ~2019-05-06 | XMS | Encounter Summary ---
Demographics + + + | Address | [address] | | | [place] [address] | + + + | Home Phone [...] Author + + + | Author | [facility] | + + + | Organization | [facility] | + + + | Address | Unknown | + + + | Phone | Unavailable | + + + Support + + + + + | Name | Relationship | Address | Phone | + + + + + | Linden Farah | ECON | [address] | | | | | [place] | | | | | [address] | | + + + + + Care Team Providers + +------+ + | Care Labview Programmer Name | Role | Phone | + [...] Farah | | 2016 | Encounter | [facility] [address] PA-[address] | | | | | [place] Mailcode: [id number] | [address]ny Figueroa | | | | | [facility] | [place], [place] | | | | | and [place], | [address] | | | | | [facility] | [phone] | | | | | Floor [place], [place] | | | | | | [address] | | | | | | [phone] | | | +--------+ + + + [...]
--- OUTSIDE RECORDS SUMMARY | ~2019-05-06 | XMS | Encounter Summary ---
Demographics + + + | Address | [address] | | | [place] [address] | + + + | Home Phone | | + + + | Preferred Language | Unknown | + + + | Marital Status | Single | + + + | Zoroastrianism Affiliation | NON | + + + [...] + | Linden Farah | ECON | [address] | | | | | [place] | | | | | [address] | | + + + + + Care Team Providers + +------+ + | Care Micromatic Hone Operator Name | Role | Phone | [...] Refill Request | | 2017 | | [facility] [address] | ANJEL Antonio [address] | | | | | Kimberlee Mailcode: [id number] | [facility] | | | | | [facility] | [place], [place] | | | | | and [place], | [address] | | | | | [facility] | [phone] | | | | | Floor [place], [place] | | | | | | [address] | | | | | | [phone] | | | +--------+--------+ + + + [...]
--- OUTSIDE RECORDS SUMMARY | ~2019-05-06 | XMS | Clinical Summary ---
Demographics + + + | Address | [address] | | | [place] [address] | + + + | Home Phone | | + + + | Preferred Language | Unknown | + + + | Marital Status | Single | + + + | Muslim Affiliation | NON | + + + [...] + | Linden Farah | ECON | [address] | | | | | [place], [place] | | | | | [address] | | + + + + + Care Team Providers + +------+ + | Care Technical Services Representative Name | Role | Phone | + +------+ + | Nolan Pierre MD | PCP | | + +------+ + Source Comments KRISHNA is fully live on both [facility] and [facility] Allergies No Known Allergies Medications + + [...] AFFINI | | 17-Pre | 4 | [address] | | | | [place] | | sent | | [place], | | | | | | | | [place] [address] | | +-------+--------+ +--------+ + +------+ + +--------+ +--------+ + + | Guarantor Name | Accoun | Relation to | Date | Phone | Billing Address | | | t Type | Patient | of | | | | | | | | | | + +--------+ +--------+ + + | Lola Farah | Person | Self [birth year] | [address] | | | al/Fam | | 1956 | [phone] | [address] [place], [place] | | | ever | | | 1 (Home) | [address] | + +--------+ +--------+ + + Advance [...]
--- OUTSIDE RECORDS SUMMARY | ~2019-05-06 | XMS | Encounter Summary ---
Demographics + + + | Address | [address] | | | [place] [address] | + + + | Home Phone [...] + | Linden Farah | ECON | [address] | | | | | [place] | | | | | [address] | | + + + + + Care Team Providers + +------+ + | Care Insurance Administrative Assistant Name | Role | Phone | + +------+ + | Nolan Pierre MD | PCP | | + +------+ + Encounter Details +--------+ + + + + | Date | Type | Department | Care Team | Description | +--------+ + + + + | 07/16/ | Sales Project Manager | [facility] | Michelle Shields, | | | 2017 | | [facility] at | MD [address] | | | | | [facility] | [place], [place] | | | | | [address] | [address] | | | | | Mailcode: [id number] | [phone] | | | | | [facility] | | | | | | and [place], | | | | | | Building | | | | | | [place], [place] | | | | | | [address] | | | | | | [phone] | | | +--------+ + + + [...]
--- OUTSIDE RECORDS SUMMARY | ~2019-05-06 | XMS | Encounter Summary ---
Demographics + + + | Address | [address] | | | [place] [address] | + + + | Home Phone [...] + | Linden Farah | ECON | [address] | | | | | [place] | | | | | [address] | | + + + + + Care Team Providers + +------+ + | Care Supervisor Packing Room Name | Role | Phone | + [...] + + | 06/25/ | Telephone | [facility] | Michelle Shields, | Prescription | | 2017 | | Pain Center at | MD [address] | | | | | [facility] | [place], [place] | | | | | [address] | [address] | | | | | Mailcode: [facility] | [phone] | | | | | [facility] | | | | | | and Healing, | | | | | | Building , | | | | | | [facility] [place] | | | | | | [address] | | | | | | [phone] | | | +--------+ + + + [...]
--- OUTSIDE RECORDS SUMMARY | ~2019-05-06 | XMS | Encounter Summary ---
Demographics + + + | Address | [address] | | | [place] [address] | + + + | Home Phone | | + + + | Preferred Language | Unknown | + + + | Marital Status | Single | + + + | Mosque Affiliation | NON | + + + [...] + | Linden Farah | ECON | [address] | | | | | [place] | | | | | [address] | | + + + + + Care Team Providers + +------+ + | Care Hospital Nurse Name | Role | Phone | + [...] Farah | | 2016 | Encounter | [facility] [address] | | | | | [place] Mailcode: [id number] | Jonny Figueroa | | | | | [facility] | [place], [place] | | | | | and [place], | [address] | | | | | [facility] | [phone] | | | | | Floor [place], [place] | | | | | | [address] | | | | | | [phone] | | | +--------+ + + + [...]
--- OUTSIDE RECORDS SUMMARY | ~2019-05-06 | XMS | Clinical Summary ---
Demographics + + + | Address | [address] | | | [place] [address] | + + + | Home Phone | | + + + | Preferred Language | Unknown | + + + | Marital Status | Single | + + + | Denominational Affiliation | Unknown | + + + | Race | Unknown | + + + | Ethnic Group | Unknown | + + + Author + + + | Author | [facility] | | | and [place] | + + + | Organization | [facility] | | | and [...] Providers + +------+ + | Care Airport Operations Manager Name | Role | Phone | [...] + +------+ | MODA | MODA | [id number] | 06/28/19 | [phone] | [address] | PPO | | | AFFINI | | 16-Pre | 9 | [address] | | | | [place] | | sent | | [place], | | | | [place] | | | | [place] [address] | | | | STONE | | [...] Person | Self | [birth year] | [address] | | | al/Fam | | 1956 | [phone] | [place] | | | ever | | | 1 (Home) | [address] | + +--------+ +--------+ + + Advance Directives Patient has advance care planning documents on file. For more information, please contact:[facility] [address]
--- OUTSIDE RECORDS SUMMARY | ~2019-05-06 | XMS | Encounter Summary ---
Demographics + + + | Address | [address] | | | [place] [address] | + + + | Home Phone [...] + | Linden Farah | ECON | [address] | | | | | [place] | | | | | [address] | | + + + + + Care Team Providers + +------+ + | Care Mail Handler Assistant Name | Role | Phone | [...] Farah | | 2016 | Encounter | [facility] [address] PA[address] | | | | | Kimber[place] Mailcode: [id number] | Jonny Figueroa | | | | | [facility] | [place], [place] | | | | | and [place], | [address] | | | | | [facility] | [phone] | | | | | Floor [place], [place] | | | | | | [address] | | | | | | [phone] | | | +--------+ + + + [...]
--- OUTSIDE RECORDS SUMMARY | ~2019-05-06 | XMS | Encounter Summary ---
Demographics + + + | Address | [address] | | | [place] [address] | + + + | Home Phone [...] + + + | Author | [facility] | + + + | Organization | [facility] | + + + | Address | Unknown | + + + | Phone | Unavailable | + + + Support + + + + + | Name | Relationship | Address | Phone | + + + + + | Linden Farah | ECON | [address] | | | | | [place] | | | | | [address] | | + + + + + Care Team Providers + +------+ + | Care Research And Insights Executive Name | Role | Phone | + [...] | Orthopedics | Diagnoses | [facility] | [place], | | | | | Achilles | Epic Dept | Oscar Brock MD | | | | | rupture, | | [address] | | | | | right, | | Ave | | | | | initial | | [place], [place] | | | | | encounter | | [address] | | | | | Procedures | | Phone: | | | | | REQUEST TO | | [phone] | | | | | SURGERY | | Fax: | | | | | TRANSMISSION SPECIALIST | | [phone] | | | | | [place] REPAIR | | | | | | | ACHILLES | | | | | | | TENDON,PRIMA | | | | | | | R[place] | | | | | | | [...] | | 2017 | Visit | [facility] [address] | ANJEL Antonio [address] [facility] | Achilles tendon, | | | | [address] | [address] | subsequent encounter | | | | [address] | [place], [place] | (Primary Dx) | | | | [place], [place] | [address] | | | | | [address] | [phone] | | | | | [phone] | | | +--------+---------+ + + + [...] He is anxious to return home to [facility]. Ok for him to return home [...]
--- OUTSIDE RECORDS SUMMARY | ~2019-05-06 | XMS | Encounter Summary ---
Demographics + + + | Address | [address] | | | [place] [address] | + + + | Home Phone [...] + | Linden Farah | ECON | [address] | | | | | [place] | | | | | [address] | | + + + + + Care Team Providers + +------+ + | Care Sagger Preparer Name | Role | Phone | + [...] Pharmacy | | | | | | [address] | | | | | | [place], | | | | | | [place] [address] | | | +--------+ + + + [...]
--- OUTSIDE RECORDS SUMMARY | ~2019-05-06 | XMS | Encounter Summary ---
Demographics + + + | Address | [address] | | | [place] [address] | + + + | Home Phone [...] + | Linden Farah | ECON | [address] | | | | | [place] | | | | | [address] | | + + + + + Care Team Providers + +------+ + | Care Department Store Salesperson Name | Role | Phone | + [...] Helen Tolentino | | | 2016 | [facility] | [facility] | MD Juliana [address] | | | | | Admitting Desk | [address] | | | | | Located on the [address] | [place], [place] | | | | | [facility] [address] | [address] | | | | | [address] | [phone] | | | | | [place], [place] | | | | | | [address] | Jan Downs, | | | | | | FINANCIAL CONSULTANT [address] | | | | | | [address] | | | | | | [place], [place] | | | | | | [address] | | | | | | [phone] | | | | | | | [...] | | on | Posterior; leg | Davdia Corea RN | | +--------+ + + [...]
[~2019-05-06 18:39] MED LIST changes: +OXAYDO5 MG PO; +ZOFRAN ODT4 MG PO
[2019-05-06] MEDS ORDERED: CARVEDILOL6.25 MG PO (18:49)
[2019-05-06] MEDS ORDERED: TYLENOL WITH C1 EACH PO (20:39)
== END 2019-05-06 20:53 | disposition home or self-care (01) ==
LOC: ED 18:39
DX: T60.3X1A Toxic effect of herbicides and fungicides, accidental (unintentional), initial encounter (principal); T26.62XA Corrosion of cornea and conjunctival sac, left eye, initial encounter; I10 Essential (primary) hypertension; Z87.891 Personal history of nicotine dependence; Z79.899 Other long term (current) drug therapy
CPT/HCPCS: 99283

== ENCOUNTER 2023-06-15 09:09 | Day surgery (SDC) | payer MEDICARE, BC ==
[~2023-06-15] VITALS: Ht 177.8 cm; Wt 107.2 kg
[~2023-06-15 09:09] MED LIST changes: +CARVEDILOL6.25 MG PO; +TYLENOL WITH C1 EACH PO
[2023-06-15] MEDS ORDERED: LYRICA75 MG PO (09:31)
[2023-06-15] MEDS ORDERED: PANTOPRAZOLE SO40 M2 PO (09:31)
[2023-06-15] MEDS ORDERED: FENOFIBRATE145 MG PO (09:32)
[2023-06-15] MEDS ORDERED: AVAPRO75 MG PO (09:33)
[2023-06-15 09:40] VITALS: BP 131/80
--- NOTE | 2023-06-15 11:23 | NUR ---
06/15/23 1123 Bessie Zhong 1108- PT ARRIVES TO PACU UNIT FROM [place]. PT ARRIVES A&O VIA STRETCHER. PT ON 2 L OF O2 VIA NC. PT RESPIRATIONS EVEN AND UNLABORED, NO SIGNS OF DISTRESS. O2 >90% VIA CONT PULSE OX. PT ASKS QUESTIONS APPROPRIATELY. 1119- NARCISA JACOBSON AT BEDSIDE DISCUSSING PROCEDURE AND FINDINGS W/PT. ALL QUESTIONS ANSWERED AT THIS TIME. 1121- PT TITRATED TO RA, PT O2 >90% VIA PULSE OX AT THIS TIME. PT RESPIRATIONS EVEN AND UNLABORED, NO SIGNS OF DISTRESS. HOB ELEVATED TO 30 DEGREES. PT TAKING DEEP BREATHS.
[2023-06-15 11:55] VITALS: BP 123/77
--- NOTE | 2023-06-16 05:37 | OR ---
[facility] [address] [place], [place] [address] Signed DATE OF OPERATION: 06/15/2023 SURGEON: Nat Brewster MD PREOPERATIVE DIAGNOSES: 1. Gastroesophageal reflux disease. 2. Heartburn, sore throat and earache. 3. Discontinued alcohol 1 month ago. POSTOPERATIVE DIAGNOSES: 1. Minimal distal gastritis. 2. Small hiatal hernia (2 cm). PROCEDURE: EGD with CLOtest and biopsy of the antrum. ESTIMATED BLOOD LOSS: None. INDICATIONS: Khushboo is a 67-year-old gentleman, who was asked to see me for upper endoscopy. His dentist was worried that he may be grinding his teeth, but also may be having some acid reflux. He also has had a sore throat and earache and even some heartburn. He is started on Protonix and seems to feel a little better. He stopped all alcohol about a month ago. He said that really helped, particularly when he lies supine before going to bed. He also quit chewing snuff back in 2016. He thinks it has actually bothered him now for several years. He had a chest x-ray which was negative. A CT scan of the abdomen and pelvis in September of this year was also negative. In the office, I gave Khushboo a pamphlet on upper endoscopy. He is very familiar with endoscopy having gone through several colonoscopies. There is risk including, but not limited to gas bloating, crampy abdominal pain, bleeding, perforation requiring surgery, and missed diagnosis. We also reviewed the need for IV conscious sedation. He said his cousin would take him home. He had expressed understanding and wished to proceed. DESCRIPTION OF PROCEDURE: Khushboo was taken into the endoscopy suite and placed in the supine semi-recumbent position. He was given IV sedation with 5 mg of Versed and 100 mcg of fentanyl. The posterior oropharynx was anesthetized with lidocaine spray. A bite block was utilized for the case. The adult gastroscope was introduced and advanced under direct visualization of the camera without difficulty. The duodenum and pyloric channel were Electronically Signed By: NAT BREWSTER MD 06/16/23 0537 PATIENT NAME: KHUSHBOO BARTH OPERATIVE REPORT DATE OF : 53 REPORT #: [id number] PHYSICIAN: NAT BREWSTER MD PCP: NATANAEL ELLIOTT MD REPORT IS CONFIDENTIAL AND NOT TO BE RELEASED WITHOUT AUTHORIZATION [facility] [address] [place], [place] [address] Signed unremarkable. The distal part of the stomach showed very minimal inflammatory changes right around the exit of the antrum into the pyloric bulb. There is no ulcerations in the bulb or the stomach. We went ahead and took a biopsy from the antrum for pathologic review as well as CLOtest. Upon retroflexion of the scope, we can see that he has a small hiatal hernia. The scope was withdrawn up through the area of the GE junction, which was compliant without stricture. There was no gastric or esophageal varices. Very minimal irritation on the edge of the Z-line. There was no Todd's mucosa and no distal esophagitis. Middle and upper esophagus were unremarkable. We did not biopsy along the GE junction. His vocal cords and arytenoids were unremarkable. After this, the gas was suctioned out and the upper endoscopy scope was removed. Gunder tolerated the procedure quite well. RECOMMENDATIONS: I will see Khushboo back in my office in 7 to 14 days to review his results. It looks like he is going to need an H2 jaye or a proton pump inhibitor based on his hiatal hernia and symptoms. Nat Brewster MD ALB/MODL /[id number] cc: MD Natanael Hobbs MD Copies: NAT BREWSTER MD, MALCOLM MD ~ Electronically Signed By: NAT BREWSTER MD 06/16/23 0537 PATIENT NAME: KHUSHBOO BARTH OPERATIVE REPORT DATE OF : 53 REPORT #: [id number] PHYSICIAN: NAT BREWSTER MD PCP: NATANAEL ELLIOTT MD REPORT IS CONFIDENTIAL AND NOT TO BE RELEASED WITHOUT AUTHORIZATION
--- NOTE | 2023-06-17 15:34 | PATH ---
[facility] [address] [place], [place] [address] Signed SPECIMEN(S): A ANTRUM/PYLORUS BIOPSY SPECIMEN SOURCE: A. ANTRUM/PYLORUS BIOPSY CLINICAL HISTORY: EGD. Change in teeth; acid reflux; heartburn. FINAL PATHOLOGIC DIAGNOSIS: Antrum/pylorus biopsy: - Benign gastric type mucosa with focal slight chronic inflammation. - Negative for evidence of Helicobacter organisms on routine HE stained sections. JVR:clint MICROSCOPIC EXAMINATION: Histologic sections of all submitted blocks are examined by light microscopy. These findings, together with the gross examination, support the pathologic diagnosis. GROSS DESCRIPTION: The specimen, labeled and designated "Gagan, biopsy, antrum/pylorus biopsy," is received in formalin and consists of one fragment of soft ravi tissue that is up to 0.9 cm in greatest dimension. Entirely submitted in (A1). TW (under the direct supervision of a pathologist) The Gross Description was prepared using a voice recognition system. The report was reviewed for accuracy; however, sound-alike word errors, addition and/or deletions may occur. If there is any question about this report, please contact Client Services. PERFORMING LABORATORY: Technical component was performed by [facility], [address] [place] [id number] (CLIA# [id number]). Professional interpretation was performed by [facility], [address] [place] [id number] (CLIA#: [id number]). Diagnostician: Tad Wells MD Pathologist Electronically Signed 06/17/2023 PATIENT NAME: KHUSHBOO BARTH PATHOLOGY DATE OF : 53 REPORT #: [id number] PHYSICIAN: HATTIE PATHOLOGY PCP: JELENA ELLIOTT MD REPORT IS CONFIDENTIAL AND NOT TO BE RELEASED WITHOUT AUTHORIZATION [address] [address] Signed Copies: ~ PATIENT NAME: KHUSHBOO BARTH PATHOLOGY DATE OF : 53 REPORT #: [id number] PHYSICIAN: HATTIE PATHOLOGY PCP: JELENA ELLIOTT MD REPORT IS CONFIDENTIAL AND NOT TO BE RELEASED WITHOUT AUTHORIZATION
== END 2023-06-15 11:45 | disposition home or self-care (01) ==
LOC: DS 09:09
PROVIDERS: ATTEND Colon & Rectal Surgery
PROC: 0DB78ZX Excision of Stomach, Pylorus, Via Natural or Artificial Opening Endoscopic, Diagnostic (ICD-10-PCS; principal; 2023-06-15 11:00)
DX: K29.70 Gastritis, unspecified, without bleeding (principal); K21.9 Gastro-esophageal reflux disease without esophagitis; E66.9 Obesity, unspecified; I12.9 Hypertensive chronic kidney disease with stage 1 through stage 4 chronic kidney disease, or unspecified chronic kidney disease; N18.31 Chronic kidney disease, stage 3a
CPT/HCPCS: 36415; 87077; G0500; J2250; J3010; J7121